=== PATIENT | male | born 1975 ===

== ENCOUNTER 2019-12-07 09:36 | Outpatient (REF) | payer OTHER, SELFPAY | END 2019-12-07 09:37 | disposition home or self-care (01) | LOC: HO.LAB 09:36 | PROVIDERS: PCP Physician Assistant; Visit Provider Internal Medicine | DX: Z20.828 Contact with and (suspected) exposure to other viral communicable diseases (principal) | CPT/HCPCS: 87635 ==

== ENCOUNTER 2019-12-10 08:06 | Outpatient (REF) | payer OTHER, SELFPAY ==
[2019-12-10 09:42] LABS: Basophils Percent Auto 0.6 % (0-2); Imm Gran Abs Auto 0.03 X10*3/uL (0.00-0.03); Imm Gran Pct Auto 0.5 % (0.0-0.4); MANUAL DIFF FLAG SCAN; PLT CLUMP 1; SCAN SMEAR FLAG 1
[2019-12-10 09:44] LABS: Eosinophils Absolute Auto 0.1 X10*3/uL (0.0-0.4); Eosinophils Percent Auto 1.2 % (0-4); Hematocrit 40.4 % (42-52); Hemoglobin 13.1 g/dl (14.0-18.0); Lymphocytes Absolute Auto 2.2 X10*3/uL (1.2-4.9); Lymphocytes Percent Auto 32.6 % (20-40); Mean Corpuscular HGB Conc 32.4 g/dl (31.0-36.0); Mean Corpuscular Hemoglobin 29.6 pg (27.0-33.0); Mean Corpuscular Volume 91.2 fL (80-98); Mean Platelet Volume 11.2 fL (9.4-12.4); Monocytes Absolute Auto 0.4 X10*3/uL (0.1-1.2); Monocytes Percent Auto 6.6 % (2-11); Neutrophils Absolute Auto 3.9 X10*3/uL (2.0-8.3); Neutrophils Percent Auto 58.5 % (45-73); Platelet Count 204 X10*3/uL (160-400); Red Blood Count 4.43 X10*6/uL (4.60-5.80); Red Cell Distribution Width 12.7 % (11.0-16.0); White Blood Count 6.6 X10*3/uL (4.8-10.8)
[2019-12-10 10:14] LABS: SLIDE REVIEW VERIFIED
[2019-12-10 10:17] LABS: Alanine Aminotransferase 28 U/L (0-40); Albumin Level 4.1 g/dL (3.5-5.0); Alkaline Phosphatase 76 U/L (39-117); Anion Gap 13 (12-20); Aspartate Amino Transferase 23 U/L (5-37); Bilirubin Total 0.6 mg/dL (0.0-1.0); Blood Urea Nitrogen 11 mg/dL (9-16); Calcium 8.7 mg/dL (8.4-10.2); Carbon Dioxide 28 mmol/L (22-29); Chloride 102 mmol/L (96-108); Cholesterol 159 mg/dL; Estimated Glomerular Filt Rate > 60; Glucose Fasting 112 mg/dL (60-99); HDL Cholesterol 38 mg/dL; LDL Cholesterol Calculated 92 mg/dl; Potassium 4.4 mmol/l (3.3-5.1); Sodium 139 mmol/L (135-145); Total Protein 7.2 g/dL (6.5-8.0); Triglycerides 146 mg/dL
[2019-12-10 14:13] LABS: TSH reflex Free T4 2.08 mIU/mL (0.32-4.0)
== END 2019-12-10 08:07 | disposition home or self-care (01) ==
LOC: HO.LAB 08:06
PROVIDERS: PCP Physician Assistant; Visit Provider Physician Assistant
DX: I10 Essential (primary) hypertension (principal)
CPT/HCPCS: 36415; 80053; 80061; 84443; 85025

== ENCOUNTER → 2019-12-13 13:55 | Outpatient (BNVA) | payer OTHER, SELFPAY | PROVIDERS: PCP Physician Assistant; Visit Provider Internal Medicine Cardiovascular Disease | DX: I10 Essential (primary) hypertension (principal); Z79.899 Other long term (current) drug therapy | CPT/HCPCS: 99212 ==

== ENCOUNTER → 2019-12-27 08:45 | Outpatient (BNVA) | payer OTHER, SELFPAY | PROVIDERS: PCP Physician Assistant; Referring Provider Physician Assistant; Visit Provider Internal Medicine Cardiovascular Disease | DX: Z76.89 Persons encountering health services in other specified circumstances (principal) ==

== ENCOUNTER → 2020-01-24 09:32 | Outpatient (BNVA) | payer OTHER, SELFPAY | PROVIDERS: PCP Physician Assistant; Visit Provider Internal Medicine | DX: G47.33 Obstructive sleep apnea (adult) (pediatric) (principal); R06.00 Dyspnea, unspecified; F17.210 Nicotine dependence, cigarettes, uncomplicated; E66.01 Morbid (severe) obesity due to excess calories; Z99.89 Dependence on other enabling machines and devices | CPT/HCPCS: 99212 ==

== ENCOUNTER 2020-01-27 07:40 | Outpatient (REF) | payer OTHER, SELFPAY ==
--- NOTE | 2020-01-27 16:09 | PFT_ITS ---
FLOWS: FEV1 of 77% of predicted at 2.83 L. FVC 68% of predicted at 3.18 L. FEV1 to FVC ratio of 0.89. No bronchodilator response. LUNG VOLUMES: Total lung capacity 76% of predicted at 4.87 L. Residual volume 95% of predicted at 1.71 L. Slow vital capacity 69% of predicted at 3.15 L. Expiratory reserve volume 11% of predicted at 0.16 L. Diffusion capacity is normal. In comparison to pulmonary function test performed in May of 2018, FEV1 has been without significant changes, FVC has decreased by 0.38 L; total lung capacity, residual volume, slow vital capacity have been without significant changes; expiratory reserve volume has decreased by 0.35 L; diffusion capacity has improved by 1.08 mL/minute/mmHg. IMPRESSION: Moderate restrictive ventilatory defect with no bronchodilator response. Decreased expiratory reserve volume suggests extrathoracic restriction likely secondary to abdominal obesity. Of note, the patient has significantly elevated body mass index. MD OSWALD Cheng/MODL / [id number]
== END 2020-01-27 07:41 | disposition home or self-care (01) ==
LOC: HO.RESP 07:40
PROVIDERS: Visit Provider Internal Medicine
DX: E66.01 Morbid (severe) obesity due to excess calories (principal); R06.00 Dyspnea, unspecified
CPT/HCPCS: 94060; 94727; 94729

== ENCOUNTER → 2020-02-02 07:38 | Outpatient (BNVA) | payer OTHER, SELFPAY | PROVIDERS: PCP Physician Assistant; Visit Provider Surgery | DX: Z76.89 Persons encountering health services in other specified circumstances (principal) ==

== ENCOUNTER → 2020-02-10 09:09 | Outpatient (BNVA) | payer OTHER, SELFPAY | PROVIDERS: PCP Physician Assistant; Visit Provider Physician Assistant | DX: Z76.89 Persons encountering health services in other specified circumstances (principal) ==

== ENCOUNTER → 2020-02-18 08:06 | Outpatient (BNVA) | payer OTHER, SELFPAY | PROVIDERS: PCP Physician Assistant; Visit Provider Physician Assistant | DX: Z76.89 Persons encountering health services in other specified circumstances (principal) ==

== ENCOUNTER → 2020-02-25 09:35 | Outpatient (BNVA) | payer OTHER, SELFPAY | PROVIDERS: PCP Physician Assistant; Visit Provider Physician Assistant | DX: Z76.89 Persons encountering health services in other specified circumstances (principal) ==

== ENCOUNTER → 2020-03-01 08:08 | Outpatient (BNVA) | payer OTHER, SELFPAY | PROVIDERS: PCP Physician Assistant; Visit Provider Surgery ==

== ENCOUNTER → 2020-03-03 10:28 | Outpatient (BNVA) | payer OTHER, SELFPAY | PROVIDERS: PCP Physician Assistant; Visit Provider Physician Assistant ==

== ENCOUNTER → 2020-03-10 09:17 | Outpatient (BNVA) | payer OTHER, SELFPAY | PROVIDERS: PCP Physician Assistant; Visit Provider Physician Assistant ==

== ENCOUNTER 2020-03-15 09:08 | Outpatient (REF) | payer OTHER, SELFPAY ==
[2020-03-15 09:46] LABS: MANUAL DIFF FLAG NO
[2020-03-15 09:52] LABS: Basophils Percent Auto 0.2 % (0-2); Hematocrit 40.3 % (42-52); Hemoglobin 13.2 g/dl (14.0-18.0); Imm Gran Abs Auto 0.06 X10*3/uL (0.00-0.03); Imm Gran Pct Auto 0.5 % (0.0-0.4); Lymphocytes Absolute Auto 2.5 X10*3/uL (1.2-4.9); Lymphocytes Percent Auto 20.3 % (20-40); Mean Corpuscular HGB Conc 32.8 g/dl (31.0-36.0); Mean Corpuscular Hemoglobin 29.4 pg (27.0-33.0); Mean Corpuscular Volume 89.8 fL (80-98); Monocytes Absolute Auto 0.7 X10*3/uL (0.1-1.2); Monocytes Percent Auto 5.7 % (2-11); Neutrophils Absolute Auto 8.9 X10*3/uL (2.0-8.3); Neutrophils Percent Auto 73.3 % (45-73); Platelet Count 256 X10*3/uL (160-400); Red Blood Count 4.49 X10*6/uL (4.60-5.80); Red Cell Distribution Width 13.3 % (11.0-16.0); White Blood Count 12.1 X10*3/uL (4.8-10.8)
[2020-03-15 10:22] LABS: Alanine Aminotransferase 18 U/L (0-40); Albumin Level 4.4 g/dL (3.5-5.0); Alkaline Phosphatase 78 U/L (39-117); Anion Gap 15 (12-20); Aspartate Amino Transferase 17 U/L (5-37); Bilirubin Total 0.4 mg/dL (0.0-1.0); Blood Urea Nitrogen 13 mg/dL (9-16); Calcium 9.4 mg/dL (8.4-10.2); Carbon Dioxide 25 mmol/L (22-29); Chloride 104 mmol/L (96-108); Cholesterol 162 mg/dL; Estimated Glomerular Filt Rate > 60; Glucose Fasting 103 mg/dL (60-99); HDL Cholesterol 41 mg/dL; LDL Cholesterol Calculated 103 mg/dl; Potassium 4.1 mmol/L (3.3-5.1); Sodium 140 mmol/L (135-145); Total Protein 7.8 g/dL (6.5-8.0); Triglycerides 90 mg/dL
[2020-03-15 10:26] LABS: Microalbum/Creatinine Ratio Ur 36.8 ug/mg cr
[2020-03-15 10:33] LABS: Estimated Average Glucose 120 mg/dL; Hemoglobin A1c % 5.8 %
[2020-03-15 10:46] LABS: TSH reflex Free T4 0.84 uIU/mL (0.32-4.0)
== END 2020-03-15 09:09 | disposition home or self-care (01) ==
LOC: HO.LAB 09:08
PROVIDERS: PCP Physician Assistant; Visit Provider Physician Assistant
DX: I10 Essential (primary) hypertension (principal); E66.01 Morbid (severe) obesity due to excess calories
CPT/HCPCS: 36415; 80053; 80061; 82043; 83036; 84443; 85025

== ENCOUNTER → 2020-03-17 10:39 | Outpatient (BNVA) | payer OTHER, SELFPAY | PROVIDERS: PCP Physician Assistant; Visit Provider Surgery ==

== ENCOUNTER → 2020-03-24 09:24 | Outpatient (BNVA) | payer OTHER, SELFPAY | PROVIDERS: PCP Physician Assistant; Visit Provider Physician Assistant ==

== ENCOUNTER → 2020-03-31 08:34 | Outpatient (BNVA) | payer OTHER, SELFPAY | PROVIDERS: PCP Physician Assistant; Visit Provider Surgery ==

== ENCOUNTER → 2020-04-07 10:20 | Outpatient (BNVA) | payer OTHER, SELFPAY | PROVIDERS: PCP Physician Assistant; Visit Provider Physician Assistant ==

== ENCOUNTER 2020-04-11 07:35 | Outpatient (REF) | payer OTHER, SELFPAY ==
--- NOTE | ~2020-04-11 | XR_ITS ---
EXAMINATION: BILATERAL KNEE X-RAY CLINICAL INFORMATION: Pain COMPARISON: Previous x-ray most recent April 2019 TECHNIQUE: 3 views of each knee FINDINGS: Right: Bone alignment is normal. No fracture or dislocation is seen. There is mild joint space narrowing at the medial femoral tibial joint. There are small osteophytes at the patellofemoral joint. There is no significant joint effusion. Left: Bone alignment is normal. No fracture or dislocation is seen. There are small osteophytes at the medial femoral tibial and patellofemoral joints. There is no significant joint effusion. XR/XR knee LT 2V IMPRESSION: Mild bilateral arthritis.
--- NOTE | ~2020-04-11 | XR_ITS ---
EXAMINATION: BILATERAL KNEE X-RAY CLINICAL INFORMATION: Pain COMPARISON: Previous x-ray most recent April 2019 TECHNIQUE: 3 views of each knee FINDINGS: Right: Bone alignment is normal. No fracture or dislocation is seen. There is mild joint space narrowing at the medial femoral tibial joint. There are small osteophytes at the patellofemoral joint. There is no significant joint effusion. Left: Bone alignment is normal. No fracture or dislocation is seen. There are small osteophytes at the medial femoral tibial and patellofemoral joints. There is no significant joint effusion. XR/XR knee RT 2V IMPRESSION: Mild bilateral arthritis.
--- NOTE | ~2020-04-11 | XR_ITS ---
EXAMINATION: BILATERAL KNEE X-RAY CLINICAL INFORMATION: Pain COMPARISON: Previous x-ray most recent April 2019 TECHNIQUE: 3 views of each knee FINDINGS: Right: Bone alignment is normal. No fracture or dislocation is seen. There is mild joint space narrowing at the medial femoral tibial joint. There are small osteophytes at the patellofemoral joint. There is no significant joint effusion. Left: Bone alignment is normal. No fracture or dislocation is seen. There are small osteophytes at the medial femoral tibial and patellofemoral joints. There is no significant joint effusion. XR/XR knee standing BI IMPRESSION: Mild bilateral arthritis.
== END 2020-04-11 07:36 | disposition home or self-care (01) ==
LOC: HO.XRAY 07:35
PROVIDERS: PCP Physician Assistant; Visit Provider Orthopaedic Surgery
DX: M17.0 Bilateral primary osteoarthritis of knee (principal); F17.210 Nicotine dependence, cigarettes, uncomplicated
CPT/HCPCS: 20610; 73560; 73565; 99212

== ENCOUNTER → 2020-04-12 08:49 | Outpatient (BNVA) | payer OTHER, SELFPAY | PROVIDERS: PCP Physician Assistant; Visit Provider Internal Medicine Cardiovascular Disease | DX: R06.00 Dyspnea, unspecified (principal); I10 Essential (primary) hypertension | CPT/HCPCS: 99212; J1040 ==

== ENCOUNTER → 2020-04-14 10:48 | Outpatient (BNVA) | payer OTHER, SELFPAY | PROVIDERS: PCP Physician Assistant; Visit Provider Physician Assistant ==

== ENCOUNTER → 2020-04-21 10:08 | Outpatient (BNVA) | payer OTHER, SELFPAY | PROVIDERS: PCP Physician Assistant; Visit Provider Physician Assistant ==

== ENCOUNTER → 2020-04-24 08:35 | Outpatient (BNVA) | payer OTHER, SELFPAY | PROVIDERS: PCP Physician Assistant; Visit Provider Surgery ==

== ENCOUNTER 2020-04-26 09:22 | Outpatient (REF) | payer OTHER, SELFPAY | END 2020-04-26 09:23 | disposition home or self-care (01) | LOC: HO.LAB 09:22 | PROVIDERS: Visit Provider Internal Medicine | DX: Z20.822 Contact with and (suspected) exposure to COVID-19 (principal) | CPT/HCPCS: 36415; C9803; U0003; U0005 ==

== ENCOUNTER → 2020-04-28 11:36 | Outpatient (BNVA) | payer OTHER, SELFPAY | PROVIDERS: PCP Physician Assistant; Visit Provider Physician Assistant ==

== ENCOUNTER 2020-05-03 11:06 | Outpatient (REF) | payer OTHER, SELFPAY | END 2020-05-03 11:07 | disposition home or self-care (01) | LOC: HO.LAB 11:06 | PROVIDERS: Visit Provider Internal Medicine | DX: Z20.822 Contact with and (suspected) exposure to COVID-19 (principal) | CPT/HCPCS: 36415; C9803; U0003; U0005 ==

== ENCOUNTER → 2020-05-05 09:58 | Outpatient (BNVA) | payer OTHER, SELFPAY | PROVIDERS: PCP Physician Assistant; Visit Provider Physician Assistant ==

== ENCOUNTER → 2020-05-19 08:11 | Outpatient (BNVA) | payer OTHER, SELFPAY | PROVIDERS: PCP Physician Assistant; Visit Provider Surgery ==

== ENCOUNTER → 2020-06-02 08:44 | Outpatient (BNVA) | payer OTHER, SELFPAY | PROVIDERS: PCP Physician Assistant; Visit Provider Physician Assistant ==

== ENCOUNTER → 2020-06-09 09:12 | Outpatient (BNVA) | payer OTHER, SELFPAY | PROVIDERS: PCP Physician Assistant; Referring Provider Physician Assistant; Visit Provider Physician Assistant ==

== ENCOUNTER → 2020-06-16 08:27 | Outpatient (BNVA) | payer OTHER, SELFPAY | PROVIDERS: PCP Physician Assistant; Visit Provider Surgery ==

== ENCOUNTER → 2020-07-17 07:40 | Outpatient (BNVA) | payer OTHER, SELFPAY | PROVIDERS: PCP Physician Assistant; Visit Provider Surgery ==

== ENCOUNTER → 2020-09-01 07:28 | Outpatient (BNVA) | payer OTHER, SELFPAY | PROVIDERS: PCP Physician Assistant; Visit Provider Surgery ==

== ENCOUNTER → 2020-09-08 08:02 | Outpatient (BNVA) | payer OTHER, SELFPAY | PROVIDERS: PCP Physician Assistant; Visit Provider Surgery ==

== ENCOUNTER → 2020-09-12 09:11 | Outpatient (BNVA) | payer OTHER, SELFPAY | PROVIDERS: Visit Provider Orthopaedic Surgery | DX: M17.0 Bilateral primary osteoarthritis of knee (principal) | CPT/HCPCS: 20610; 99212; J1040 ==

== ENCOUNTER → 2020-09-26 09:36 | Outpatient (BNVA) | payer OTHER, SELFPAY | PROVIDERS: PCP Physician Assistant; Visit Provider Internal Medicine | DX: G47.33 Obstructive sleep apnea (adult) (pediatric) (principal); E66.01 Morbid (severe) obesity due to excess calories; J98.4 Other disorders of lung; Z99.89 Dependence on other enabling machines and devices | CPT/HCPCS: 99212 ==

== ENCOUNTER → 2020-11-06 09:17 | Outpatient (BNVA) | payer OTHER, SELFPAY | PROVIDERS: PCP Physician Assistant; Referring Provider Physician Assistant; Visit Provider Internal Medicine Cardiovascular Disease ==

== ENCOUNTER 2021-02-01 07:20 | Outpatient (REF) | payer OTHER, SELFPAY | END 2021-02-01 07:21 | disposition home or self-care (01) | LOC: HO.HMGCLDS 07:20 | PROVIDERS: PCP Physician Assistant; Visit Provider Physician Assistant | DX: Z20.822 Contact with and (suspected) exposure to COVID-19 (principal) | CPT/HCPCS: C9803; U0003; U0005 ==

== ENCOUNTER → 2021-02-26 07:53 | Outpatient (BNVA) | payer OTHER, SELFPAY | PROVIDERS: PCP Physician Assistant; Visit Provider Orthopaedic Surgery | DX: M17.0 Bilateral primary osteoarthritis of knee (principal); E66.01 Morbid (severe) obesity due to excess calories; Z68.45 Body mass index [BMI] 70 or greater, adult | CPT/HCPCS: 20610; 99212; J1100 ==

== ENCOUNTER 2021-03-19 14:39 | Outpatient (REF) | payer OTHER, SELFPAY | END 2021-03-19 14:40 | disposition home or self-care (01) | LOC: HO.HOSX 14:39 | PROVIDERS: Visit Provider Orthopaedic Surgery | DX: Z13.89 Encounter for screening for other disorder (principal) ==

== ENCOUNTER 2021-03-20 11:30 | Outpatient (REF) | payer OTHER, SELFPAY ==
--- NOTE | ~2021-03-20 | XR_ITS ---
EXAMINATION: XR KNEE, BILATERAL CLINICAL INFORMATION: Pain in the knees. COMPARISON: Bilateral knee x-rays of April 2020. TECHNIQUE: 3 views of each knee. FINDINGS: RIGHT KNEE: Medial compartment: Joint space narrowing and small marginal osteophytes indicative of vrzl-ii-vxdtqujs osteoarthritis. Lateral compartment: Marginal osteophytes without joint space narrowing indicative of mild osteoarthritis. Patellofemoral compartment: Marginal osteophytes and subchondral cystic change indicative of gvtj-qt-omaevcbd osteoarthritis unchanged. No effusion. LEFT KNEE: Medial compartment: Marginal osteophytes and mild joint space narrowing indicative of yxpk-gm-rzjjlkxz osteoarthritis unchanged. Lateral compartment: Marginal osteophytes without joint space narrowing indicative of mild arthrosis unchanged. Patellofemoral compartment: Marginal osteophytes indicative of mild osteoarthritis unchanged. No effusion. XR/XR knee LT 2V IMPRESSION: Right knee: Osteoarthritis unchanged with degenerative changes most prominent in the medial compartment being amds-[id number]. Left knee: Osteoarthritis unchanged with degenerative changes most prominent in the medial compartment which is noix-iy-jiudknaq.
--- NOTE | ~2021-03-20 | XR_ITS ---
EXAMINATION: XR KNEE, BILATERAL CLINICAL INFORMATION: Pain in the knees. COMPARISON: Bilateral knee x-rays of April 2020. TECHNIQUE: 3 views of each knee. FINDINGS: RIGHT KNEE: Medial compartment: Joint space narrowing and small marginal osteophytes indicative of rycf-zm-zbnwfpiv osteoarthritis. Lateral compartment: Marginal osteophytes without joint space narrowing indicative of mild osteoarthritis. Patellofemoral compartment: Marginal osteophytes and subchondral cystic change indicative of zirn-ix-xaruoauj osteoarthritis unchanged. No effusion. LEFT KNEE: Medial compartment: Marginal osteophytes and mild joint space narrowing indicative of ozfg-wx-oxorskfr osteoarthritis unchanged. Lateral compartment: Marginal osteophytes without joint space narrowing indicative of mild arthrosis unchanged. Patellofemoral compartment: Marginal osteophytes indicative of mild osteoarthritis unchanged. No effusion. XR/XR knee standing BI IMPRESSION: Right knee: Osteoarthritis unchanged with degenerative changes most prominent in the medial compartment being hpxn-kz-qekfofen. Left knee: Osteoarthritis unchanged with degenerative changes most prominent in the medial compartment which is qhji-ql-ssmimoop.
--- NOTE | ~2021-03-20 | XR_ITS ---
EXAMINATION: XR KNEE, BILATERAL CLINICAL INFORMATION: Pain in the knees. COMPARISON: Bilateral knee x-rays of April 2020. TECHNIQUE: 3 views of each knee. FINDINGS: RIGHT KNEE: Medial compartment: Joint space narrowing and small marginal osteophytes indicative of roqa-qx-bawbtaoa osteoarthritis. Lateral compartment: Marginal osteophytes without joint space narrowing indicative of mild osteoarthritis. Patellofemoral compartment: Marginal osteophytes and subchondral cystic change indicative of lvqb-eu-xathrais osteoarthritis unchanged. No effusion. LEFT KNEE: Medial compartment: Marginal osteophytes and mild joint space narrowing indicative of miwf-cu-fncirmhg osteoarthritis unchanged. Lateral compartment: Marginal osteophytes without joint space narrowing indicative of mild arthrosis unchanged. Patellofemoral compartment: Marginal osteophytes indicative of mild osteoarthritis unchanged. No effusion. XR/XR knee RT 2V IMPRESSION: Right knee: Osteoarthritis unchanged with degenerative changes most prominent in the medial compartment being ralr-jm-fxnyebwr. Left knee: Osteoarthritis unchanged with degenerative changes most prominent in the medial compartment which is ihpa-bb-xtwnamwa.
== END 2021-03-20 11:31 | disposition home or self-care (01) ==
LOC: HO.XRAY 11:30
PROVIDERS: PCP Physician Assistant; Visit Provider Orthopaedic Surgery
DX: M25.561 Pain in right knee (principal); M25.562 Pain in left knee
CPT/HCPCS: 73560; 73565

== ENCOUNTER → 2021-04-04 09:08 | Outpatient (BNVA) | payer OTHER, SELFPAY | PROVIDERS: PCP Physician Assistant; Visit Provider Internal Medicine | DX: G47.33 Obstructive sleep apnea (adult) (pediatric) (principal); J98.4 Other disorders of lung; E66.01 Morbid (severe) obesity due to excess calories; Z99.89 Dependence on other enabling machines and devices; Z68.45 Body mass index [BMI] 70 or greater, adult | CPT/HCPCS: 99212 ==

== ENCOUNTER → 2021-04-16 14:06 | Outpatient (BNVA) | payer OTHER, SELFPAY | PROVIDERS: PCP Physician Assistant; Visit Provider Orthopaedic Surgery | DX: M17.0 Bilateral primary osteoarthritis of knee (principal); E66.01 Morbid (severe) obesity due to excess calories | CPT/HCPCS: 99212 ==

== ENCOUNTER 2021-05-01 10:45 | Outpatient (REF) | payer OTHER, SELFPAY ==
[2021-05-01 12:02] LABS: Hematocrit 41.8 % (42.0-52.0); Hemoglobin 13.5 g/dl (14.0-18.0); Mean Corpuscular HGB Conc 32.3 g/dl (31.0-36.0); Mean Corpuscular Hemoglobin 29.5 pg (27.0-33.0); Mean Corpuscular Volume 91.3 fL (80.0-98.0); Mean Platelet Volume 10.8 fL (9.4-12.4); Platelet Count 228 X10*3/uL (160-400); Red Blood Count 4.58 X10*6/uL (4.60-5.80); Red Cell Distribution Width 13.2 % (11.0-16.0); White Blood Count 8.3 X10*3/uL (4.8-10.8)
[2021-05-01 12:35] LABS: Alanine Aminotransferase 26 U/L (0-40); Albumin Level 4.1 g/dL (3.5-5.0); Alkaline Phosphatase 73 U/L (39-117); Anion Gap 13 (12-20); Aspartate Amino Transferase 24 U/L (5-37); Bilirubin Total 0.5 mg/dL (0.0-1.0); Blood Urea Nitrogen 11 mg/dL (9-16); Calcium 9.6 mg/dL (8.4-10.2); Carbon Dioxide 27 mmol/L (22-29); Chloride 104 mmol/L (96-108); Cholesterol 162 mg/dL; Estimated Glomerular Filt Rate > 60; Glucose Fasting 97 mg/dL (60-99); HDL Cholesterol 47 mg/dL; LDL Cholesterol Calculated 75 mg/dl; Potassium 4.5 mmol/L (3.3-5.1); Sodium 139 mmol/L (135-145); Total Protein 7.3 g/dL (6.5-8.0); Triglycerides 203 mg/dL
[2021-05-01 12:41] LABS: Creatinine Urine 135.36 mg/dL; Microalbum/Creatinine Ratio Ur 4.4 ug/mg cr
[2021-05-01 12:58] LABS: Prostate Specific Antigen Scr 0.09 ng/mL (<0.05-4.0); TSH reflex Free T4 1.92 uIU/mL (0.32-4.0)
[2021-05-01 12:59] LABS: Estimated Average Glucose 126 mg/dL
== END 2021-05-01 10:46 | disposition home or self-care (01) ==
LOC: HO.LAB 10:45
PROVIDERS: PCP Physician Assistant; Visit Provider Physician Assistant
DX: I10 Essential (primary) hypertension (principal); E66.01 Morbid (severe) obesity due to excess calories; Z12.5 Encounter for screening for malignant neoplasm of prostate
CPT/HCPCS: 36415; 80053; 80061; 82043; 83036; 84153; 84443; 85027

== ENCOUNTER → 2021-05-07 09:13 | Outpatient (BNVA) | payer OTHER, SELFPAY | PROVIDERS: PCP Physician Assistant; Referring Provider Physician Assistant; Visit Provider Internal Medicine Cardiovascular Disease | DX: I10 Essential (primary) hypertension (principal); E66.01 Morbid (severe) obesity due to excess calories; Z68.45 Body mass index [BMI] 70 or greater, adult | CPT/HCPCS: 93005; 99212 ==

== ENCOUNTER → 2021-10-10 08:55 | Outpatient (BNVA) | payer OTHER, SELFPAY | PROVIDERS: PCP Physician Assistant; Visit Provider Internal Medicine | DX: E66.01 Morbid (severe) obesity due to excess calories (principal); G47.33 Obstructive sleep apnea (adult) (pediatric); Z99.89 Dependence on other enabling machines and devices; Z68.45 Body mass index [BMI] 70 or greater, adult | CPT/HCPCS: 99212 ==

== ENCOUNTER 2021-11-12 08:44 | Outpatient (REF) | payer OTHER, SELFPAY ==
[2021-11-12 09:13] LABS: Hematocrit 40.7 % (42.0-52.0); Hemoglobin 13.3 g/dl (14.0-18.0); Mean Corpuscular HGB Conc 32.7 g/dl (31.0-36.0); Mean Corpuscular Hemoglobin 29.4 pg (27.0-33.0); Mean Corpuscular Volume 89.8 fL (80.0-98.0); Mean Platelet Volume 10.7 fL (9.4-12.4); Platelet Count 217 X10*3/uL (160-400); Red Blood Count 4.53 X10*6/uL (4.60-5.80); White Blood Count 6.1 X10*3/uL (4.8-10.8)
[2021-11-12 09:25] LABS: Estimated Average Glucose 123 mg/dL; Hemoglobin A1c % 5.9 %
[2021-11-12 09:46] LABS: B Type Natriuretic Peptide 30 pg/mL (<100)
[2021-11-12 09:58] LABS: Alanine Aminotransferase 30 U/L (0-40); Albumin Level 4.1 g/dL (3.5-5.0); Alkaline Phosphatase 67 U/L (39-117); Anion Gap 15 (12-20); Aspartate Amino Transferase 26 U/L (5-37); Bilirubin Total 0.3 mg/dL (0.0-1.0); Blood Urea Nitrogen 9 mg/dL (9-16); Calcium 9.5 mg/dL (8.4-10.2); Carbon Dioxide 25 mmol/L (22-29); Chloride 104 mmol/L (96-108); Cholesterol 157 mg/dL; Estimated Glomerular Filt Rate > 60; Glucose Fasting 105 mg/dL (60-99); HDL Cholesterol 35 mg/dL; LDL Cholesterol Calculated 92 mg/dl; Potassium 4.3 mmol/L (3.3-5.1); Sodium 140 mmol/L (135-145); Total Protein 7.2 g/dL (6.5-8.0); Triglycerides 153 mg/dL
[2021-11-12 10:20] LABS: TSH reflex Free T4 2.01 uIU/mL (0.32-4.0)
[2021-11-12 10:22] LABS: Creatinine Urine 144.12 mg/dL; Microalbum/Creatinine Ratio Ur 6.2 ug/mg cr
== END 2021-11-12 08:45 | disposition home or self-care (01) ==
LOC: HO.LAB 08:44
PROVIDERS: Absent Provider Physician Assistant; PCP Physician Assistant; Visit Provider Nurse Practitioner Family
DX: R60.0 Localized edema (principal); I10 Essential (primary) hypertension
CPT/HCPCS: 36415; 80053; 80061; 82043; 83036; 83880; 84443; 85027

== ENCOUNTER → 2021-12-04 13:51 | Outpatient (BNVA) | payer OTHER, SELFPAY | PROVIDERS: PCP Physician Assistant; Referring Provider Physician Assistant; Visit Provider Nurse Practitioner Family | DX: R06.00 Dyspnea, unspecified (principal); I10 Essential (primary) hypertension; E66.01 Morbid (severe) obesity due to excess calories; G47.33 Obstructive sleep apnea (adult) (pediatric); F17.210 Nicotine dependence, cigarettes, uncomplicated; Z99.89 Dependence on other enabling machines and devices; Z68.45 Body mass index [BMI] 70 or greater, adult | CPT/HCPCS: 99212 ==

== ENCOUNTER → 2022-04-17 09:23 | Outpatient (BNVA) | payer OTHER, SELFPAY | PROVIDERS: PCP Physician Assistant; Visit Provider Internal Medicine | DX: G47.33 Obstructive sleep apnea (adult) (pediatric) (principal); E66.01 Morbid (severe) obesity due to excess calories; J98.4 Other disorders of lung; Z99.89 Dependence on other enabling machines and devices; Z68.45 Body mass index [BMI] 70 or greater, adult | CPT/HCPCS: 99212 ==

== ENCOUNTER → 2022-06-04 07:47 | Outpatient (BNVA) | payer OTHER, SELFPAY | PROVIDERS: PCP Physician Assistant; Referring Provider Physician Assistant; Visit Provider Physician Assistant Surgical ==

== ENCOUNTER 2022-07-22 07:51 | Outpatient (REF) | payer OTHER, SELFPAY ==
[2022-07-25 11:37] LABS: H Pylori Breath Test Negative (Negative)
== END 2022-07-22 07:52 | disposition home or self-care (01) ==
LOC: HO.LNP 07:51
PROVIDERS: Visit Provider Physician Assistant
DX: Z01.818 Encounter for other preprocedural examination (principal); E66.01 Morbid (severe) obesity due to excess calories; G47.33 Obstructive sleep apnea (adult) (pediatric); I10 Essential (primary) hypertension; R06.00 Dyspnea, unspecified; R94.31 Abnormal electrocardiogram [ECG] [EKG]; Z99.89 Dependence on other enabling machines and devices; Z11.0 Encounter for screening for intestinal infectious diseases
CPT/HCPCS: 83013

== ENCOUNTER → 2022-07-22 07:56 | Outpatient (BNVA) | payer OTHER, SELFPAY | PROVIDERS: PCP Physician Assistant; Referring Provider Physician Assistant; Visit Provider Physician Assistant | DX: Z01.810 Encounter for preprocedural cardiovascular examination (principal); I10 Essential (primary) hypertension; R06.00 Dyspnea, unspecified; I45.19 Other right bundle-branch block; R94.31 Abnormal electrocardiogram [ECG] [EKG]; G47.33 Obstructive sleep apnea (adult) (pediatric); E66.01 Morbid (severe) obesity due to excess calories; G43.009 Migraine without aura, not intractable, without status migrainosus; M17.0 Bilateral primary osteoarthritis of knee; F33.1 Major depressive disorder, recurrent, moderate; Z68.45 Body mass index [BMI] 70 or greater, adult; Z99.89 Dependence on other enabling machines and devices | CPT/HCPCS: 99202; 99211 ==

== ENCOUNTER 2022-07-23 09:06 | Outpatient (REF) | payer OTHER, SELFPAY ==
--- NOTE | 2022-07-23 09:12 | ECG_ITS ---
Test Reason : PREOP Blood Pressure : / mmHG Vent. Rate : 068 BPM Atrial Rate : 068 BPM P-R Int : 144 ms QRS Dur : 098 ms QT Int : 412 ms P-R-T Axes : 080 048 032 degrees QTc Int : 438 ms Normal sinus rhythm Normal ECG When compared to the previous EKG of No significant changes seen Referred By: Renee Parada Electronically Signed By:ZHANNA LAWRENCE MD
[2022-07-23 09:40] LABS: MANUAL DIFF FLAG NO
[2022-07-23 10:46] LABS: Basophils Absolute Auto 0.1 X10*3/uL (0.0-0.2); Basophils Percent Auto 0.7 % (0-2); Eosinophils Absolute Auto 0.1 X10*3/uL (0.0-0.4); Eosinophils Percent Auto 1.5 % (0-4); Hematocrit 38.7 % (42.0-52.0); Hemoglobin 12.6 g/dl (14.0-18.0); Imm Gran Abs Auto 0.03 X10*3/uL (0.00-0.03); Imm Gran Pct Auto 0.4 % (0.0-0.4); Lymphocytes Absolute Auto 2.7 X10*3/uL (1.2-4.9); Lymphocytes Percent Auto 36.3 % (20-40); Mean Corpuscular HGB Conc 32.6 g/dl (31.0-36.0); Mean Corpuscular Hemoglobin 29.4 pg (27.0-33.0); Mean Corpuscular Volume 90.2 fL (80.0-98.0); Mean Platelet Volume 10.9 fL (9.4-12.4); Monocytes Absolute Auto 0.6 X10*3/uL (0.1-1.2); Monocytes Percent Auto 7.9 % (2-11); Neutrophils Absolute Auto 3.9 x10*3/uL (2.0-8.3); Neutrophils Percent Auto 53.2 % (45-73); Platelet Count 217 X10*3/uL (160-400); Red Blood Count 4.29 X10*6/uL (4.60-5.80); Red Cell Distribution Width 13.3 % (11.0-16.0); White Blood Count 7.3 X10*3/uL (4.8-10.8)
[2022-07-23 10:57] LABS: Estimated Average Glucose 117 mg/dL; Hemoglobin A1c % 5.7 %
[2022-07-23 11:44] LABS: Alanine Aminotransferase 20 U/L (0-40); Albumin Level 3.9 g/dL (3.5-5.0); Alkaline Phosphatase 70 U/L (39-117); Anion Gap 12 (12-20); Aspartate Amino Transferase 21 U/L (5-37); Bilirubin Total 0.5 mg/dL (0.0-1.0); Blood Urea Nitrogen 11 mg/dL (9-16); Calcium 9.1 mg/dL (8.4-10.2); Carbon Dioxide 27 mmol/L (22-29); Chloride 106 mmol/L (96-108); Cholesterol 139 mg/dL; Estimated Glomerular Filt Rate > 60; Glucose Random 98 mg/dL (60-115); HDL Cholesterol 37 mg/dL; Iron 68 mcg/dL (45-160); LDL Cholesterol Calculated 81 mg/dl; Percent Iron Saturation 29 % (15-50); Sodium 141 mmol/L (135-145); Total Iron Binding Capacity 238 mcg/dL (228-428); Total Protein 7.4 g/dL (6.5-8.0); Triglycerides 109 mg/dL; Unsaturated Iron Binding 170 ug/dL
[2022-07-23 11:58] LABS: Ferritin 193 ng/mL (20-250); Insulin 18 uU/mL (2-29); TSH reflex Free T4 2.17 uIU/mL (0.32-4.0); Vitamin D 25-OH Total 15.4 ng/mL (>30)
[2022-07-23 12:15] LABS: Folate 11.9 ng/mL (> or = 4.0); Vitamin B12 292 pg/mL (200-900)
[2022-07-24 13:24] LABS: PTHI 77 pg/mL (16-77)
[2022-07-27 01:24] LABS: Zinc 77 mcg/dL (60-130)
[2022-07-28 01:09] LABS: Vitamin A 32 mcg/dL (38-98)
[2022-07-30 15:18] LABS: Vitamin B1 8 nmol/L (8-30)
== END 2022-07-23 09:07 | disposition home or self-care (01) ==
LOC: HO.LAB 09:06
PROVIDERS: PCP Physician Assistant; Visit Provider Physician Assistant
DX: Z01.818 Encounter for other preprocedural examination (principal); E66.01 Morbid (severe) obesity due to excess calories; G47.33 Obstructive sleep apnea (adult) (pediatric); I10 Essential (primary) hypertension; R06.00 Dyspnea, unspecified; R94.31 Abnormal electrocardiogram [ECG] [EKG]; Z99.89 Dependence on other enabling machines and devices
CPT/HCPCS: 36415; 80053; 80061; 82306; 82607; 82728; 82746; 83036; 83525; 83540; 83970; 84425; 84443; 84590; 84630; 85025; 86140; 93005

== ENCOUNTER → 2022-07-24 10:00 | Outpatient (BNVA) | payer OTHER, SELFPAY | PROVIDERS: PCP Physician Assistant; Visit Provider Counselor Mental Health ==

== ENCOUNTER → 2022-08-01 09:00 | Outpatient (BNVA) | payer OTHER, SELFPAY | PROVIDERS: PCP Physician Assistant; Visit Provider Counselor Mental Health ==

== ENCOUNTER → 2022-08-05 07:49 | Outpatient (REF) | payer OTHER, SELFPAY ==
--- NOTE | ~2022-08-05 | NM_ITS ---
Myocardial perfusion study Indication: Preoperative cardiovascular stratification Technique: The patient was brought in for a Lexiscan perfusion study on 08/05/2022. Patient performed low-level exercise and was injected 0.4 mg of Lexiscan intravenously. Within a minute of injection, 45 mCi of sestamibi was given intravenously. Images were obtained using the SPECT gamma camera interlaced with the gating device, however gating could not be performed due to atrial fibrillation. Images were obtained in supine position. Resting perfusion study was performed on 08/06/2022. Patient was administered 45 mCi of sestamibi intravenously at rest. Images were then obtained in supine position. Images obtained with and without CT attenuation. Total DLP 150 mGy-cm. Images were processed with the software and compared side to side in short axis, horizontal long axis and vertical long axis views. Findings: Both stress and rest perfusion imaging is suboptimal due to significant attenuation artifact related to body habitus The stress perfusion study showed non attenuated images show mildly reduced uptake in the inferoapical as well as the apical septal wall of the LV myocardium. Remainder of the LV myocardium appears to be normally perfused. Attenuation corrected images show some thinning of the inferoapical wall and mildly reduced uptake in the basal inferolateral of the LV myocardium.. The gated study was not performed due to atrial fibrillation. LV cavity is normal in size. Resting study shows non attenuated images show improved uptake in the inferoapical wall of the LV myocardium. Attenuation corrected images show improved uptake in the basal inferolateral wall of the myocardium.. Gating at rest was not performed due to atrial fibrillation The findings are consistent with equivocal with possible small area of focal inferoapical reversible defect suggestive of ischemia on non attenuated study. Reversible defect noted on attenuation corrected as well as probably attenuation correction.. NM/NM cardiolite stress test Impression: 1. Myocardial perfusion imaging study shows equivocal for small area of inferoapical ischemia 2. Gated LVEF is not obtained 3. Transient ischemic dilatation not present EKG is nondiagnostic for ischemia
--- NOTE | 2022-08-05 07:52 | CA_ITS ---
Acquisition Time: 2022-08-05 08:07:40 Total Exercise Time: 00:02:00 Test Indications: Abnormal ECG Medications: METOPROLOL HCTZ LISINOPRIL SUMATRIPTAN FLONASE CETIRIZINE TIZANADINE Protocol: LEXISCAN Max HR: 092 BPM 53% of Pred: 172 BPM Max BP: 124/082 mmHG Max Work Load: 1.0 METS Pharmacological stress test with Lexiscan injection while sitting and kicking his legs, without anginal symptoms, without arrhythmias, with normotensive response to injection, without EKG changes. Nuclear images pending. Test reviewed with Dr. Tolbert. Referred By: Renee Parada Overread By: YENIFER JOHNSON
== END ==
LOC: HO.CARD 07:49
PROVIDERS: PCP Physician Assistant; Visit Provider Physician Assistant
DX: Z01.818 Encounter for other preprocedural examination (principal); I10 Essential (primary) hypertension; R06.00 Dyspnea, unspecified; E66.01 Morbid (severe) obesity due to excess calories; R94.31 Abnormal electrocardiogram [ECG] [EKG]; G47.33 Obstructive sleep apnea (adult) (pediatric); Z99.89 Dependence on other enabling machines and devices
CPT/HCPCS: 78452; 93017; A9500; J0280; J2785

== ENCOUNTER → 2022-08-15 10:16 | Outpatient (BNVA) | payer OTHER, SELFPAY | PROVIDERS: PCP Physician Assistant; Visit Provider Dietitian, Registered | DX: E66.01 Morbid (severe) obesity due to excess calories (principal); Z68.45 Body mass index [BMI] 70 or greater, adult | CPT/HCPCS: 97802 ==

== ENCOUNTER 2022-08-19 09:55 | Outpatient (AMB) | payer OTHER, SELFPAY ==
--- NOTE | 2022-08-19 10:08 | MHC.OFFVISWM ---
Intake VS Expanded 08/19/22 10:09 Height 5 ft 7 in Weight 445 lb 3.2 oz BMI 69.7 BP 127/61 Blood Pressure Location Rt brachial Blood Pressure Position Sitting Pulse 79 Pulse Source Pulse Oximeter Temp 97.8 F Temperature Source Temporal Artery Scan Pulse Oximetry 97 Oxygen Delivery Method Room Air Body Fat 234.6 Body Fat Percentage 52.7 Free Fat Mass 210.6 Muscle Mass 200.4 Visceral Mass 49.0 Water Mass 168.4 BMR 3,177 Intake Visit Reasons: (OV) F/U SWL Allergies No Known Allergies Allergy (Verified 08/19/22 10:10) Medication List - Last Reconciled 08/19/22 by Renee Parada PA-C cetirizine 10 mg PO DAILY cholecalciferol (vitamin D3) 50 mcg PO DAILY fluticasone propionate 50 mcg/actuation 1 spray intranasal DAILY PRN hydrochlorothiazide 25 mg PO DAILY iron,carbonyl-vitamin C 65 mg iron- 125 mg (Vitron-C) 1 tab PO BEDTIME lisinopril 20 mg PO DAILY metoprolol succinate ER 50 mg PO DAILY sennosides (Senna Lax) 17.2 mg (2 x 8.6 mg) PO BEDTIME PRN 30 days sumatriptan succinate 25 mg PO BID PRN tizanidine 4 mg PO TID PRN vitamin A palmitate 6,000 mcg (2 x 3,000 mcg (10,000 unit)) PO DAILY 2 weeks HPI HPI Comments History of Present Illness Details This is the patients second appt for SWL. Starting weight was 460.2 lbs on 07/1222. TBWL is 15 lbs or 3% TBWL. Meal plan: wakes at 4:30 am 6am - Pure Protein RTD 12 pm - another shake an arange strawberreis 6pm - 14 forks of protein and (lots) cauliflower or other vegetable 8[m- another shake Exercise plan: has membership. 3-4 d - walks on track outside - 1 mile in 45 minutes, or 1.5 mile in 75 minutes. Pre op work up completed as follows: SWL classes - appts - will be seen again RD appts - follow up on 10/02 H pylori - negative Labs, - anemiai vit a and D ECG - normal, cardiac cath 2.5 years ago Stress test- Impression: ? 1.? Myocardial perfusion imaging study shows equivocal for small area of inferoapical ischemia 2.? Gated LVEF is not obtained 3. Transient ischemic dilatation not present ? EKG is nondiagnostic for ischemia Will try again to have [place] [facility] [place] than November for surgicla clearans.? ULS and UGI - September 23 [facility] Medical History Dyspnea on exertion Restrictive lung disease Surgical History No pertinent past surgical history Family History Father Colon cancer Mother Heart attack, Onset Age: 48 Social History Housing: House Alcohol intake: current Alcohol intake frequency: a few times a month Alcohol type: beer Patient Tobacco Use Status: Former Tobacco user Tobacco use type: Cigarette Years Smoked: 15 +/- e-Cigarette/Vaping Use: Never Used Second Hand Smoke Exposure: No service: No Current occupational status: unemployed Cognitive needs: No Hearing needs: No Vision needs: Yes Physical Exam Vital Signs: Last Vital Signs Temp 97.8 F 08/19/22 10:09 Pulse 79 08/19/22 10:09 BP 127/61 08/19/22 10:09 Pulse Ox 97 08/19/22 10:09 Oxygen Delivery Method Room Air 08/19/22 10:09 BMI result Body Mass Index 69.7 Assessment & Plan Assessment & Plan (1) Morbid obesity: Code(s): E66.01 - Morbid (severe) obesity due to excess calories Plan: SWL follow up ,TBWL 15 so far. Still needs changes with his meal plan 6am - shake 10am - shake 2pm - yogurt - 1/2 c berries 6pm - dinner 8pm - bar in 10 pieces Exercise changes --Treadmill -alternate 2 treadmill and walk outside - speed 2.5, incline 1-4 - goal of 30 minutes or 350 calories. walk Will arrange for earlier cards appt. All appts reveiwed, next appt with me in 3 weeks Patient is morbidly obese and is not considered stable at this time. I spent 30 minutes in total with patient reviewing/updating records, examining the patient and counseling the patient on weight management as detailed above. Coding Level of Care Code Est Pt Level 4 (54907) Diagnoses Morbid obesity E66.01
[2022-08-19 10:09] VITALS: BP 127/61; PULSE 79; TEMP 36.6; O2SAT 97; BMI 69.7
== END 2022-08-19 10:46 | disposition home or self-care (01) ==
PROVIDERS: PCP Physician Assistant; Visit Provider Physician Assistant
DX: E66.01 Morbid (severe) obesity due to excess calories (principal); Z68.44 Body mass index [BMI] 60.0-69.9, adult
CPT/HCPCS: 99214

== ENCOUNTER → 2022-08-19 10:10 | Outpatient (BNVA) | payer OTHER, SELFPAY | PROVIDERS: PCP Physician Assistant; Visit Provider Physician Assistant | DX: E66.01 Morbid (severe) obesity due to excess calories (principal); Z68.44 Body mass index [BMI] 60.0-69.9, adult | CPT/HCPCS: 99212 ==

== ENCOUNTER → 2022-08-22 07:42 | Outpatient (REF) | payer OTHER, SELFPAY ==
--- NOTE | 2022-08-22 07:44 | CA_ITS ---
Transthoracic Echocardiogram Patient (Last, First, Middle): Leonid RaoWally, Gender: Male Date of : 1975 Age: 46 Procedure Date: 08/22/2022 Procedure Type: Transthoracic Echocardiogram Location: OP Height: 170.18 cm Weight: 204.12 kg BSA: 2.85 m2 Heart Rate: 60 bpm BP: 130 / 75 mmHg Fitness Instructor: NUNU Referring MD: Renee Parada PA-C Jar Filler: Ty Lujan MD Symptoms: Z01.818 - Encounter for other preprocedural examination Study Quality: Technically Difficult/Contrast ECG Rhythm: Sinus Conclusions: - 1. Technically very limited study due to body habitus despite use of contrast agent 2. Limited evaluation of left ventricle with LVEF of greater than 50% on some views 3. Cardiac valves not well visualized Findings Procedure Information Contrast agent, definity, is being given per protocol without apparent complications. Left Ventricle The left ventricle was not well visualized. Regional wall motion abnormalities can not be excluded due to suboptimal endocardial definition. Technically limited study despite use of contrast agent. LV ejection fraction greater than 50% on limited views Right Ventricle The right ventricle was not well visualized. Atria The left atrium was not well visualized. Interatrial shunt cannot be excluded. The right atrium was not well visualized. Aortic Valve The aortic valve was not well visualized. There is no aortic valve stenosis. Mitral Valve The mitral valve was not well visualized. Pulmonic Valve The pulmonic valve was not well visualized. Tricuspid Valve The tricuspid valve was not well visualized. Tricuspid regurgitation envelope is inadequate for calculation of right ventricular systolic pressure. Great Vessels The aorta was not well visualized. The pulmonary artery was not well visualized. Venous The inferior vena cava was not well visualized. Pericardium/Pleural The pericardium was not well visualized. Measurements 2D Linear Measurements IVSd: 1.27 0.6-0.9/0.6-1.0 cm LVIDd: 5.85 3.9-5.3/4.2-5.9 cm LVIDd Index: 2.05 2.4-3.2/2.2-3.1 cm/m2 LVIDs: 3.54 2.0-3.6 cm LVPWd: 1.10 0.7-1.1 cm LA Diam: 4.40 2.7-3.8/3.0-4.0 cm LAIDs Index: 1.54 1.5-2.3 cm/m2 LV Mass: 369.42 67-162/88-224 g LV Mass Index: 129.62 43-95/49-115 g/m2 LVOT Diam: 2.40 3.0+(-)1.3 cm Mitral Valve MV Pk E: 1.11 MV PK A: 0.64 MV Decel Time: 271.00 E/A: 1.70 E'Lateral: 12.30 E'Medial: 12.80 E/E' Med: 8.70 E/E' Lat: 9.00 PHT: 79.00 MVA PHT: 2.78 Decel Erath: 4.11 Aortic Valve AoV Pk Sancho: 1.30 AoV Mn Sancho: 0.85 AoV VTI: 0.31 AoV Pk Grad: 7.00 Aov Mn Grad: 4.00 PASQUALE Cont.VTI: 4.07 LVOT LVOT Pk Sancho: 1.19 LVOT Mn Sancho: 0.76 LVOT VTI: 0.28 LVOT Pk Grad: 6.00 LVOT Mn Grad: 3.00 LVOT Diam: 2.40 LVOT Area: 4.52 Diastolic Function MV Pk E: 1.11 MV Pk A: 0.64 E/A: 1.70 E'Medial: 12.80 E/E' Med: 8.70 E' Laterial: 12.30 E/E' Lat: 9.00 Tricuspid Valve RA Press: 8.00 Great Vessels Aorta Sinus of Valsalva: 4.00 2.0-3.5 cm Ao Asc: 3.80 2.1-3.4 cm Pulmonary Valve PV Pk Sancho: 1.14 Peak PV Grad: 5.00 Updated in Other Vendor System with Status of Final Ty Lujan MD electronically signed on 08/23/2022 3:02:09 PM with status of Final
== END ==
LOC: HO.CARD 07:42
PROVIDERS: PCP Physician Assistant; Visit Provider Physician Assistant
DX: Z01.818 Encounter for other preprocedural examination (principal); R06.00 Dyspnea, unspecified; R94.31 Abnormal electrocardiogram [ECG] [EKG]
CPT/HCPCS: 93306; Q9957

== ENCOUNTER → 2022-08-22 07:44 | Outpatient (BNV) | payer OTHER, SELFPAY | PROVIDERS: PCP Physician Assistant; Visit Provider Internal Medicine Cardiovascular Disease | DX: I25.10 Atherosclerotic heart disease of native coronary artery without angina pectoris (principal) | CPT/HCPCS: 93306 ==

== ENCOUNTER 2022-08-26 11:06 | Outpatient (AMB) | payer OTHER, SELFPAY ==
--- NOTE | 2022-08-26 11:14 | A.OFFWM_ITS ---
Intake Intake Visit Reasons: VIDEO f/u Allergies No Known Allergies Allergy (Verified 08/19/22 10:10) REPLACED BY [facility] Medical History Dyspnea on exertion Restrictive lung disease Surgical History No pertinent past surgical history Family History Father Colon cancer Mother Heart attack, Onset Age: 48 Social History Housing: House Alcohol intake: current Alcohol intake frequency: a few times a month Alcohol type: beer Patient Tobacco Use Status: Former Tobacco user Tobacco use type: Cigarette Years Smoked: 15 +/- e-Cigarette/Vaping Use: Never Used Second Hand Smoke Exposure: No service: No Current occupational status: unemployed Cognitive needs: No Hearing needs: No Vision needs: Yes Behavioral Health Assessment Weight Management Therapy Therapy Notes Details PT reports been doing well, feeling motivated but still dealing with cravings at least 2 times at week. INTERVENTIONS: Discussed routine, gains/challenges. Worked on realistic goals and what to focus in the short-term and/or everyday. ABC analysis, worked on thought-stopping and relationship in between thoughts/emotions/actions. Provided with different scenarios and exercised to work on thoughts. Provided a mindfulness activity to use when dealing with intrusive thoughts (cravings, desires for food, images of food). Validated and normalized feelings. RESPONSE: active, engaged. PT shared underlying factors for him to develop eating issues and obesity, such as cultural and family values/love expressions foe example: food is love PLAN: Continue meeting every 3-4 weeks. Presenting Concerns Referral Source WMP provider Reason for referral Completion of behavioral health assessment as part of process for weight-loss surgery. Precipitating Event Medical issues. Assessment & Plan Assessment & Plan (1) Binge eating disorder: Code(s): F50.81 - Binge eating disorder (2) Depression: Code(s): F32.A - Depression, unspecified Plan PT will continue receiving support, will f/up in 4 weeks. Telehealth Telehealth Location of provider rendering services: other Location of patient: address on file Patient Identification confirmed using: Name, : Yes Telehealth method: video Patient verbally consented to treatment: Yes Patient verbally consented to billing insurance company: Yes Patient informed of any privacy concerns related to visit: Yes Minutes spent on Phone/Video with Pt.: 45 Coding Level of Care Code Established Pt Tele Psytx 45 mins (69179) Patient Type Established Diagnoses Binge eating disorder F50.81 Depression F32.A Time Spent (min) 45 Comment 11:00-11:45AM
== END 2022-08-26 11:48 | disposition home or self-care (01) ==
LOC: HO.HBST 11:06
PROVIDERS: PCP Physician Assistant; Visit Provider Counselor Mental Health
DX: F50.81 Binge eating disorder (principal); F32.A Depression, unspecified
CPT/HCPCS: 90834

== ENCOUNTER → 2022-08-26 11:06 | Outpatient (BNVA) | payer OTHER, SELFPAY | PROVIDERS: PCP Physician Assistant; Visit Provider Counselor Mental Health ==

== ENCOUNTER 2022-08-28 06:18 | Outpatient (REF) | payer OTHER, SELFPAY ==
[2022-08-28 07:25] LABS: Hematocrit 42.6 % (42.0-52.0); Hemoglobin 13.9 g/dl (14.0-18.0); Mean Corpuscular HGB Conc 32.6 g/dl (31.0-36.0); Mean Corpuscular Hemoglobin 29.5 pg (27.0-33.0); Mean Corpuscular Volume 90.4 fL (80.0-98.0); Mean Platelet Volume 10.5 fL (9.4-12.4); Platelet Count 261 X10*3/uL (160-400); Red Blood Count 4.71 X10*6/uL (4.60-5.80); Red Cell Distribution Width 12.9 % (11.0-16.0); White Blood Count 8.2 X10*3/uL (4.8-10.8)
[2022-08-28 08:09] LABS: Creatinine Urine 157.61 mg/dL; Microalbum/Creatinine Ratio Ur 4.4 ug/mg cr
[2022-08-28 08:14] LABS: Alanine Aminotransferase 20 U/L (0-40); Albumin Level 4.2 g/dL (3.5-5.0); Alkaline Phosphatase 74 U/L (39-117); Anion Gap 12 (12-20); Aspartate Amino Transferase 21 U/L (5-37); Bilirubin Total 0.5 mg/dL (0.0-1.0); Blood Urea Nitrogen 16 mg/dL (9-16); Calcium 9.9 mg/dL (8.4-10.2); Carbon Dioxide 27 mmol/L (22-29); Chloride 102 mmol/L (96-108); Cholesterol 157 mg/dL; Estimated Glomerular Filt Rate > 60; Glucose Fasting 109 mg/dL (60-99); HDL Cholesterol 33 mg/dL; LDL Cholesterol Calculated 101 mg/dl; Potassium 4.3 mmol/L (3.3-5.1); Sodium 137 mmol/L (135-145); Total Protein 7.9 g/dL (6.5-8.0); Triglycerides 116 mg/dL
[2022-08-28 08:25] LABS: Prostate Specific Antigen Scr 0.12 ng/mL (<0.05-4.0)
[2022-08-28 08:30] LABS: TSH reflex Free T4 3.06 uIU/mL (0.32-4.0)
[2022-08-28 08:38] LABS: Folate 9.3 ng/mL (> or = 4.0); Vitamin B12 347 pg/mL (200-900)
== END 2022-08-28 06:19 | disposition home or self-care (01) ==
LOC: HO.LAB 06:18
PROVIDERS: Physician Assistant; PCP Physician Assistant; Visit Provider Physician Assistant
DX: Z01.818 Encounter for other preprocedural examination (principal); Z12.5 Encounter for screening for malignant neoplasm of prostate; E66.01 Morbid (severe) obesity due to excess calories; I10 Essential (primary) hypertension; R06.00 Dyspnea, unspecified; R94.31 Abnormal electrocardiogram [ECG] [EKG]; G47.33 Obstructive sleep apnea (adult) (pediatric); Z99.89 Dependence on other enabling machines and devices
CPT/HCPCS: 36415; 80053; 80061; 82043; 82607; 82746; 84153; 84443; 85027

== ENCOUNTER 2022-09-02 08:22 | Outpatient (AMB) | payer OTHER, SELFPAY ==
[2022-09-02 08:30] VITALS: BP 134/62; PULSE 58; O2SAT 97; BMI 70.1
--- NOTE | 2022-09-02 08:30 | A.OFFPC_ITS ---
Vital Signs 09/02/22 08:30 Height 5 ft 7 in Weight 447 lb 8.614 oz BMI 70.1 BP 134/62 Blood Pressure Location Lt brachial Position Sitting Pulse 58 Pulse Source Pulse Oximeter Pulse Oximetry (%) 97 Oxygen Delivery Method Room Air Intake Visit Reasons: f/u HTN Allergies No Known Allergies Allergy (Verified 09/02/22 08:50) Medication List - Last Reconciled 09/02/22 by Delmer Wilkinson PA-C cetirizine 10 mg PO DAILY cholecalciferol (vitamin D3) 50 mcg PO DAILY fluticasone propionate 50 mcg/actuation 1 spray intranasal DAILY PRN hydrochlorothiazide 25 mg PO DAILY iron,carbonyl-vitamin C 65 mg iron- 125 mg (Vitron-C) 1 tab PO BEDTIME lisinopril 20 mg PO DAILY metoprolol succinate ER 50 mg PO DAILY sennosides (Senna Lax) 17.2 mg (2 x 8.6 mg) PO BEDTIME PRN 30 days sumatriptan succinate 25 mg PO BID PRN tizanidine 4 mg PO TID PRN vitamin A palmitate 6,000 mcg (2 x 3,000 mcg (10,000 unit)) PO DAILY 2 weeks Tobacco use date assessed: 05/13/22 Dental Screening Dental Screen Date: 09/02/22 Did you have a dental visit in the last 12 months?: Yes Did you have a dental problem in the last 6 months where you did not have access to dental care?: No Was dental information given to patient?: Patient has dentist HPI f/u HTN HPI Details Wally is a 46 year old male here today for a follow-up visit.? . Pateint has a pmhx significant for Morbid obesity, Sleep apnea, chronic knee/ lumbar spine pain, hypertension, major depressive disorder, urinary incontinence. Concern--> reports injuring his right calf while visiting a friend in [place]. She reports having acute pain in his right calf any noting a popping sound during the event. He was checked out at a local ER and advised to rest, ice and use NSAIDs. He still has pain over his medial aspect of his right calf and is willing to try physical therapy. ? .. ? Morbid obesity:? Has been walking daily and has lost weight.? Has been reestablished with [facility] weight management program and anticipates surgery. Has had cardiac stress testing which was normal. Has cardiology follow up for cardiac clearance. ? BRET: Using CPAP on occasion nightly? , is followed by Dr. Zhou.? Headaches since resolved since using CPAP nightly. ? .. ? HTN:? Blood pressure readings today in office slightly elevated.? He does monitor his blood pressures at home and does report normal readings.? Continues on lisinopril and hydrochlorothiazide which have been controlling his blood pressure well.? Denies any vision issues, chest discomforts or headaches.? Laboratory Tests 03/15/20 05/01/21 05/01/21 09:20 11:13 11:13 RBC 4.49 L 4.58 L Hgb 13.2 L 13.5 L Creatinine 0.86 Fasting Glucose 97 Hemoglobin A1c % Cholesterol 162 LDL Cholesterol, C alc 75 PSA Screen 0.09 Vitamin B12 TSH 1.92 05/01/21 08/28/22 08/28/22 11:13 06:45 06:45 RBC 4.71 Hgb Creatinine Fasting Glucose Hemoglobin A1c % 6.0 Cholesterol LDL Cholesterol, C alc PSA Screen Vitamin B12 347 TSH 08/28/22 06:45 RBC Hgb Creatinine 0.82 Fasting Glucose 109 H Hemoglobin A1c % Cholesterol 157 LDL Cholesterol, C alc PSA Screen Vitamin B12 TSH PFS Medical History Dyspnea on exertion Restrictive lung disease Surgical History No pertinent past surgical history Family History (Updated 09/02/22 @ 09:03 by Delmer Wilkinson PA-C) Father Colon cancer Mother Heart attack, Onset Age: 48 Son Leukemia Social History Housing: House Alcohol intake: current Alcohol intake frequency: a few times a month Alcohol type: beer Patient Tobacco Use Status: Former Tobacco user Tobacco use type: Cigarette Years Smoked: 15 +/- e-Cigarette/Vaping Use: Never Used Second Hand Smoke Exposure: No service: No Current occupational status: unemployed Cognitive needs: No Hearing needs: No Vision needs: Yes Questionnaire PHQ-9 Over the last 2 weeks, how often have you been bothered by any of the following problems? 1. Little interest or pleasure in doing things: not at all 2. Feeling down, depressed, or hopeless: not at all 3. Trouble falling or staying asleep, or sleeping too much: not at all 4. Feeling tired or having little energy: not at all 5. Poor appetite or overeating: not at all 6. Feeling bad about yourself - or that you are a failure or have let yourself or your family down: not at all 7. Trouble concentrating on things, such as reading the newspaper or watching television: not at all 8. Moving or speaking so slowly that other people could have noticed. Or the opposite - being so fidgety or restless that you have been moving around a lot more than usual: not at all 9. Thoughts that you would be better off or of hurting yourself in some way: not at all Total score: 0 Depression Screening Interpretation: Negative 56539 - PHQ-9 Billing: Yes Source: Developed by Drs. Christopher Vazquez, Majo Blanca, Compa No and colleagues, with an educational kassidy from [employer]. Thrive Questionnaire Date Thrive assessed: 05/13/22 AUDIT C Alcohol Use Questionnaire (AUDIT-C) 1. How often do you have a drink containing alcohol?: Monthly or less 2. How many drinks containing alcohol do you have on a typical day when you are drinking?: 1 or 2 3. How often do you have six or more drinks on one occasion?: Never Total Score: 1 HEAVENLY-7 AMB Questionnaire HEAVENLY-7 Date HEAVENLY - 7 assessed: 05/13/22 Source: Developed by Drs. Christopher Vazquez, Compa Hall and colleagues, with an educational kassidy from [employer]. Review of Systems Const Denies headache(s) Eyes Denies loss of vision ENT Denies vertigo, Denies dizziness, Denies headache(s) and Denies sore throat Card Denies chest pain, Denies leg edema and Denies lightheadedness Resp Denies cough, Denies hemoptysis and Denies wheezing GI Denies abdominal pain, Denies melena, Denies constipation, Denies diarrhea and Denies vomiting Denies dysuria, Denies urinary frequency and Denies urinary urgency Musc Denies arthralgias, Denies joint swelling, Denies numbness and Denies tingling Neuro Denies Abnormal speech present, Denies behavioral changes, Denies vertigo, Denies dizziness, Denies headache(s), Denies loss of vision, Denies memory loss, Denies numbness and Denies tingling Psych Denies anxiety, Denies behavioral changes, Denies depression, Denies memory loss and Denies panic attacks Kyree/Lymph Denies easy bleeding and Denies easy bruising Aller/Immun Denies wheezing Physical exam (Primary Care) Vital Signs: Last Vital Signs Pulse 58 09/02/22 08:30 BP 134/62 09/02/22 08:30 Pulse Ox 97 09/02/22 08:30 Oxygen Delivery Method Room Air 09/02/22 08:30 BMI result Body Mass Index 70.1 BMI Assessment/Plan discussion: High Tobacco/Smoking Status: Tobacco use Status Tobacco use date assessed 05/13/22 09/02/22 08:34 Patient Tobacco Use Status Former Tobacco user 09/02/22 08:34 Tobacco use type Cigarette 09/02/22 08:34 e-Cigarette/Vaping Use Never Used 09/02/22 08:34 PHQ-9: PHQ-9 Score PHQ-9: Total score 0 09/02/22 08:34 Depression Screening Interpretation: Negative Thrive Assessment: Date of Thrive Assessment Date Thrive assessed 05/13/22 09/02/22 08:34 Const Other: Morbidly obese General: no acute distress, alert and awake Nutritional Appearance: well nourished Orientation/consciousness: oriented to person, oriented to place and oriented to time HENMT Ears: TM's normal bilaterally General nose exam: Normal nasal mucous membranes and turbinates present Eyes Conjunctivae: conjunctivae normal Sclerae: sclerae normal Pupils: Equal, round and reactive pupils present Neck Neck: Yes no lymphadenopathy and Yes no JVD Thyroid: Thyroid normal Carotids: no bruits Resp Effort & Inspection: normal respiratory effort and not tachypneic Auscultation: no crackles, no rales, no rhonchi and no wheezes Cardio Rate: regular rate Rhythm: regular rhythm Heart sounds: no murmurs and normal S1 and S2 GI Palpation (GI): Soft to palpation, nontender, no hepatomegaly and no splenomegaly Auscultation: normal bowel sounds Skin General skin exam: no rashes or lesions noted and dry skin Neuro General: oriented to person, oriented to place and oriented to time Cranial nerves: Yes Equal, round and reactive pupils present Speech: No Abnormal speech present Gait exam (Neuro): Normal gait present Motor exam (neuro): no tremor noted Extrem Right upper extremity: full ROM Left upper extremity: full ROM Right lower extremity: full ROM; no edema Left lower extremity: full ROM; no edema Psych Mental Status: mental status grossly normal Speech and movement: Normal speech and movement present Affect: normal affect Attitude: cooperative Thought process: Normal thought process present Assessment and Plan Assessment & Plan (1) Morbid obesity: Code(s): E66.01 - Morbid (severe) obesity due to excess calories Plan: Patient continues to follow [employer] weight management program. Has lost 15 lb since last office visit. Has been more physically active and now on new bariatric diet. He anticipates surgery- needs cardiology clearance. Most recent stress test was negative (2) HTN (hypertension): Comment: Stable Code(s): I10 - Essential (primary) hypertension Qualifiers: Hypertension type: essential hypertension Qualified Code(s): I10 - Essential (primary) hypertension Plan: Patient's blood pressure acceptable today in office, will continue his current dose of antihypertensive medication with goal blood pressure to be below 140/90 (3) BRET on CPAP: Comment: BRET is well treated with the application of CPAP, pressure of 16 cm. using Nasal Pillows HE IS VERY COMPLIANT AND BENEFITING.. Code(s): G47.33 - Obstructive sleep apnea (adult) (pediatric); Z99.89 - Dependence on other enabling machines and devices Plan: Continues to be compliant with his CPAP machine on a nightly basis. (4) Strain of right calf muscle: Code(s): S86.811A - Strain of other muscle(s) and tendon(s) at lower leg level, right leg, initial encounter Plan: Patient's right calf pain most consistent with a strain of the right gastro knee Ms. Muscle. Will likely get better over the next few weeks. Advised on continuing conservative treatment. He would benefit from physical therapy. Coding Level of Care Code Est Pt Level 4 (76276) Diagnoses Morbid obesity E66.01 HTN (hypertension) I10 Hypertension type: essential hypertension BRET on CPAP G47.33; Z99.89 Strain of right calf muscle S86.811A
== END 2022-09-02 09:10 | disposition home or self-care (01) ==
PROVIDERS: PCP Physician Assistant; Visit Provider Physician Assistant
DX: E66.01 Morbid (severe) obesity due to excess calories (principal); I10 Essential (primary) hypertension; Z68.45 Body mass index [BMI] 70 or greater, adult; G47.33 Obstructive sleep apnea (adult) (pediatric); Z99.89 Dependence on other enabling machines and devices; S86.811A Strain of other muscle(s) and tendon(s) at lower leg level, right leg, initial encounter
CPT/HCPCS: 99214

== ENCOUNTER 2022-09-12 08:55 | Outpatient (AMB) | payer OTHER, SELFPAY ==
--- NOTE | 2022-09-12 08:44 | MHC.OFFVISWM ---
Intake VS Expanded 09/12/22 08:45 Height 5 ft 7 in Weight 432 lb BMI 67.7 Intake Visit Reasons: (tv) F/U SWL Allergies No Known Allergies Allergy (Verified 09/02/22 08:50) HPI HPI Comments History of Present Illness Details SWL follow up. [employer] weight 360.2 lbs, TBWL is 28.2 lbs or 6.1%. Had calf pain, seen in ED, and did not exercise for a few weeks. Exercise - restarted -- walks twice a day 1.5 bid, 5d/ week. Meal plan: 4 per day --PP shake 6am - shake 11 am - shake 4pm - dinner 6pm - shake 8pm- shake may have a bar in evening Pre op work up completed as follows: SW[facility] classes - appts ? - will be seen again, Renetta? RD appts - follow up on 10/02 H pylori - negative Labs, - anemia vit a and D ECG - normal, cardiac cath 2.5 years ago Stress test- Impression: ? 1.? Myocardial perfusion imaging study shows equivocal for small area of inferoapical ischemia 2.? Gated LVEF is not obtained 3. Transient ischemic dilatation not present ? EKG is nondiagnostic for ischemia Will try again to have him seen by [facility] cardiology sooner than November for surgicla clearans.? ULS and UGI - September 23 [facility] Medical History Dyspnea on exertion Restrictive lung disease Surgical History No pertinent past surgical history Family History (Updated 09/02/22 @ 09:03 by Delmer Wilkinson PA-C) Father Colon cancer Mother Heart attack, Onset Age: 48 Son Leukemia Social History Housing: House Alcohol intake: current Alcohol intake frequency: a few times a month Alcohol type: beer Patient Tobacco Use Status: Former Tobacco user Tobacco use type: Cigarette Years Smoked: 15 +/- e-Cigarette/Vaping Use: Never Used Second Hand Smoke Exposure: No service: No Current occupational status: unemployed Cognitive needs: No Hearing needs: No Vision needs: Yes Physical Exam Vital Signs: BMI result Body Mass Index 67.7 Assessment & Plan Assessment & Plan (1) Morbid obesity: Code(s): E66.01 - Morbid (severe) obesity due to excess calories Plan: Pt doing very well with 28.2 lbs or 6% TBWL. Has restarted exercise and will now start TBP videos 3d/ week and walk 4d/ week. Only chnge to meal plan is timig. Now have a shake every 3 hours starting at 6am, and meal at 4pm. Bar in evening. All upcoming appts reviewed with laila. I encouraged him to text me his weekly weights and questions for more help. Patient is still morbidly obese and is not considered stable at this time. I spent 25 minutes in total speaking with the patient via video conference counseling , reviewing records and charting in patients chart. . Telehealth Telehealth Location of provider rendering services: practice address Location of patient: address on file Patient Identification confirmed using: Name, : Yes Telehealth method: video Patient verbally consented to treatment: Yes Patient verbally consented to billing insurance company: Yes Patient informed of any privacy concerns related to visit: Yes Coding Level of Care Code Tele Est Pt Level 4 (95099) Diagnoses Morbid obesity E66.01
[2022-09-12 08:45] VITALS: BMI 67.7
== END 2022-09-12 09:01 | disposition home or self-care (01) ==
LOC: HO.HBS 08:55
PROVIDERS: PCP Physician Assistant; Visit Provider Physician Assistant
DX: E66.01 Morbid (severe) obesity due to excess calories (principal); Z68.44 Body mass index [BMI] 60.0-69.9, adult
CPT/HCPCS: 99214

== ENCOUNTER → 2022-09-12 08:55 | Outpatient (BNVA) | payer OTHER, SELFPAY | PROVIDERS: PCP Physician Assistant; Visit Provider Physician Assistant ==

== ENCOUNTER 2022-09-23 08:52 | Outpatient (REF) | payer OTHER, SELFPAY ==
--- NOTE | ~2022-09-23 | XR_ITS ---
EXAMINATION: XR CHEST CLINICAL INFORMATION: Encounter for preprocedural exam COMPARISON: 01/25/2019 TECHNIQUE: 2 views of the chest were obtained. FINDINGS: Heart size normal. No focal consolidation to suggest pneumonia. No pleural effusion. Degenerative changes in the thoracic spine. There is no gross pneumothorax. Low lung volumes. Visualization limited due to body habitus. XR/XR chest 2V IMPRESSION: No focal consolidation to suggest pneumonia. Low lung volumes. Visualization limited due to body habitus.
--- NOTE | ~2022-09-23 | FL_ITS ---
EXAMINATION: XR FLUOROSCOPY UPPER GI WITH AIR CLINICAL INFORMATION: Obesity. Preop. COMPARISON: None available. TECHNIQUE: Upper GI was performed using thin and thick barium and effervescent granules. FINDINGS: Esophageal motility is normal. No hiatal hernia or reflux is seen. The stomach and duodenum are normal. No fold thickening, mass, ulcer or stricture is seen. FLUOROSCOPY TIME: 0.6 minutes DOSE AREA PRODUCT: 10 noland per centimeter squared. 19 saved fluoroscopic images. FL/FL upper GI w air IMPRESSION: Unremarkable examination.
--- NOTE | ~2022-09-23 | US_ITS ---
EXAMINATION: US COMPLETE ABDOMEN WITH LIVER ELASTOGRAPHY CLINICAL INFORMATION: COMPARISON: None available. TECHNIQUE: Real-time imaging of the abdominal viscera. Noninvasive ultrasound liver fibrosis assessment is performed using Armando ElastPQ point quantification shear wave elastography (2D-SWE) with a C5-2 MHz transducer. Multiple elastography samples are obtained. FINDINGS: PANCREAS: Limited. The visualized pancreatic head and proximal body are normal in appearance. The remainder of the pancreas is obscured from visualization by the overlying bowel gas. ABDOMINAL AORTA: The proximal segment is normal in caliber. The mid and distal segments are obscured by overlapping bowel gas. INFERIOR VENA CAVA: Visualized portions are normal. LIVER: The liver demonstrates normal contour and and generally increased echogenicity. No focal lesion or intrahepatic biliary duct dilatation. The right lobe measures 21.0 cm in length. The left lobe measures 16.5 cm in length. Portal flow is towards the liver (hepatopetal). Shear wave liver elastography median stiffness is 1.97 m/s (reference: normal median stiffness is 1.3 m/s or less). IQR/median stiffness to assess sampling precision is 0.26 (reference: good quality data set is IQR/median stiffness of 0.15 or less). GALLBLADDER: Normal. The gallbladder is physiologically distended without evidence of stones, sludge, polyps, wall thickening or pericholecystic fluid. COMMON BILE DUCT: Normal in caliber measuring 0.4 cm in diameter. RIGHT KIDNEY: Normal. No hydronephrosis. No renal calculi or focal parenchymal lesions. The kidney measures 12.8 cm in maximum dimension. LEFT KIDNEY: Normal. No hydronephrosis. No renal calculi or focal parenchymal lesions. The kidney measures 13.0 cm in maximum dimension. SPLEEN: Normal. The spleen measures 11.3 cm in maximum dimension. FREE FLUID: None. US/US abdomen comp w elastography IMPRESSION: 1. There is generalized increase in hepatic echotexture, consistent with fatty infiltration or hepatocellular disease. Please correlate clinically. No focal hepatic mass or intrahepatic biliary dilatation is seen. 2. There is hepatomegaly. 3. Liver elastography: Although measurements are suggestive of compensated advanced chronic liver disease, there is statistical variability of the sampling which decreases accuracy. 4. Technically limited ultrasound examination of the pancreas and abdominal great vessels. REFERENCE: Society of Radiologists in Ultrasound Liver Stiffness Thresholds (2020): LIVER STIFFNESS THRESHOLDS: *Liver Stiffness equal or less than 1.3 m/s: High probability of being normal. *Liver Stiffness less than 1.7 m/s: In the absence of other known clinical signs, rules out compensated advanced chronic liver disease. *Liver Stiffness 1.7-2.1 m/s: Suggestive of compensated advanced chronic liver disease but need further test for confirmation. *Liver Stiffness over 2.1 m/s: Rules in compensated advanced chronic liver disease. *Liver Stiffness over 2.4 m/s: Suggestive of clinically significant portal hypertension. QUALITY OF DATA SET: *IQR/Median value equal or less than 0.15 implies a quality data set. *IQR/Median value over 0.15 implies a poor quality data set. SIGNIFICANT CHANGE FROM PRIOR EXAM: Significant change if liver stiffness measurement is 10% or greater from prior exam. OTHER CONSIDERATIONS: The stage of liver fibrosis may be overestimated in the setting of acute hepatitis, liver inflammation, elevated liver function tests, hepatic vascular congestion, obstructive cholestasis, non-fasting state, and infiltrative diseases such as amyloidosis and lymphoma. In some patients with NAFLD, the liver stiffness thresholds for compensated advanced chronic liver disease may be lower. In causes other than viral hepatitis and NAFLD, liver stiffness thresholds are not well established.
== END 2022-09-23 08:53 | disposition home or self-care (01) ==
LOC: HO.US 08:52
PROVIDERS: PCP Physician Assistant; Visit Provider Physician Assistant
DX: Z01.818 Encounter for other preprocedural examination (principal); E66.01 Morbid (severe) obesity due to excess calories; I10 Essential (primary) hypertension; R06.00 Dyspnea, unspecified; R94.31 Abnormal electrocardiogram [ECG] [EKG]
CPT/HCPCS: 71046; 74246; 76705; 76981

== ENCOUNTER → 2022-09-23 08:55 | Outpatient (BNV) | payer OTHER, SELFPAY | PROVIDERS: PCP Physician Assistant; Visit Provider Radiology Diagnostic Radiology | DX: Z01.818 Encounter for other preprocedural examination (principal) | CPT/HCPCS: 74246 ==

== ENCOUNTER 2022-09-23 11:00 | Outpatient (AMB) | payer OTHER, SELFPAY ==
--- NOTE | 2022-09-23 11:13 | A.OFFWM_ITS ---
Intake Intake Visit Reasons: VIDEO f/u Allergies No Known Allergies Allergy (Verified 10/04/22 08:35) [facility] Medical History Dyspnea on exertion Restrictive lung disease Surgical History No pertinent past surgical history Family History Father Colon cancer Mother Heart attack, Onset Age: 48 Son Leukemia Social History Housing: House Alcohol intake: current Alcohol intake frequency: a few times a month Alcohol type: beer Patient Tobacco Use Status: Former Tobacco user Tobacco use type: Cigarette Years Smoked: 15 +/- e-Cigarette/Vaping Use: Never Used Second Hand Smoke Exposure: No service: No Current occupational status: unemployed Cognitive needs: No Hearing needs: No Vision needs: Yes Behavioral Health Assessment Weight Management Therapy Therapy Notes Details PT presents for a follow up. PT reports he's been dealing with family concerns as his son was diagnosed with cancer. INTERVENTION:Processed ongoing sources of stress, validated and normalized feelings. Talk therapy. Provided support with coping strategies. Psychoeducation about the use of grounding techniques. RESPONSE: PT was open and active in session. Seemed positive and stated been engaging in outdoor activities as stress-management approach. PLAN: F/up monthly. Presenting Concerns Referral Source [facility]MP provider Reason for referral Completion of behavioral health assessment as part of process for weight-loss surgery. PT will continue receiving counseling support as part of [facility] treatment/support. Precipitating Event Medical issues. Assessment & Plan Assessment & Plan (1) Binge eating disorder: Code(s): F50.81 - Binge eating disorder (2) Depression: Code(s): F32.A - Depression, unspecified Qualifiers: Depression Type: major depressive disorder Major depression recurrence: recurrent Major depression episode severity: unspecified Plan PT will continue receiving support, will f/up in 4 weeks. Telehealth Telehealth Location of provider rendering services: other (Home office. [place], [place] Location of patient: address on file Patient Identification confirmed using: Name, : Yes Telehealth method: video Patient verbally consented to treatment: Yes Patient verbally consented to billing insurance company: Yes Patient informed of any privacy concerns related to visit: Yes Minutes spent on Phone/Video with Pt.: 45 Coding Level of Care Code Established Pt Tele Psytx 45 mins (58072) Patient Type Established Diagnoses Binge eating disorder F50.81 Depression F32.A Depression Type: major depressive disorder Major depression recurrence: recurrent Major depression episode severity: unspecified
== END 2022-09-23 12:54 | disposition home or self-care (01) ==
LOC: HO.HBST 11:34
PROVIDERS: PCP Physician Assistant; Visit Provider Counselor Mental Health
DX: F50.81 Binge eating disorder (principal); F32.A Depression, unspecified
CPT/HCPCS: 90834

== ENCOUNTER → 2022-09-25 09:56 | Outpatient (BNVA) | payer OTHER, SELFPAY | PROVIDERS: PCP Physician Assistant; Referring Provider Physician Assistant; Visit Provider Internal Medicine Cardiovascular Disease | DX: Z01.810 Encounter for preprocedural cardiovascular examination (principal); I10 Essential (primary) hypertension; E66.01 Morbid (severe) obesity due to excess calories; R06.00 Dyspnea, unspecified; Z68.44 Body mass index [BMI] 60.0-69.9, adult | CPT/HCPCS: 99212 ==

== ENCOUNTER 2022-09-25 13:41 | Outpatient (AMB) | payer OTHER, SELFPAY ==
--- NOTE | 2022-09-25 09:58 | A.OFFVIS_ITS ---
Intake Intake Visit Reasons: 1 year follow up Allergies No Known Allergies Allergy (Verified 09/02/22 08:50) [facility] Medical History Dyspnea on exertion Restrictive lung disease Surgical History No pertinent past surgical history Family History (Updated 09/02/22 @ 09:03 by Dlemer Wilkinson PA-C) Father Colon cancer Mother Heart attack, Onset Age: 48 Son Leukemia Social History Housing: House Alcohol intake: current Alcohol intake frequency: a few times a month Alcohol type: beer Patient Tobacco Use Status: Former Tobacco user Tobacco use type: Cigarette Years Smoked: 15 +/- e-Cigarette/Vaping Use: Never Used Second Hand Smoke Exposure: No service: No Current occupational status: unemployed Cognitive needs: No Hearing needs: No Vision needs: Yes Coding Diagnoses
[2022-09-25 13:42] VITALS: BP 104/68; PULSE 74; BMI 68.9
--- NOTE | 2022-09-25 13:42 | A.OFFVIS_ITS ---
Intake Vital Signs 09/25/22 13:42 Height 5 ft 7 in Weight 440 lb 0.682 oz BMI 68.9 BP 104/68 Blood Pressure Location Lt brachial Position Sitting Pulse 74 Pulse Source Pulse Oximeter Intake Visit Reasons: 1 year follow up Intake Note: 1 year follow up. 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 Accompanied by: Self / Same As Patient Allergies No Known Allergies Allergy (Verified 09/25/22 13:45) Medication List - Last Reconciled 09/25/22 by Jun Romero MD cetirizine 10 mg PO DAILY cholecalciferol (vitamin D3) 50 mcg PO DAILY fluticasone propionate 50 mcg/actuation 1 spray intranasal DAILY PRN hydrochlorothiazide 25 mg PO DAILY iron,carbonyl-vitamin C 65 mg iron- 125 mg (Vitron-C) 1 tab PO BEDTIME lisinopril 20 mg PO DAILY metoprolol succinate ER 50 mg PO DAILY sennosides (Senna Lax) 17.2 mg (2 x 8.6 mg) PO BEDTIME PRN 30 days sumatriptan succinate 25 mg PO BID PRN tizanidine 4 mg PO TID PRN vitamin A palmitate 6,000 mcg (2 x 3,000 mcg (10,000 unit)) PO DAILY 2 weeks HPI HPI Comments History of Present Illness Details Pleasant 46-year-old gentleman with morbid obesity here for follow-up. Blood pressure control is good. He is denying any chest discomfort. He is saying he is back in to exercise and has been regularly exercising and has lost some weight. Denying any worsening shortness of breath. Overall clinically stable. He previously had exercise stress testing which was abnormal and underwent cardiac catheterization which showed no coronary artery disease. 09/25/2022: He is here for perioperative cardiovascular risk assessment. He previously was following with bariatric surgery but developed depression and decided not to undergo bariatric surgery. He is now returning and has been following closely with weight management program. He has lost a lot of weight with diet and exercise this point. Denying any chest discomfort. Blood pressure control is also good at this point. He is motivated what weight loss and is seriously considering bariatric surgery at this point. [facility] Medical History Dyspnea on exertion Restrictive lung disease Surgical History No pertinent past surgical history Family History Father Colon cancer Mother Heart attack, Onset Age: 48 Son Leukemia Social History Housing: House Alcohol intake: current Alcohol intake frequency: a few times a month Alcohol type: beer Patient Tobacco Use Status: Former Tobacco user Tobacco use type: Cigarette Years Smoked: 15 +/- e-Cigarette/Vaping Use: Never Used Second Hand Smoke Exposure: No service: No Current occupational status: unemployed Cognitive needs: No Hearing needs: No Vision needs: Yes Review of Systems Const Denies weakness ENT Denies dizziness Card Denies chest pain, Denies chest pain with activity, Denies syncope, Denies rapid heart rate, Denies pedal edema, Denies edema, Denies leg edema, Denies lightheadedness, Denies palpitations, Denies dyspnea, Denies dyspnea on exertion and Denies orthopnea Resp Denies cough, Denies dyspnea and Denies dyspnea on exertion GI Denies hematochezia and Denies change in stool character Musc Denies abnormal gait, Denies muscle cramps, Denies muscle weakness, Denies numbness, Denies radiating pain into limb and Denies tingling Neuro Denies abnormal gait, Denies dizziness, Denies syncope, Denies numbness, Denies tingling and Denies weakness Endo Denies palpitations Physical Exam Vital Signs: Last Vital Signs Pulse 74 09/25/22 13:42 BP 104/68 09/25/22 13:42 BMI result Body Mass Index 68.9 GENERAL APPEARANCE: in no acute distress, morbidly obese. NECK/THYROID: no carotid bruit, no jugular venous distention. SKIN: no suspicious lesions, warm and dry. HEART: no murmurs, regular rate and rhythm, S1, S2 normal. LUNGS: clear to auscultation bilaterally. ABDOMEN: normal, bowel sounds present, soft, nontender, distended. EXTREMITIES: no clubbing, cyanosis. Trace edema. PERIPHERAL PULSES: equal. NEUROLOGIC: nonfocal, alert and oriented. PSYCH: mood/affect full range. Assessment & Plan Assessment & Plan (1) HTN (hypertension): Comment: Stable Code(s): I10 - Essential (primary) hypertension Qualifiers: Hypertension type: essential hypertension Qualified Code(s): I10 - Essential (primary) hypertension (2) Morbid obesity: Code(s): E66.01 - Morbid (severe) obesity due to excess calories (3) Dyspnea on exertion: Comment: Stable Code(s): R06.00 - Dyspnea, unspecified (4) Preop cardiovascular exam: Code(s): Z01.810 - Encounter for preprocedural cardiovascular examination Plan Pleasant 38 year gentleman is here for follow-up. He has background of hypertension. He is on hydrochlorothiazide, metoprolol and lisinopril for hypertension. Blood pressure control is good. He is also written for sumatriptan which is not a good drug to use with hypertension as it can cause elevated blood pressures. He is considering bariatric surgery and seems to be motivated about it. He has been exercising and losing weight. Denying any significant issues. Previous cardiac catheterization did not show any coronary disease. I think he is low to intermediate risk for perioperative cardiovascular complications. Should proceed with bariatric surgery as planned. Thank you for allowing me to participate in the care of your patient. Please feel free to contact me if you have any questions. Coding Level of Care Code Est Pt Level 4 (08179) Diagnoses HTN (hypertension) I10 Hypertension type: essential hypertension Morbid obesity E66.01 Dyspnea on exertion R06.00 Preop cardiovascular exam Z01.810
== END 2022-09-25 14:01 | disposition home or self-care (01) ==
PROVIDERS: PCP Physician Assistant; Referring Provider Physician Assistant; Visit Provider Internal Medicine Cardiovascular Disease
DX: I10 Essential (primary) hypertension (principal); E66.01 Morbid (severe) obesity due to excess calories; R06.00 Dyspnea, unspecified; Z01.810 Encounter for preprocedural cardiovascular examination
CPT/HCPCS: 99214

== ENCOUNTER 2022-10-02 08:43 | Outpatient (AMB) | payer OTHER, SELFPAY ==
--- NOTE | 2022-10-02 08:33 | MHC.AMNUTRGE ---
Intake Intake Visit Reasons: VIDEO F/U SWL Video Software Engineer Required: No Allergies No Known Allergies Allergy (Verified 09/25/22 13:45) HPI Nutrition Presentation Details Re-establishing Reason for consult elevated BMI Diet Assmnt Details reports he still gets cravings, but tries to make healthier alternatives. For example made cauliflower fried rice with egg and fish as a substitute for serbian food. Using [employer] shakes His son was dx with cancer (Leukemia?) - has been traveling back and forth to [place] . I had to eat fried food sometimes we discussed trying to plan ahead and finding other non-fried options. [facility]- recommended getting them shipped to his sons house. Walked the whole [employer] (over 4 miles) 1 hour in 45 minutes! Last appt was only able to walk a mile before feeling maxed out. Is also doing upper body weight strength based workouts. completed online classes: last appt finished all classes and scored a 12% on nutrition class - asked him to retake it. He did retake it and felt he understood the material better this time. I left him a folder of educational handouts - he confirms he received it. Highest weight (pounds) 510 (right before coming to program, lost 50 pounds on his own through diet) Dietary counseling reduction Diagnosis Nutrition problem #1 overweight/obesity As related to (etiology) #1 excess energy intake and physical inactivity As evidenced by (sign/symptom) #1 high BMI Monitoring/Goals Nutrition problem monitoring total energy intake, level of knowledge/skill, total PRO intake, total CHO intake and weight Outcome progress progressing Learning/Education Readiness to learn good Stages of change action Educational materials provided Yes Most Recent Diabetes Results: Microalb/Creat Ratio 4.4 ug/mg cr 08/28/22 Cholesterol 157 mg/dL 08/28/22 HDL Cholesterol 33 mg/dL 08/28/22 Triglycerides 116 mg/dL 08/28/22 Creatinine 0.82 mg/dL (0.5-1.4) 08/28/22 Blood Urea Nitrogen 16 mg/dL (9-16) 08/28/22 Sodium 137 mmol/L (135-145) 08/28/22 Potassium 4.3 mmol/L (3.3-5.1) 08/28/22 Chloride 102 mmol/L (96-108) 08/28/22 Carbon Dioxide 27 mmol/L (22-29) 08/28/22 Calcium 9.9 mg/dL (8.4-10.2) 08/28/22 AST 21 U/L (5-37) 08/28/22 ALT 20 U/L (0-40) 08/28/22 Total Protein 7.9 g/dL (6.5-8.0) 08/28/22 Albumin 4.2 g/dL (3.5-5.0) 08/28/[address] [facility] Medical History Dyspnea on exertion Restrictive lung disease Surgical History No pertinent past surgical history Family History Father Colon cancer Mother Heart attack, Onset Age: 48 Son Leukemia Social History Housing: House Alcohol intake: current Alcohol intake frequency: a few times a month Alcohol type: beer Patient Tobacco Use Status: Former Tobacco user Tobacco use type: Cigarette Years Smoked: 15 +/- e-Cigarette/Vaping Use: Never Used Second Hand Smoke Exposure: No service: No Current occupational status: unemployed Cognitive needs: No Hearing needs: No Vision needs: Yes Assessment & Plan Assessment & Plan (1) Morbid obesity: Code(s): E66.01 - Morbid (severe) obesity due to excess calories Patient Instructions: Doing great and will be an excellent candidate when ready. Patient is cleared from a nutrition standpoint for bariatric surgery. Educational requirements have been completed. Encouraged communication with office as needed and reminded of all upcoming appts. Telehealth Telehealth Location of provider rendering services: practice address Location of patient: other (car, not driving . [facility]) Patient Identification confirmed using: Name, : Yes Telehealth method: video Patient verbally consented to treatment: Yes Patient verbally consented to billing insurance company: Yes Patient informed of any privacy concerns related to visit: Yes Minutes spent on Phone/Video with Pt.: 25 Coding Level of Care Code Nutr Indiv Subseq (99973) Diagnoses Morbid obesity E66.01 Time Spent (min) 25
== END 2022-10-02 08:47 | disposition home or self-care (01) ==
LOC: HO.HBS 08:43
PROVIDERS: PCP Physician Assistant; Visit Provider Dietitian, Registered
DX: E66.01 Morbid (severe) obesity due to excess calories (principal)

== ENCOUNTER → 2022-10-02 08:43 | Outpatient (BNVA) | payer OTHER, SELFPAY | PROVIDERS: PCP Physician Assistant; Visit Provider Dietitian, Registered | DX: E66.01 Morbid (severe) obesity due to excess calories (principal) | CPT/HCPCS: 97803 ==

== ENCOUNTER 2022-10-04 08:16 | Outpatient (AMB) | payer OTHER, SELFPAY ==
--- NOTE | 2022-10-04 08:21 | MHC.OFFVISWM ---
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 Patient states he is dong very well without program. He will be going to [place] to be with ill son who was just recently diagnosed with bone cancer and leukemia. [facility] Plan would be to have bariatric surgery once he returns to [place]. Meal plan: does not feel that he needs any changes 6am - shake' 9a - shake 12pm - shake 4pm - dinner of 14 forks protien and 14 vegetables 7pm - shake' 9pm - bar Exercise - walks 1 mile in 25 minutes 7 mornings per week. Pre op work up com pleted as follows: [facility] classes - appts ? - juanito l be seen again, W ruben?09/23 - lisa kamara note. Finding th bakari visits helpful . RD appts - follo w up on 10/02, dereck red H pylori - neg ative Labs, - anem ia vit a and D ECG - normal, cardiac cath 2.5 years ag o Stress test- Imp ression: ? 1.? My ocardial perfusion imaging study [facility] ws equivocal for s mall area of infer oapical ischemia 2.? Gated LVEF is not obtained 3. T ransient ischemic dilatation not pre sent ? EKG is nond iagnostic for isch emia Will try mode man to have him seen by [facility] cardiology sooner than Oct er for surgicla cl earans.? ULS and U GI - September 2309/25 - cardiac lance arance by Dr Marcin kamara - low to interme diate risk. ?? PFSH Medical History Dyspnea on exertion Restrictive lung disease Surgical History No pertinent past surgical history Family History Father Colon cancer Mother Heart attack, Onset Age: 48 Son Leukemia Social History Housing: House Alcohol intake: current Alcohol intake frequency: a few times a month Alcohol type: beer Patient Tobacco Use Status: Former Tobacco user Tobacco use type: Cigarette Years Smoked: 15 +/- e-Cigarette/Vaping Use: Never Used Second Hand Smoke Exposure: No service: No Current occupational status: unemployed Cognitive needs: No Hearing needs: No Vision needs: Yes Physical Exam Vital Signs: Last Vital Signs Temp 97.9 F 10/04/22 08:31 Pulse 59 10/04/22 08:31 BP 141/64 H 10/04/22 08:31 Pulse Ox 93 10/04/22 08:31 Oxygen Delivery Method Room Air 10/04/22 08:31 BMI result Body Mass Index 66.8 Assessment & Plan Assessment & Plan (1) Morbid obesity: Code(s): E66.01 - Morbid (severe) obesity due to excess calories Plan: Pt is doing very well with 33.8 lbs lost in 2 months. His preoperative work up is complete and he will continue appts with Renetta. He understands he needs to lose at least another 50 lbs and due to his travel out of pending sale to [facility] - he will likely be ready for surgery in December. No changes to meal plan now. Exercise - will start to increase. Continue 1 mile walks every morning. Now add LS 1 mile videos 3d/ week and then increase to more days as he can. Will have follow up with me in Mid October. Patient is morbidly obese and is not considered stable at this time. I spent 28 minutes in total with patient reviewing/updating records, examining the patient and counseling the patient on weight management as detailed above. (2) BRET on CPAP: Comment: BRET is well treated with the application of CPAP, pressure of 16 cm. using Nasal Pillows HE IS VERY COMPLIANT AND BENEFITING.. Code(s): G47.33 - Obstructive sleep apnea (adult) (pediatric); Z99.89 - Dependence on other enabling machines and devices (3) HTN (hypertension): Comment: Stable Code(s): I10 - Essential (primary) hypertension Qualifiers: Hypertension type: essential hypertension Qualified Code(s): I10 - Essential (primary) hypertension Coding Level of Care Code Est Pt Level 4 (01803) Diagnoses Morbid obesity E66.01 BRET on CPAP G47.33; Z99.89 HTN (hypertension) I10 Hypertension type: essential hypertension
[2022-10-04 08:31] VITALS: BP 141/64; PULSE 59; TEMP 36.6; O2SAT 93; BMI 66.8
== END 2022-10-04 09:02 | disposition home or self-care (01) ==
PROVIDERS: PCP Physician Assistant; Visit Provider Physician Assistant
DX: E66.01 Morbid (severe) obesity due to excess calories (principal); Z68.44 Body mass index [BMI] 60.0-69.9, adult; G47.33 Obstructive sleep apnea (adult) (pediatric); Z99.89 Dependence on other enabling machines and devices; I10 Essential (primary) hypertension
CPT/HCPCS: 99213

== ENCOUNTER → 2022-10-04 08:16 | Outpatient (BNVA) | payer OTHER, SELFPAY | PROVIDERS: PCP Physician Assistant; Visit Provider Physician Assistant | DX: E66.01 Morbid (severe) obesity due to excess calories (principal); G47.33 Obstructive sleep apnea (adult) (pediatric); I10 Essential (primary) hypertension; Z68.44 Body mass index [BMI] 60.0-69.9, adult; Z99.89 Dependence on other enabling machines and devices | CPT/HCPCS: 99212 ==

== ENCOUNTER 2022-10-21 10:00 | Outpatient (AMB) | payer OTHER, SELFPAY ==
--- NOTE | 2022-10-21 10:10 | A.OFFWM_ITS ---
Intake Intake Visit Reasons: VIDEO f/u Allergies No Known Allergies Allergy (Verified 10/04/22 08:35) [facility] Medical History Dyspnea on exertion Restrictive lung disease Surgical History No pertinent past surgical history Family History Father Colon cancer Mother Heart attack, Onset Age: 48 Son Leukemia Social History Housing: House Alcohol intake: current Alcohol intake frequency: a few times a month Alcohol type: beer Patient Tobacco Use Status: Former Tobacco user Tobacco use type: Cigarette Years Smoked: 15 +/- e-Cigarette/Vaping Use: Never Used Second Hand Smoke Exposure: No service: No Current occupational status: unemployed Cognitive needs: No Hearing needs: No Vision needs: Yes Behavioral Health Assessment Weight Management Therapy Therapy Notes Details PT presents for a follow up. PT reports been very stressed and having a hard time being positive. This also have impacted his eating and has found himself picking here and there when stressed . PT has lost 33Lbs, and states he's feeling proud and also better physically. INTERVENTION: -Processed feelings and struggles remain ing focused on the present, challenges over-thinking about worse case scenarios. -Worked on thought-stopping techniques t o manage negative/catastrophic thoughts. -Discussed eating challenges as result o f high stress. -Praised Client for weight-loss and rein forced/redirected to remain engaged/committed with goals -Reviewed ways to manage stress-eating s uch having the hunger scale visible, use self-talk and using the name/write exercise. RESPONSE: PT was open and active in session. Seemed positive and stated been engaging in outdoor activities as stress-management approach. PLAN: F/up monthly. Presenting Concerns Referral Source WMP provider Reason for referral Completion of behavioral health assessment as part of process for weight-loss surgery. PT will continue receiving counseling support as part of P treatment/support. Precipitating Event Medical issues. Assessment & Plan Assessment & Plan (1) Binge eating disorder: Code(s): F50.81 - Binge eating disorder (2) Depression: Code(s): F32.A - Depression, unspecified Qualifiers: Depression Type: major depressive disorder Major depression recurrence: recurrent Major depression episode severity: unspecified Plan PT will continue receiving support, will f/up in 4 weeks. Telehealth Telehealth Location of provider rendering services: other (Home office. [place], [place].) Location of patient: address on file Patient Identification confirmed using: Name, : Yes Telehealth method: video Patient verbally consented to treatment: Yes Patient verbally consented to billing insurance company: Yes Patient informed of any privacy concerns related to visit: Yes Minutes spent on Phone/Video with Pt.: 45 Coding Level of Care Code Established Pt Tele Psytx 45 mins (43387) Patient Type Established Diagnoses Binge eating disorder F50.81 Depression F32.A Depression Type: major depressive disorder Major depression recurrence: recurrent Major depression episode severity: unspecified Time Spent (min) 45
== END 2022-10-21 12:00 | disposition home or self-care (01) ==
LOC: HO.HBST 10:50
PROVIDERS: PCP Physician Assistant; Visit Provider Counselor Mental Health
DX: F50.81 Binge eating disorder (principal); F32.A Depression, unspecified
CPT/HCPCS: 90834

== ENCOUNTER → 2022-10-21 10:00 | Outpatient (BNVA) | payer OTHER, SELFPAY | PROVIDERS: PCP Physician Assistant; Visit Provider Counselor Mental Health | DX: F50.81 Binge eating disorder (principal); F32.A Depression, unspecified ==

== ENCOUNTER 2022-10-23 09:14 | Outpatient (AMB) | payer OTHER, SELFPAY ==
--- NOTE | 2022-10-23 09:21 | MHC.OFFVIS ---
Intake Vital Signs 10/23/22 09:23 Height 5 ft 7 in Weight 436 lb 8.244 oz BMI 68.4 BP 112/70 Blood Pressure Location Lt radial Position Sitting Pulse 59 Pulse Source Pulse Oximeter Pulse Oximetry (%) 97 Oxygen Delivery Method Room Air Intake Visit Reasons: Obstructive sleep apnea Intake Note: pt is here for follow up and states he is doing well with cpap, and loosing weight. He feels good. 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 Allergies No Known Allergies Allergy (Verified 10/23/22 09:29) Medication List - Last Reconciled 10/23/22 by Liliam Ramirez MD cetirizine 10 mg PO DAILY cholecalciferol (vitamin D3) 50 mcg PO DAILY fluticasone propionate 50 mcg/actuation 1 spray intranasal DAILY PRN hydrochlorothiazide 25 mg PO DAILY iron,carbonyl-vitamin C 65 mg iron- 125 mg (Vitron-C) 1 tab PO BEDTIME lisinopril 20 mg PO DAILY metoprolol succinate ER 50 mg PO DAILY sennosides (Senna Lax) 17.2 mg (2 x 8.6 mg) PO BEDTIME PRN 30 days sumatriptan succinate 25 mg PO BID PRN tizanidine 4 mg PO TID PRN vitamin A palmitate 6,000 mcg (2 x 3,000 mcg (10,000 unit)) PO DAILY 2 weeks Do you need a note to return to daycare/school/sports/work: No HPI Obstructive sleep apnea HPI Details This 46 years old gentleman with morbid obesity and obstructive sleep apnea is here for 6 months follow-up. He is in weight management program and is already losing weight, expected to have gastric sleeve surgery in December. Uses his CPAP very regularly every night and sleeps good. He has no issues with the CPAP device are the mask. He has very Positive at [facility] Medical History Restrictive lung disease Dyspnea on exertion Surgical History No pertinent past surgical history Family History Father Colon cancer Mother Heart attack, Onset Age: 48 Son Leukemia Social History Housing: House Alcohol intake: current Alcohol intake frequency: a few times a month Alcohol type: beer Patient Tobacco Use Status: Former Tobacco user Tobacco use type: Cigarette Years Smoked: 15 +/- e-Cigarette/Vaping Use: Never Used Second Hand Smoke Exposure: No service: No Current occupational status: unemployed Cognitive needs: No Hearing needs: No Vision needs: Yes Review of Systems Const All systems reviewed & are unremarkable except as noted in HPI and below Eyes Reports no additional complaints ENT Reports nasal congestion (Mild intermittent) Card Denies chest pain, Denies irregular heart rhythm and Reports dyspnea on exertion Resp Reports dyspnea on exertion and Reports wheezing (Occasion) GI Reports no additional complaints Reports no additional complaints Musc Reports back pain Skin/Breast Reports system reviewed and no additional complaints, except as documented Neuro Reports no additional complaints Psych Reports no additional complaints Aller/Immun Reports wheezing (Occasion) Physical Exam He is grossly overweight, with a large round face, Const General: comfortable, no acute distress, alert and awake Orientation/consciousness: patient oriented x3 HEENT Head: Yes normal to inspection General nose exam: No nasal polyps present and No nasal discharge present Face and sinus: Yes sinuses nontender Mouth: oropharynx abnormals (Very narrow and crowded oropharynx, Mallampati class 4) Throat: Yes posterior oropharynx normal Eyes General: appearance normal, both eyes and all related structures Neck Neck: Yes normal visual inspection, Yes no lymphadenopathy, Yes trachea midline, Yes no JVD and Yes other (Grossly obese) Thyroid: Thyroid normal Chest Chest palpation & inspection: normal inspection of the chest, normal palpation of entire chest wall and no tenderness Resp Other: Percussion note is not perceptible, breath sounds are very distant, But no wheezes rhonchi or crepitations are heard . Cardio Palpation: normal PMI Rate: regular rate Rhythm: regular rhythm Heart sounds: no gallops and no murmurs Peripheral pulses: Peripheral pulses 2+ throughout GI Palpation (GI): Soft to palpation, nontender, No hepatosplenomegaly present, no masses and Other GI palpation findings present (Abdomen grossly obese and protuberant) Auscultation: normal bowel sounds Back/Spine/Pelvis Thoracic/Lumbar Spine: thoracic and lumbar spine normal to inspection and thoraco-lumbar ROM limited Skin General skin exam: no rashes or lesions noted Neuro General: patient oriented x3 and no focal motor deficits Cranial nerves: Yes CN's II-XII intact bilaterally Extrem General: Yes normal to inspection, Yes no clubbing, cyanosis or edema and Yes no calf tenderness Psych Appearance: grossly normal and well kempt Speech and movement: Normal speech and movement present Results Reviewed Results Reviewed: COMPLIANCE REPORT FOR THE LAST 30 NIGHTS IS REVIEWED. HIS USAGE HAS BEEN. 100% OF THE NIGHTS AVERAGE USE PER NIGHT 8 HOURS 9 MINUTES. RESIDUAL AHI ONLY 0.5 Assessment & Plan Assessment & Plan (1) Morbid obesity: Comment: HE REMAINS MORBIDLY OBESE BUT HE IS IN THE WEIGHT MANAGEMENT, PROGRAM AND IS ALREADY LOSING WEIGHT EXPECTED TO HAVE GASTRIC SLEEVE SURGERY IN DECEMBER THIS YEAR. Code(s): E66.01 - Morbid (severe) obesity due to excess calories (2) BRET on CPAP: Comment: BRET is well treated with the application of CPAP, pressure of 16 cm. using Nasal Pillows HE IS VERY COMPLIANT AND BENEFITING.. COMMENDED FOR HIS GOOD COMPLIANCE AND ENCOURAGED TO KEEP ON USING THE CPAP REGULARLY. Code(s): G47.33 - Obstructive sleep apnea (adult) (pediatric); Z99.89 - Dependence on other enabling machines and devices Coding Level of Care Code Est Pt Level 3 (96327) Diagnoses Morbid obesity E66.01 BRET on CPAP G47.33; Z99.89
[2022-10-23 09:23] VITALS: BP 112/70; PULSE 59; O2SAT 97; BMI 68.4
== END 2022-10-23 09:35 | disposition home or self-care (01) ==
PROVIDERS: PCP Physician Assistant; Visit Provider Internal Medicine
DX: E66.01 Morbid (severe) obesity due to excess calories (principal); G47.33 Obstructive sleep apnea (adult) (pediatric); Z99.89 Dependence on other enabling machines and devices
CPT/HCPCS: 99213

== ENCOUNTER → 2022-10-23 09:14 | Outpatient (BNVA) | payer OTHER, SELFPAY | PROVIDERS: PCP Physician Assistant; Visit Provider Internal Medicine | DX: G47.33 Obstructive sleep apnea (adult) (pediatric) (principal); E66.01 Morbid (severe) obesity due to excess calories; Z99.89 Dependence on other enabling machines and devices; Z68.44 Body mass index [BMI] 60.0-69.9, adult | CPT/HCPCS: 99212 ==

== ENCOUNTER 2022-11-11 11:45 | Outpatient (AMB) | payer OTHER, SELFPAY ==
--- NOTE | 2022-11-11 17:42 | MHC.WMTHER ---
Intake Intake Visit Reasons: VIDEO f/u Allergies No Known Allergies Allergy (Verified 10/23/22 09:29) [facility] Medical History Restrictive lung disease Dyspnea on exertion Surgical History No pertinent past surgical history Family History Father Colon cancer Mother Heart attack, Onset Age: 48 Son Leukemia Social History Housing: House Alcohol intake: current Alcohol intake frequency: a few times a month Alcohol type: beer Patient Tobacco Use Status: Former Tobacco user Tobacco use type: Cigarette Years Smoked: 15 +/- e-Cigarette/Vaping Use: Never Used Second Hand Smoke Exposure: No service: No Current occupational status: unemployed Cognitive needs: No Hearing needs: No Vision needs: Yes Behavioral Health Assessment Weight Management Therapy Therapy Notes Details PT presents for a f/up. Pt reports been stressed but doing well and staying on meal plan however, has notices it's a challenge not to snack when worried. INTERVENTIONS: Discussed overall functioning. Identified stressors and recent challenges. Validated and normalized feelings. Re-direct for succes, encourage to focus on the here/now to prevent getting discouraged when having a cheat moment . Reviewed minfdfullness strategies and encourage to use distraction and, other coping methods when having cravings. RESPONSE: Pt was open, cooperative and sharing. MSE within normal limits. PLAN: continue with regular sessions. Assessment & Plan Assessment & Plan (1) Binge eating disorder: Code(s): F50.81 - Binge eating disorder (2) Depression: Code(s): F32.A - Depression, unspecified Plan PT will continue receiving support, will f/up in 4 weeks. Next wilmar: 12/09 @11am via telehealth. Telehealth Telehealth Location of provider rendering services: other (Home office. [place], [place]) Location of patient: other Patient Identification confirmed using: Name, : Yes Telehealth method: voice only Patient verbally consented to treatment: Yes Patient verbally consented to billing insurance company: Yes Patient informed of any privacy concerns related to visit: Yes Minutes spent on Phone/Video with Pt.: 30 Coding Level of Care Code Established Pt Tele Psytx 30 mins (45801) Patient Type Established Diagnoses Binge eating disorder F50.81 Depression F32.A Time Spent (min) 30 Comment We were only able to do 30 minutes due to connections issues.
== END 2022-11-11 17:50 | disposition home or self-care (01) ==
LOC: HO.HBST 11:45
PROVIDERS: PCP Physician Assistant; Visit Provider Counselor Mental Health
DX: F50.81 Binge eating disorder (principal); F32.A Depression, unspecified
CPT/HCPCS: 90832

== ENCOUNTER → 2022-11-11 11:45 | Outpatient (BNVA) | payer OTHER, SELFPAY | PROVIDERS: PCP Physician Assistant; Visit Provider Counselor Mental Health ==

== ENCOUNTER 2022-12-05 10:18 | Outpatient (AMB) | payer OTHER, SELFPAY ==
--- NOTE | 2022-12-05 10:18 | MHC.OFFVISWM ---
Intake VS Expanded 12/05/22 10:25 BP 153/67 H Blood Pressure Location Rt brachial Blood Pressure Position Sitting Pulse 67 Pulse Source Pulse Oximeter Temp 96.9 F Temperature Source Tympanic Pulse Oximetry 95 Oxygen Delivery Method Room Air Height 5 ft 7 in Weight 421 lb 12.8 oz BMI 66.1 Body Fat % 52.0 Body Fat Mass 219.4 Fat Free Mass 202.4 Visceral Fat Rating 48.0 Body Water % 38.4 Body Water Mass 161.8 Muscle Mass/Score 192.4 Basal Metabolic Rate/Score 3,026 Intake Visit Reasons: (OV) F/U SWL Information Security Consultant Required: No Allergies No Known Allergies Allergy (Verified 12/05/22 10:31) HPI HPI Comments History of Present Illness Details SW follow up, [employer] weight of 460.2 lbs TBWL of 38.4 lbs or 8.3%. Patient states he is dong very well without program. He will be going to [place] to be with ill son who was just recently diagnosed with bone cancer and leukemia. [facility]. Plan would be to have bariatric surgery once he returns to [place]. Meal plan:has restarted his meal plan as of yesterday 6am - shake - PP RTD 9a - shake 12pm - shake 3pm - shake 6pm - dinner of 14 forks protein (chicken air fried or steaamed) and 14 vegetables (lettuce, tomatoes, cauliflower, carrots - steamed with ranch dressing) 8 pm - shake bar - cut in 10 pieces throughout the day. Exercise - none wheil awy, restarted yesterday on treaadmill at gym - speed of 3, incline 0- 7, 30 minutes - ?? calories Pre op work up completed as follows: [facility] classes - appts ? - will be seen again, Renetta?09/23 - drafted note. Finding these visits helpful, 12/[address] appts - follow up on 10/02, cleared H pylori - negative Labs, - anemia vit a and D ECG - normal, cardiac cath 2.5 years ago CXR - normal ECHO - Impression: ? 1.? Myocardial perfusionimaging study shows equivocal for small areaof inferoapical ischemia 2.? Gated LVEF is not obtained 3. Transient ischemic dilatation not present ? EKG is nondiagnostic for ischemia Cardiac stress test Pharmacological stress test with Lexiscan injection while sitting and kicking his legs, without anginal symptoms, without arrhythmias, with normotensive response to injection, without EKG changes. Nuclear images pending. Test reviewed with Dr. Tolbert. ULS - fatty liver, L 21 cms, 17 cms, hepatomegaly UGI - normal 09/25 - cardiac clearance by Dr Louie - low to intermediate risk. ?? PFSH Medical History Restrictive lung disease Dyspnea on exertion Surgical History No pertinent past surgical history Family History Father Colon cancer Mother Heart attack, Onset Age: 48 Son Leukemia Social History Housing: House Alcohol intake: current Alcohol intake frequency: a few times a month Alcohol type: beer Patient Tobacco Use Status: Former Tobacco user Tobacco use type: Cigarette Years Smoked: 15 +/- e-Cigarette/Vaping Use: Never Used Second Hand Smoke Exposure: No service: No Current occupational status: unemployed Cognitive needs: No Hearing needs: No Vision needs: Yes Physical Exam Vital Signs: Last Vital Signs Temp 96.9 F 12/05/22 10:25 Pulse 67 12/05/22 10:25 BP 153/67 H 12/05/22 10:25 Assessment & Plan Assessment & Plan (1) Morbid obesity: Code(s): E66.01 - Morbid (severe) obesity due to excess calories Plan: Pt has lost 38.4 lbs in our program, and has about another 80 lbs to lose befreo surgery can be deemed safe for him. He is aware goal weight of about 360 lbs prior to surgery. Meal plan: 4 shakes per dayat 6am/9am/3pm and 8pm. Bar at 12pm dinner meal at 5 pm Exercise - needs daily routine. Gym treadmill for 300 calories, incline 1- 4 or 5 for now. Other days LS start with 1 mile videos and advance to 2 miles. Next appt with me in 3 weeks via video, will send weekly weights. Patient is morbidly obese and is not considered stable at this time. I spent 30 minutes in total with patient reviewing/updating records, examining the patient and counseling the patient on weight management as detailed above. (2) BRET on CPAP: Comment: BRET is well treated with the application of CPAP, pressure of 16 cm. using Nasal Pillows HE IS VERY COMPLIANT AND BENEFITING.. COMMENDED FOR HIS GOOD COMPLIANCE AND ENCOURAGED TO KEEP ON USING THE CPAP REGULARLY. Code(s): G47.33 - Obstructive sleep apnea (adult) (pediatric); Z99.89 - Dependence on other enabling machines and devices (3) Steatosis, liver: Code(s): K76.0 - Fatty (change of) liver, not elsewhere classified (4) Hepatomegaly: Code(s): R16.0 - Hepatomegaly, not elsewhere classified Coding Level of Care Code Est Pt Level 4 (59440) Diagnoses Morbid obesity E66.01 BRET on CPAP G47.33; Z99.89 Steatosis, liver K76.0 Hepatomegaly R16.0
[2022-12-05 10:25] VITALS: BP 153/67; PULSE 67; TEMP 36.1; O2SAT 95; BMI 66.1
== END 2022-12-05 10:59 | disposition home or self-care (01) ==
PROVIDERS: PCP Physician Assistant; Visit Provider Physician Assistant
DX: E66.01 Morbid (severe) obesity due to excess calories (principal); Z68.44 Body mass index [BMI] 60.0-69.9, adult; Z99.89 Dependence on other enabling machines and devices; K76.0 Fatty (change of) liver, not elsewhere classified; R16.0 Hepatomegaly, not elsewhere classified
CPT/HCPCS: 99214

== ENCOUNTER → 2022-12-05 10:18 | Outpatient (BNVA) | payer OTHER, SELFPAY | PROVIDERS: PCP Physician Assistant; Visit Provider Physician Assistant | DX: E66.01 Morbid (severe) obesity due to excess calories (principal); G47.33 Obstructive sleep apnea (adult) (pediatric); K75.0 Abscess of liver; R16.0 Hepatomegaly, not elsewhere classified; Z99.89 Dependence on other enabling machines and devices; Z68.44 Body mass index [BMI] 60.0-69.9, adult | CPT/HCPCS: 99212 ==

== ENCOUNTER 2022-12-09 11:00 | Outpatient (AMB) | payer OTHER, SELFPAY ==
--- NOTE | 2022-12-09 11:24 | A.OFFWM_ITS ---
Intake Intake Visit Reasons: VIDEO BH F/U Allergies No Known Allergies Allergy (Verified 12/05/22 10:31) ON LICENSE OF [facility] Medical History Restrictive lung disease Dyspnea on exertion Surgical History No pertinent past surgical history Family History Father Colon cancer Mother Heart attack, Onset Age: 48 Son Leukemia Social History Housing: House Alcohol intake: current Alcohol intake frequency: a few times a month Alcohol type: beer Patient Tobacco Use Status: Former Tobacco user Tobacco use type: Cigarette Years Smoked: 15 +/- e-Cigarette/Vaping Use: Never Used Second Hand Smoke Exposure: No service: No Current occupational status: unemployed Cognitive needs: No Hearing needs: No Vision needs: Yes Behavioral Health Assessment Weight Management Therapy Therapy Notes Details Pt presents for a follow up. He reports feeling discouraged after last session with provider INTERVENTIONS: Supportive listening, processed recent appointment with provider and complete an ABC analysis to identify the triggers from encounter, patients responses (Mental/emotional/behavioral), reflected on patterns, explored alternatives using Socratic questions and cognitive challenge, then review alternative responses and showerd changes on patterns when we respon/interpret and cope different. Used this event as example of his progress and needs and reflected in ways to use this as motivation. Presented client with behavior activation plan to increase physical activities and include on routine other things that don't involve food and also serve as stress management techniques, such as mindful walks, mindfulness exercises, prayers/medication, meals according to meal plan, positive social interactions. Provided client with tips.strategies for upcoming holidays and remain on meal plan. RESPONSES: Pt responded well to interventions and recognized negative thoughts he showed when triggered. Was very open to explore further and identify areas to change/improve. PLAN: continue meeting on a monthly basis. Patient is cleared but will continue meeting with me on a monhly basis. Presenting Concerns Referral Source [facility] PROVIDER Reason for referral Bariatric surgery. Precipitating Event Obesity, medical issues, decreased physical activity. Assessment & Plan Assessment & Plan (1) Binge eating disorder: Code(s): F50.81 - Binge eating disorder (2) Depression: Code(s): F32.A - Depression, unspecified Plan Continue meeting every 4 weeks. Next wilmar: 01/06/23 at 11am, via telehealth. Telehealth Telehealth Location of provider rendering services: other (home office. [place], [place]) Location of patient: address on file Patient Identification confirmed using: Name, : Yes Telehealth method: video Patient verbally consented to treatment: Yes Patient verbally consented to billing insurance company: Yes Patient informed of any privacy concerns related to visit: No Minutes spent on Phone/Video with Pt.: 60 Coding Level of Care Code Established Pt Tele Psytx >53 mins (75925) Patient Type Established Diagnoses Binge eating disorder F50.81 Depression F32.A Time Spent (min) 60
== END 2022-12-09 21:30 | disposition home or self-care (01) ==
PROVIDERS: PCP Physician Assistant; Visit Provider Counselor Mental Health
DX: F50.81 Binge eating disorder (principal); F32.A Depression, unspecified
CPT/HCPCS: 90837

== ENCOUNTER → 2022-12-09 11:00 | Outpatient (BNVA) | payer OTHER, SELFPAY | PROVIDERS: PCP Physician Assistant; Visit Provider Counselor Mental Health ==

== ENCOUNTER 2022-12-17 08:59 | Outpatient (AMB) | payer OTHER, SELFPAY ==
[2022-12-17 09:01] VITALS: BP 102/62; PULSE 60; O2SAT 97; BMI 68.1
--- NOTE | 2022-12-17 09:01 | A.OFFPC_ITS ---
Vital Signs 12/17/22 09:01 Height 5 ft 7 in Weight 434 lb 15.552 oz BMI 68.1 BP 102/62 Blood Pressure Location Lt brachial Position Sitting Pulse 60 Pulse Source Pulse Oximeter Pulse Oximetry (%) 97 Oxygen Delivery Method Room Air Intake Visit Reasons: Annual Exam Intake Note: Pt is here for annual exam. Poultry Dresser Required: No Accompanied by: Self / Same As Patient Allergies No Known Allergies Allergy (Verified 12/17/22 09:31) Medication List - Last Reconciled 12/17/22 by Delmer Wilkinson PA-C cetirizine 10 mg PO DAILY cholecalciferol (vitamin D3) 50 mcg PO DAILY fluticasone propionate 50 mcg/actuation 1 spray intranasal DAILY PRN hydrochlorothiazide 25 mg PO DAILY iron,carbonyl-vitamin C 65 mg iron- 125 mg (Vitron-C) 1 tab PO BEDTIME lisinopril 20 mg PO DAILY metoprolol succinate ER 50 mg PO DAILY sennosides (Senna Lax) 17.2 mg (2 x 8.6 mg) PO BEDTIME PRN 30 days sumatriptan succinate 25 mg PO BID PRN tizanidine 4 mg PO TID PRN vitamin A palmitate 6,000 mcg (2 x 3,000 mcg (10,000 unit)) PO DAILY 2 weeks Tobacco use date assessed: 05/13/22 Dental Screening Dental Screen Date: 12/17/22 Did you have a dental visit in the last 12 months?: No Did you have a dental problem in the last 6 months where you did not have access to dental care?: No Was dental information given to patient?: Patient has dentist HPI Annual Exam HPI Details Wally is a 47 year old male here today f for routine annual physical.? . Pateint has a pmhx significant for Morbid obesity, Sleep apnea, chronic knee/ lumbar spine pain, hypertension, major depressive disorder, urinary incontinence. Concern--> has been working hard on being more physically active. Has been walking a lot though does report having lower back pain and bilateral knee pain from his physical activity. We did discuss the possibility of getting himself into a pool to do nonweightbearing exercises.. . Impaired glucose metabolism: Noted most recent A1c is 6.0. He is interested in starting Ozempic for hyperglycemia control and added benefit of weight loss. ? .. ? Morbid obesity:? Has been walking daily and has lost weight.? He has reestablish care with [place] [facility] in has been losing weight.. . ? BRET: Using CPAP on occasion nightly? , is followed by Dr. Zhou.? Headaches since resolved since using CPAP nightly. ? .. ? HTN:? Blood pressure today in office acceptable. He continues on metoprolol and lisinopril with good effect on his blood pressure. Has not been taking hydrochlorothiazide this will take off medication list..? He does monitor his blood pressures at home and does report normal readings.?Denies any vision issues, chest discomforts or headaches.? Vaccines: Up-to-date with COVID vaccine, flu vaccine, tetanus vaccine, needs up-to-date pneumonia vaccine. Colon cancer screening: Has upcoming scheduled colonoscopy , Has not been able to get colonoscopy due to weight PFSH Medical History Restrictive lung disease Dyspnea on exertion Surgical History No pertinent past surgical history Family History Father Colon cancer Mother Heart attack, Onset Age: 48 Son Leukemia Social History (Updated 12/17/22 @ 09:35 by Delmer Wilkinson PA-C) Housing: House Alcohol intake: current Alcohol intake frequency: a few times a month Alcohol type: beer Patient Tobacco Use Status: Former Tobacco user Quit Date: 2021 Tobacco use type: Cigarette Years Smoked: 15 +/- e-Cigarette/Vaping Use: Never Used Second Hand Smoke Exposure: No service: No Current occupational status: unemployed Cognitive needs: No Hearing needs: No Vision needs: Yes Questionnaire Thrive Questionnaire Date Thrive assessed: 05/13/22 HEAVENLY-7 AMB Questionnaire HEAVENLY-7 Date HEAVENLY - 7 assessed: 05/13/22 Source: Developed by Drs. Christopher Vazquez, Majo Blanca, Compa No and colleagues, with an educational kassidy from [employer]. Review of Systems Const Denies body aches, Denies chills, Denies excessive sweating, Denies fatigue, Denies fever(s) and Denies headache(s) Eyes Denies blurry vision ENT Denies dysphagia, Denies vertigo, Denies dizziness, Denies headache(s), Denies hearing loss and Denies tinnitus Card Denies chest pain, Denies chest pain with activity, Denies syncope, Denies irregular heart rhythm and Denies dyspnea Resp Denies chest congestion, Denies cough, Denies hemoptysis, Denies dyspnea and Denies wheezing GI Denies abdominal pain, Denies melena, Denies hematochezia, Denies coffee ground emesis, Denies dysphagia, Denies diarrhea, Denies nausea and Denies vomiting Denies difficulty urinating, Denies dysuria, Denies urinary frequency, Denies urinary hesitancy and Denies urinary urgency Musc Details: BILATERAL KNEE PAIN Reports back pain, Denies arthralgias, Denies limited range of motion, Denies muscle cramps and Denies muscle weakness Skin/Breast Denies rash and Denies skin ulcer Neuro Denies Abnormal speech present, Denies confusion, Denies vertigo, Denies dizzine ss, Denies syncope, Denies headache(s), Denies memory loss and Denies seizure- like activity Psych Denies anxiety, Denies confusion, Denies depression, Denies memory loss, Denies panic attacks and Denies paranoia Endo Denies excessive sweating, Denies fatigue, Denies flushing, Denies polydipsia and Denies polyuria Aller/Immun Denies wheezing Physical exam (Primary Care) Vital Signs: Last Vital Signs Pulse 60 12/17/22 09:01 BP 102/62 12/17/22 09:01 Pulse Ox 97 12/17/22 09:01 Oxygen Delivery Method Room Air 12/17/22 09:01 BMI result Body Mass Index 68.1 BMI Assessment/Plan discussion: High Tobacco/Smoking Status: Tobacco use Status Tobacco use date assessed 05/13/22 12/17/22 09:02 Patient Tobacco Use Status Former Tobacco user 12/17/22 09:35 Tobacco use type Cigarette 12/17/22 09:35 e-Cigarette/Vaping Use Never Used 12/17/22 09:35 Thrive Assessment: Date of Thrive Assessment Date Thrive assessed 05/13/22 12/17/22 09:02 Const Other: Morbidly obese General: cooperative, comfortable, no acute distress, alert and awake; No confusion Orientation/consciousness: oriented to person, oriented to place, patient oriented x3 and No confusion HENMT Head: Yes normocephalic Ears: external ears normal and TM's normal bilaterally Face and sinus: No sinus tenderness Mouth: Normal oral and palatal mucosa present and tongue normal Teeth and gingiva: dentition normal and gingiva normal Throat: Yes posterior oropharynx normal, Yes tonsils normal and Yes uvula midline Eyes Conjunctivae: conjunctivae normal Sclerae: sclerae normal Pupils: Equal, round and reactive pupils present EOM: EOMs intact bilaterally Direct Ophthalmoscopy: No no photophobia Neck Neck: Yes no lymphadenopathy, No tender and Yes no JVD Thyroid: Thyroid normal Carotids: no bruits Chest Chest palpation & inspection: no tenderness Resp Effort & Inspection: normal respiratory effort, no audible wheezes, not labored and no stridor Auscultation: no crackles, no rales, no rhonchi and no wheezes Cardio Jugular venous distension: no JVD Rate: regular rate, not bradycardic and not tachycardic Rhythm: regular rhythm Bruits: no carotid bruits Peripheral pulses: Peripheral pulses 2+ throughout GI Inspection: Yes normal to inspection, No abdominal wall ecchymosis and No visible herniation Palpation (GI): Soft to palpation, nontender, no guarding, not rigid and No hepatosplenomegaly present Auscultation: normoactive bowel sounds General: Yes no CVA tenderness Back/Spine/Pelvis Back: no CVA tenderness and No back tenderness Cervical Spine: cervical ROM normal Thoracic/Lumbar Spine: thoracic and lumbar spine normal to inspection, straight leg raise negative bilaterally, No thoraco-lumbar ROM limited and No lumbar spinal tenderness Skin Lesions: no lesions Rashes: no rashes Wounds: no wounds Neuro General: oriented to person, oriented to place, patient oriented x3, CN's II-XI intact bilaterally and No confusion Cranial nerves: Yes Equal, round and reactive pupils present and Yes Normal accommodation reflex present Cognition (Neuro): normal cognition Speech: No Abnormal speech present Gait exam (Neuro): Normal gait present Motor exam (neuro): 5/5 motor strength present throughout Extrem Right upper extremity: full ROM; no cyanosis Left upper extremity: full ROM; no cyanosis Right lower extremity: no edema Left lower extremity: no edema Psych Appearance: grossly normal Mental Status: mental status grossly normal Affect: normal affect Attitude: cooperative Thought process: Normal thought process present Office Procedures Flu Questionnaire Does the patient have a severe egg allergy?: No Does the patient have severe life threatening allergies?: No Does the patient have a fever or illness today?: No Has the patient ever had Guillain-[place] Syndrome?: No Has the patient ever had any past reaction to a flu shot?: No Results AMB Hemoglobin A1c AMB Hemoglobin A1c 6.0 % Last Edit by CHAVEZ Kerns on 12/17/22 09:24 Immunizations flu vacc [id number] 6mos up(PF) 60 mcg(15 mcgx4)/0.5 mL IM syringe Performing Provider: Delmer Wilkinson PA-C Performing Location: [facility] [place] [facility] Administered by: CHAVEZ Kerns on 12/17/22 09:23 Dose Route Admin Location Dispensed Lot Number Expiration Date ND Windows Vmware Engineer 0.5 mL IM Left Deltoid 0.5 mL [id number] 08/10/23 [id number] [employer] VIS Given Date VIS Provided VIS Publication Date 12/17/22 Single Vaccine 20 Eligibility Eligibility Date Funding Source Not VFC Eligible 12/17/22 Private pneumoc 20-amy conj-dip cr(PF) 0.5 mL IM syringe Performing Provider: Delmer Wilkinson PA-C Performing Location: [facility] [place] [facility] Administered by: CHAVEZ Kerns on 12/17/22 09:58 Dose Route Admin Location Dispensed Lot Number Expiration Date ND Windows Vmware Engineer 0.5 mL IM Right Deltoid 0.5 mL [id number] 12/11/23 [id number] [employer] VIS Given Date VIS Provided VIS Publication Date 12/17/22 Single Vaccine 21 Eligibility Eligibility Date Funding Source Not VFC Eligible 12/17/22 Private Results Reviewed Results Reviewed: Laboratory Last Values Hgb A1c (Clinic) 6.0 % (4.0-6.0) 12/17/22 09:24 Assessment and Plan Assessment & Plan (1) Annual physical exam: Code(s): Z00.00 - Encounter for general adult medical examination without abnormal findings (2) Morbid obesity: Code(s): E66.01 - Morbid (severe) obesity due to excess calories Plan: Patient continues to follow [place] [facility] program. Continues to try to be physically active to reduce his weight. Has been more physically active and now on new bariatric diet. He anticipates weight loss surgery (3) HTN (hypertension): Comment: Stable Code(s): I10 - Essential (primary) hypertension Qualifiers: Hypertension type: essential hypertension Qualified Code(s): I10 - Essential (primary) hypertension Plan: Patient's blood pressure acceptable today in office, will continue his current dose of antihypertensive medication with goal blood pressure to be below 140/90 (4) BRET on CPAP: Comment: BRET is well treated with the application of CPAP, pressure of 16 cm. using Nasal Pillows HE IS VERY COMPLIANT AND BENEFITING.. COMMENDED FOR HIS GOOD COMPLIANCE AND ENCOURAGED TO KEEP ON USING THE CPAP REGULARLY. Code(s): G47.33 - Obstructive sleep apnea (adult) (pediatric); Z99.89 - Dependence on other enabling machines and devices Plan: Continues to be compliant with his CPAP machine on a nightly basis. (5) Impaired glucose metabolism: Code(s): R73.09 - Other abnormal glucose Plan: Most recent A1c is 6.0. Not technically diabetic though would like to start Ozempic for added benefit of weight loss. Orders: Orders AMB Hemoglobin A1c Today Z13.1 - Encounter for screening for diabetes mellitus Influenza [id number] Immunization Today Z23 - Encounter for immunization Comprehensive [place]. Panel Fast Today E11.9 - Type 2 diabetes mellitus without complications Lipid Panel Today E11.9 - Type 2 diabetes mellitus without complications Complete Blood Count no Diff Today E11.9 - Type 2 diabetes mellitus without complications Hemoglobin A1c Today E11.9 - Type 2 diabetes mellitus without complications Pneumococcal 20 Immunization Today E11.9 - Type 2 diabetes mellitus without complications, Z23 - Encounter for immunization Medications: New semaglutide (Ozempic) for 4 weeks 0.25 mg (0.368 mL) subcut QWEEK 6 weeks 3 mL 1RF E11.9 - Type 2 diabetes mellitus without complications, E66.01 - Morbid (severe) obesity due to excess calories Changed From cetirizine 10 mg PO DAILY 30 tabs 2RF E11.9 - Type 2 diabetes mellitus w ithout complications To cetirizine 10 mg PO DAILY 90 days 90 tabs 2RF E11.9 - Type 2 diabetes mellitus without complications From sennosides (Senna Lax) 17.2 mg (2 x 8.6 mg) PO BEDTIME 30 days PRN 60 tabs 0RF constipation K59.09 - Other constipation To sennosides (Senna Lax) 17.2 mg (2 x 8.6 mg) PO BEDTIME 90 days PRN 180 tabs 2RF constipation K59.09 - Other constipation From tizanidine 4 mg PO TID PRN E11.9 - Type 2 diabetes mellitus without complications To tizanidine 4 mg PO TID 30 days PRN 30 tabs 0RF muscle spasticity E11.9 - Type 2 diabetes mellitus without complications From vitamin A palmitate 6,000 mcg (2 x 3,000 mcg (10,000 unit)) PO DAILY 2 weeks 28 tabs 0RF E11.9 - Type 2 diabetes mellitus without complications To vitamin A palmitate 6,000 mcg (2 x 3,000 mcg (10,000 unit)) PO DAILY 90 days 180 tabs 1RF E11.9 - Type 2 diabetes mellitus without complications Refilled cholecalciferol (vitamin D3) 50 mcg PO DAILY 90 caps 2RF E11.9 - Type 2 diabetes mellitus without complications lisinopril 20 mg PO DAILY 90 tabs 2RF E11.9 - Type 2 diabetes mellitus without complications metoprolol succinate ER 50 mg PO DAILY 90 tabs 2RF I10 - Essential (primary) hypertension Coding Level of Care Code Est Pt Prev Care 40-64y(52818) Diagnoses Annual physical exam Z00.00 Morbid obesity E66.01 Essential hypertension I10 Hypertension type: essential hypertension BRET on CPAP G47.33; Z99.89 Impaired glucose metabolism R73.09
== END 2022-12-17 09:58 | disposition home or self-care (01) ==
PROVIDERS: PCP Physician Assistant; Visit Provider Physician Assistant
DX: Z23 Encounter for immunization (principal); Z00.00 Encounter for general adult medical examination without abnormal findings; E66.01 Morbid (severe) obesity due to excess calories; Z68.44 Body mass index [BMI] 60.0-69.9, adult; G47.33 Obstructive sleep apnea (adult) (pediatric); E11.9 Type 2 diabetes mellitus without complications
CPT/HCPCS: 83036; 90471; 90472; 90677; 90686; 99396

== ENCOUNTER 2022-12-23 15:15 | Outpatient (AMB) | payer OTHER, SELFPAY ==
--- NOTE | 2022-12-23 15:09 | A.OFFVIS_ITS ---
Intake VS Expanded 12/23/22 15:20 Height 5 ft 7 in Weight 413 lb BMI 64.7 Intake Visit Reasons: VIDEO F/U SWL Allergies No Known Allergies Allergy (Verified 12/17/22 09:31) HPI HPI Comments History of Present Illness Details SW follow up, [employer] weight of 460.2 lbs, TBWL is 47.2 lbs or 10 .2%. Still has not been able to send me weekly weights and exercise work outs - states his daughter will be teaching him this week. Meal plan Pure protein RTD shakes at 6am, 9am, 3pm and 8 pm 12pm - bar 5pm - meal of 14 forks of protein and 14 forks vegetable Exercise - every morning 1 hour per day - walks outside believes 2 miles, [place] 270. 3 d gym Treadmill - speed 2-3, speed ? marquis 300 - 320 calories. Pre op work up completed as follows: SWL classes - appts ? - Finding these visits helpful, 12/09 last appt, scheduled for every 4 weeks with Wendy. RUEDA appts - follow up on 10/02, cleared H pylori - negative Labs, - anemia vit a and D ECG - normal, cardiac cath 2.5 years ago CXR - normal ECHO - Impression: 1.? Myocardial perfusionimaging study sh ows equivocal for small areaof inferoapical ischemia 2.? Gated LVEF is not obtained 3. Transient ischemic dilatation not pre sent? EKG is nondiagnostic for ischemia Cardiac stress test Pharmacological stress test with Lexiscan injection while sitting and kicking his legs, without anginal symptoms, without arrhythmias, with normotensive response to injection, without EKG changes. Nuclear images pending. Test reviewed with Dr. Tolbert. ULS - fatty liver, L 21 cms, 17 cms, hepatomegaly UGI - normal 09/25 - cardiac clearance by Dr Louie - low to intermediate risk. ?? PFSH Medical History Restrictive lung disease Dyspnea on exertion Surgical History No pertinent past surgical history Family History Father Colon cancer Mother Heart attack, Onset Age: 48 Son Leukemia Social History (Updated 12/17/22 @ 09:35 by Delmer Wilkinson PA-C) Housing: House Alcohol intake: current Alcohol intake frequency: a few times a month Alcohol type: beer Patient Tobacco Use Status: Former Tobacco user Quit Date: 2021 Tobacco use type: Cigarette Years Smoked: 15 +/- e-Cigarette/Vaping Use: Never Used Second Hand Smoke Exposure: No service: No Current occupational status: unemployed Cognitive needs: No Hearing needs: No Vision needs: Yes Assessment & Plan Assessment & Plan (1) Morbid obesity: Code(s): E66.01 - Morbid (severe) obesity due to excess calories Plan: Excellent progress with 47 lbs or 10.2 % lost so far. No changes to his meal plan. Ultimate goal weight before surgery in 360 lbs. He is still working on learning how to send me his information electronically. Hope he can do this by next week. Exercise - I need mroe information - he states will send me screen shots. Daily walk increase to at least 300 calories burned by going a little faster Treadmill - at least 350 calories - speed 3.0, inclien 1-6 change every 3 mintues Pre op work up completed, continues appts with Renetta Next appt with me in 3 weeks. Patient is still morbidly obese and is not considered stable at this time. I spent 28 minutes in total speaking with the patient via video conference mortgage counselor ing , reviewing records and charting in patients chart. . (2) HTN (hypertension): Comment: Stable Code(s): I10 - Essential (primary) hypertension Qualifiers: Hypertension type: essential hypertension Qualified Code(s): I10 - Essential (primary) hypertension (3) BRET on CPAP: Comment: BRET is well treated with the application of CPAP, pressure of 16 cm. using Nasal Pillows HE IS VERY COMPLIANT AND BENEFITING.. COMMENDED FOR HIS GOOD COMPLIANCE AND ENCOURAGED TO KEEP ON USING THE CPAP REGULARLY. Code(s): G47.33 - Obstructive sleep apnea (adult) (pediatric); Z99.89 - Dependence on other enabling machines and devices (4) DMII (diabetes mellitus, type 2): Code(s): E11.9 - Type 2 diabetes mellitus without complications (5) Hepatomegaly: Code(s): R16.0 - Hepatomegaly, not elsewhere classified Telehealth Telehealth Location of provider rendering services: practice address Location of patient: address on file Patient Identification confirmed using: Name, : Yes Telehealth method: video Patient verbally consented to treatment: Yes Patient verbally consented to billing insurance company: Yes Patient informed of any privacy concerns related to visit: Yes Coding Level of Care Code Tele Est Pt Level 4 (45005) Diagnoses Morbid obesity E66.01 Essential hypertension I10 Hypertension type: essential hypertension BRET on CPAP G47.33; Z99.89 DMII (diabetes mellitus, type 2) E11.9 Hepatomegaly R16.0
[2022-12-23 15:20] VITALS: BMI 64.7
== END 2022-12-23 15:38 | disposition home or self-care (01) ==
LOC: HO.HBS 15:25
PROVIDERS: PCP Physician Assistant; Visit Provider Physician Assistant
DX: E66.01 Morbid (severe) obesity due to excess calories (principal); I10 Essential (primary) hypertension; G47.33 Obstructive sleep apnea (adult) (pediatric); Z99.89 Dependence on other enabling machines and devices; E11.9 Type 2 diabetes mellitus without complications; R16.0 Hepatomegaly, not elsewhere classified
CPT/HCPCS: 99214

== ENCOUNTER → 2022-12-23 15:15 | Outpatient (BNVA) | payer OTHER, SELFPAY | PROVIDERS: PCP Physician Assistant; Visit Provider Physician Assistant ==

== ENCOUNTER 2023-01-06 11:00 | Outpatient (AMB) | payer OTHER, SELFPAY ==
--- NOTE | 2023-01-08 10:23 | A.OFFWM_ITS ---
Intake Intake Visit Reasons: VIDEO BH F/U Allergies No Known Allergies Allergy (Verified 12/17/22 09:31) [facility] Medical History Restrictive lung disease Dyspnea on exertion Surgical History No pertinent past surgical history Family History Father Colon cancer Mother Heart attack, Onset Age: 48 Son Leukemia Social History (Updated 12/17/22 @ 09:35 by Delmer Wilkinson PA-C) Housing: House Alcohol intake: current Alcohol intake frequency: a few times a month Alcohol type: beer Patient Tobacco Use Status: Former Tobacco user Quit Date: 2021 Tobacco use type: Cigarette Years Smoked: 15 +/- e-Cigarette/Vaping Use: Never Used Second Hand Smoke Exposure: No service: No Current occupational status: unemployed Cognitive needs: No Hearing needs: No Vision needs: Yes Behavioral Health Assessment Weight Management Therapy Therapy Notes Details Pt presents for a follow up. Pt reports been feeling down and disappointed but trying to remain focus. INTERVENTIONS: Active listening, processed feelings, validated and normalized challenges. Worked in strategies to manage holidays and remain focused in weight-loss goals. Used problem solving method to address current transportation challenges impacting gym attendance. Praised positive changes around eating behavior. Used CBT-based interventions. RESPONSES: Pt was open and active in session. Responded well to interventions. PLAN: continue meeting on a monthly basis. Patient is cleared but will continue meeting with me on a monhly basis. Presenting Concerns Referral Source P PROVIDER Reason for referral Bariatric surgery. Precipitating Event Obesity, medical issues, decreased physical activity. Assessment & Plan Assessment & Plan (1) Binge eating disorder: Code(s): F50.81 - Binge eating disorder (2) Depression: Code(s): F32.A - Depression, unspecified Plan Follow up after holidays. Next wilmra: 02/12/23 at 10:45am Telehealth Telehealth Location of provider rendering services: other (home office. [place], [place]) Location of patient: address on file Patient Identification confirmed using: Name, : Yes Telehealth method: video Patient verbally consented to treatment: Yes Patient verbally consented to billing insurance company: Yes Patient informed of any privacy concerns related to visit: No Minutes spent on Phone/Video with Pt.: 45 Coding Level of Care Code Established Pt Tele Psytx 45 mins ([id number]) Patient Type Established Diagnoses Binge eating disorder F50.81 Depression F32.A Time Spent (min) 45
== END 2023-01-06 11:45 | disposition home or self-care (01) ==
LOC: HO.HBST 11:16
PROVIDERS: PCP Physician Assistant; Visit Provider Counselor Mental Health
DX: F50.81 Binge eating disorder (principal); F32.A Depression, unspecified
CPT/HCPCS: 90834

== ENCOUNTER → 2023-01-06 11:00 | Outpatient (BNVA) | payer OTHER, SELFPAY | PROVIDERS: PCP Physician Assistant; Visit Provider Counselor Mental Health ==

== ENCOUNTER 2023-02-12 10:45 | Outpatient (AMB) | payer OTHER, SELFPAY ==
--- NOTE | 2023-02-12 10:44 | MHC.WMTHER ---
Intake Intake Visit Reasons: VIDEO BH F/U Allergies No Known Allergies Allergy (Verified 12/17/22 09:31) [facility] Medical History Restrictive lung disease Dyspnea on exertion Surgical History No pertinent past surgical history Family History Father Colon cancer Mother Heart attack, Onset Age: 48 Son Leukemia Social History (Updated 12/17/22 @ 09:35 by Delmer Wilkinson PA-C) Housing: House Alcohol intake: current Alcohol intake frequency: a few times a month Alcohol type: beer Patient Tobacco Use Status: Former Tobacco user Quit Date: 2021 Tobacco use type: Cigarette Years Smoked: 15 +/- e-Cigarette/Vaping Use: Never Used Second Hand Smoke Exposure: No service: No Current occupational status: unemployed Cognitive needs: No Hearing needs: No Vision needs: Yes Behavioral Health Assessment Weight Management Therapy Therapy Notes Details PT presents for a follow up. PT reports he's sad as he has gained weight due to the holidays and stopped attending the gym until 2 days ago. He has gained over 10Lbs INTERVENTIONS Behavioral modification therapy/behavioral activation plan. Identified steps to get back on track. Advised to set alarms for each meal, create a daily schedule in paper and place it in a visible space. Processed factors that contributed to fallback, and worked in a coping plan to tackle this factors. Provider assisted client is setting up next wilmar with Renee Dunham RESPONSE: Pt very open and engaged. Responded well to interventions, showed insight and took responsibility for role in current challenges. MSE within normal limits, not fully assessed as session was over the phone and not video as other times. Assessment & Plan Assessment & Plan (1) Binge eating disorder: Code(s): F50.81 - Binge eating disorder (2) Depression: Code(s): F32.A - Depression, unspecified Plan - Follow up in 4 weeks. Next wilmar 03/12/23 at 10am - phone. - Keep wilmar with Renee on 02/27 at 10:30am / Phone. Telehealth Telehealth Location of provider rendering services: other Location of patient: address on file Patient Identification confirmed using: Name, : Yes Telehealth method: voice only Patient verbally consented to treatment: Yes Patient verbally consented to billing insurance company: Yes Patient informed of any privacy concerns related to visit: No Minutes spent on Phone/Video with Pt.: 45 Coding Level of Care Code Established Pt Tele Psytx 45 mins ([id number]) Patient Type Established Diagnoses Binge eating disorder F50.81 Depression F32.A Time Spent (min) 45
== END 2023-02-19 11:06 | disposition home or self-care (01) ==
PROVIDERS: PCP Physician Assistant; Visit Provider Counselor Mental Health
DX: F50.81 Binge eating disorder (principal); F32.A Depression, unspecified
CPT/HCPCS: 90834

== ENCOUNTER → 2023-02-12 10:45 | Outpatient (BNVA) | payer OTHER, SELFPAY | PROVIDERS: PCP Physician Assistant; Visit Provider Counselor Mental Health ==

== ENCOUNTER 2023-02-20 05:53 | Outpatient (REF) | payer OTHER, SELFPAY ==
[2023-02-20 07:33] LABS: Hematocrit 40.5 % (42.0-52.0); Hemoglobin 13.2 g/dl (14.0-18.0); Mean Corpuscular HGB Conc 32.6 g/dl (31.0-36.0); Mean Corpuscular Hemoglobin 29.3 pg (27.0-33.0); Mean Corpuscular Volume 89.8 fL (80.0-98.0); Mean Platelet Volume 10.7 fL (9.4-12.4); Platelet Count 225 X10*3/uL (160-400); Red Blood Count 4.51 X10*6/uL (4.60-5.80); Red Cell Distribution Width 13.2 % (11.0-16.0); White Blood Count 7.9 X10*3/uL (4.8-10.8)
[2023-02-20 07:46] LABS: Estimated Average Glucose 111 mg/dL; Hemoglobin A1c % 5.5 % (<6.0)
[2023-02-20 08:01] LABS: Alanine Aminotransferase 19 U/L (0-40); Albumin Level 3.9 g/dL (3.5-5.0); Alkaline Phosphatase 76 U/L (39-117); Anion Gap 11 (12-20); Aspartate Amino Transferase 15 U/L (5-37); Bilirubin Total 0.2 mg/dL (0.0-1.0); Blood Urea Nitrogen 14 mg/dL (9-16); Calcium 9.4 mg/dL (8.4-10.2); Carbon Dioxide 29 mmol/L (22-29); Chloride 104 mmol/L (96-108); Cholesterol 146 mg/dL (<200); Estimated Glomerular Filt Rate > 60; Glucose Fasting 97 mg/dL (60-99); HDL Cholesterol 37 mg/dL (>40); LDL Cholesterol Calculated 73 mg/dL (<100); Potassium 4.1 mmol/L (3.3-5.1); Sodium 140 mmol/L (135-145); Total Protein 7.6 g/dL (6.5-8.0); Triglycerides 182 mg/dL (<150)
== END 2023-02-20 05:54 | disposition home or self-care (01) ==
LOC: HO.LAB 05:53
PROVIDERS: PCP Physician Assistant; Visit Provider Physician Assistant
DX: E11.9 Type 2 diabetes mellitus without complications (principal)
CPT/HCPCS: 36415; 80053; 80061; 83036; 85027

== ENCOUNTER 2023-02-26 07:39 | Outpatient (AMB) | payer OTHER, SELFPAY ==
--- NOTE | 2023-02-26 07:52 | MHC.PC.OV ---
Vital Signs 02/26/23 07:58 Height 5 ft 7 in Weight 436 lb 11.771 oz BMI 68.4 BP 108/72 Blood Pressure Location Lt radial Position Sitting Intake Visit Reasons: 10 Week F/U Intake Note: Patient here for a 10 week follow up Management Retail Intern Required: No Accompanied by: Self / Same As Patient Allergies No Known Allergies Allergy (Verified 02/26/23 08:01) Medication List - Last Reconciled 02/26/23 by Delmer Wilkinson PA-C cetirizine 10 mg PO DAILY 90 days cholecalciferol (vitamin D3) 50 mcg PO DAILY dulaglutide (Trulicity) 0.75 mg (0.5 mL) subcut QWEEK 4 weeks fluticasone propionate 50 mcg/actuation 1 spray intranasal DAILY PRN iron,carbonyl-vitamin C 65 mg iron- 125 mg (Vitron-C) 1 tab PO BEDTIME lisinopril 20 mg PO DAILY metoprolol succinate ER 50 mg PO DAILY sennosides (Senna Lax) 17.2 mg (2 x 8.6 mg) PO BEDTIME PRN 90 days tizanidine 4 mg PO TID PRN 30 days vitamin A palmitate 6,000 mcg (2 x 3,000 mcg (10,000 unit)) PO DAILY 90 days Tobacco use date assessed: 02/26/23 Dental Screening Dental Screen Date: 02/26/23 Did you have a dental visit in the last 12 months?: Yes Did you have a dental problem in the last 6 months where you did not have access to dental care?: No Was dental information given to patient?: Patient has dentist HPI 10 Week F/U HPI Details Wally is a 47 year old male here today for a followup visit.? . Patient has a pmhx significant for Morbid obesity, Sleep apnea, chronic knee/ lumbar spine pain, hypertension, major depressive disorder, urinary incontinence. Concern--> has been working hard on being more physically active. Has been walking a lot though does report having lower back pain and bilateral knee pain from his physical activity. PLAN: Will try meloxicam 15 mg daily/p.r.n. to help him reduce his pain so he that he can become more physically active. . Impaired glucose metabolism: Noted most recent A1c has to 5.5 from 6. He has started GLP 1 and denies any significant side effects. ? Morbid obesity:? Has started GLP 1 weekly. Unfortunately gained weight over the holidays due to dietary indiscretion. He plans on getting back on board with his diet..? He has reestablish care with [facility] in has been losing weight.. . ? BRET: Using CPAP on occasion nightly? , is followed by Dr. Zhou.? Headaches since resolved since using CPAP nightly. ? .. ? HTN:? Blood pressure today in office acceptable. He continues on metoprolol and lisinopril with good effect on his blood pressure..? He does monitor his blood pressures at home and does report normal readings.?Denies any vision issues, chest discomforts or headaches.? Laboratory Tests 08/28/22 08/28/22 12/17/22 06:40 06:45 09:24 RBC 4.71 Hgb Creatinine Fasting Glucose 109 H Hgb A1c (Clinic) 6.0 Hemoglobin A1c % Cholesterol 157 LDL Cholesterol, C alc 101 Urine Microalbumin 7.0 02/20/23 02/20/23 06:05 06:05 RBC 4.51 L Hgb 13.2 L Creatinine 0.84 Fasting Glucose Hgb A1c (Clinic) Hemoglobin A1c % 5.5 Cholesterol 146 LDL Cholesterol, C alc 73 Urine Microalbumin [facility] Medical History Restrictive lung disease Dyspnea on exertion Surgical History No pertinent past surgical history Family History Father Colon cancer Mother Heart attack, Onset Age: 48 Son Leukemia Social History Housing: House Alcohol intake: current Alcohol intake frequency: a few times a month Alcohol type: beer Patient Tobacco Use Status: Former Tobacco user Quit Date: 2021 Tobacco use type: Cigarette Years Smoked: 15 +/- e-Cigarette/Vaping Use: Never Used Second Hand Smoke Exposure: No service: No Current occupational status: unemployed Cognitive needs: No Hearing needs: No Vision needs: Yes Questionnaire PHQ-9 Over the last 2 weeks, how often have you been bothered by any of the following problems? 1. Little interest or pleasure in doing things: not at all 2. Feeling down, depressed, or hopeless: not at all 3. Trouble falling or staying asleep, or sleeping too much: not at all 4. Feeling tired or having little energy: not at all 5. Poor appetite or overeating: not at all 6. Feeling bad about yourself - or that you are a failure or have let yourself or your family down: not at all 7. Trouble concentrating on things, such as reading the newspaper or watching television: not at all 8. Moving or speaking so slowly that other people could have noticed. Or the opposite - being so fidgety or restless that you have been moving around a lot more than usual: not at all 9. Thoughts that you would be better off or of hurting yourself in some way: not at all Total score: 0 Depression Screening Interpretation: Negative Depression Screening Done: Yes 18281 - PHQ-9 Billing: Yes Source: Developed by Drs. Christopher Vazquez, Majo Blanca, Compa No and colleagues, with an educational kassidy from [employer] ([place]). Thrive Questionnaire Date Thrive assessed: 02/26/23 I am a: Patient What is your living situation today?: I have a steady place to live Within the past 12 months, did the food you bought not last and you didn't have the money to get more?: Never true Within the past 12 months, did you worry whether your food would run out before you got money to buy more?: Never true Do you have trouble paying for medicines?: No Do you have trouble getting transportation to medical appointments?: No Do you have trouble paying your heating and electricity bill?: No Do you have trouble taking care of your child, family member or friend?: No Do you have trouble with day-to-day activities such as bathing, preparing meals, shopping, managing finances, etc.?: No Are you currently unemployed and looking for a job?: No Are you interested in more education?: No Please select the resources that you would like help with: None Currently or been in a relationship where the following occur: no concerns reported AUDIT C Alcohol Use Questionnaire (AUDIT-C) 1. How often do you have a drink containing alcohol?: Monthly or less 2. How many drinks containing alcohol do you have on a typical day when you are drinking?: 1 or 2 3. How often do you have six or more drinks on one occasion?: Never Total Score: 1 HEAVENLY-7 AMB Questionnaire HEAVENLY-7 Date HEAVENLY - 7 assessed: 02/26/23 Feeling nervous, anxious, or on edge: 0 = Not at all Not being able to stop or control worryin = Not at all Worrying too much about different things: 0 = Not at all Trouble relaxin = Not at all Being so restless that it is hard to sit still: 0 = Not at all Becoming easily annoyed or irritable: 0 = Not at all Feeling afraid as if something awful might happen: 0 = Not at all Total HEAVENLY-7 score (0-4 normal; 5-9 mild; 10-14 moderate; 15-21 severe): 0 Source: Developed by Drs. Christopher Vazquez, Majo Blanca, Compa No and colleagues, with an educational kassidy from [employer] ([place]). HEAVENLY-7 Assessment Billing HEAVENLY-7 Assessment Tool: HEAVENLY-7 Assessment 54539 Review of Systems Const Denies headache(s) Eyes Denies loss of vision ENT Denies vertigo, Denies dizziness, Denies headache(s) and Denies sore throat Card Denies chest pain, Denies leg edema and Denies lightheadedness Resp Denies cough, Denies hemoptysis and Denies wheezing GI Denies abdominal pain, Denies melena, Denies constipation, Denies diarrhea and Denies vomiting Denies dysuria, Denies urinary frequency and Denies urinary urgency Musc Denies arthralgias, Denies joint swelling, Denies numbness and Denies tingling Neuro Denies Abnormal speech present, Denies behavioral changes, Denies vertigo, Denies dizziness, Denies headache(s), Denies loss of vision, Denies memory loss, Denies numbness and Denies tingling Psych Denies anxiety, Denies behavioral changes, Denies depression, Denies memory loss and Denies panic attacks Kyree/Lymph Denies easy bleeding and Denies easy bruising Aller/Immun Denies wheezing Physical exam (Primary Care) BMI Assessment/Plan discussion: High Tobacco/Smoking Status: Tobacco use Status Tobacco use date assessed 05/13/22 02/26/23 07:52 Patient Tobacco Use Status Former Tobacco user 02/26/23 07:52 Tobacco use type Cigarette 02/26/23 07:52 e-Cigarette/Vaping Use Never Used 02/26/23 07:52 Depression Screening Interpretation: Negative Thrive Assessment: Date of Thrive Assessment Date Thrive assessed 05/13/22 02/26/23 07:52 Currently or been in a relationship where the following occur: no concerns reported Const Other: OBESE General: healthy appearing, no acute distress, alert and awake Nutritional Appearance: well nourished Orientation/consciousness: oriented to person, oriented to place and oriented to time HENMT Ears: TM's normal bilaterally General nose exam: Normal nasal mucous membranes and turbinates present Eyes Conjunctivae: conjunctivae normal Sclerae: sclerae normal Pupils: Equal, round and reactive pupils present Neck Neck: Yes no lymphadenopathy and Yes no JVD Thyroid: Thyroid normal Carotids: no bruits Resp Effort & Inspection: normal respiratory effort and not tachypneic Auscultation: no crackles, no rales, no rhonchi and no wheezes Cardio Rate: regular rate Rhythm: regular rhythm Heart sounds: no murmurs and normal S1 and S2 GI Palpation (GI): Soft to palpation, nontender, no hepatomegaly and no splenomegaly Auscultation: normal bowel sounds Skin General skin exam: no rashes or lesions noted and dry skin Neuro General: oriented to person, oriented to place and oriented to time Cranial nerves: Yes Equal, round and reactive pupils present Speech: No Abnormal speech present Gait exam (Neuro): Normal gait present Motor exam (neuro): no tremor noted Extrem Right upper extremity: full ROM Left upper extremity: full ROM Right lower extremity: full ROM; no edema Left lower extremity: full ROM; no edema Psych Mental Status: mental status grossly normal Speech and movement: Normal speech and movement present Affect: normal affect Attitude: cooperative Thought process: Normal thought process present Assessment and Plan Assessment & Plan (1) Morbid obesity: Code(s): E66.01 - Morbid (severe) obesity due to excess calories Plan: Patient continues to follow [facility] program. Gained weight since last office visit due to dietary indiscretion over the holidays. He admits he has a problem with eating. Does have a mental therapist he speaks too. We have started GLP 1 though unfortunately has not noted any weight loss. He plans on getting more physically active He anticipates weight loss surgery- reports he needs to get his weight to about 360 lb. (2) HTN (hypertension): Comment: Stable Code(s): I10 - Essential (primary) hypertension Qualifiers: Hypertension type: essential hypertension Qualified Code(s): I10 - Essential (primary) hypertension Plan: Patient's blood pressure acceptable today in office, will continue his current dose of antihypertensive medication with goal blood pressure to be below 140/90 (3) BRET on CPAP: Comment: BRET is well treated with the application of CPAP, pressure of 16 cm. using Nasal Pillows HE IS VERY COMPLIANT AND BENEFITING.. COMMENDED FOR HIS GOOD COMPLIANCE AND ENCOURAGED TO KEEP ON USING THE CPAP REGULARLY. Code(s): G47.33 - Obstructive sleep apnea (adult) (pediatric); Z99.89 - Dependence on other enabling machines and devices Plan: Continues to be compliant with his CPAP machine on a nightly basis. (4) Impaired glucose metabolism: Code(s): R73.09 - Other abnormal glucose Plan: Most recent A1c at 5.5 from 6.0 Has started on GLP 1. Orders: Orders Prostate Specific Antigen Scr Today E11.9 - Type 2 diabetes mellitus without complications, Z12.5 - Encounter for screening for malignant neoplasm of prostate Medications: New dulaglutide (Trulicity) 1.5 mg (0.5 mL) subcut QWEEK 4 weeks 2 mL 3RF E11.9 - Type 2 diabetes mellitus without complications, E66.01 - Morbid (severe) obesity due to excess calories meloxicam 15 mg PO DAILY 30 days 30 tabs 1RF M17.0 - Bilateral primary osteoarthritis of knee Discontinued dulaglutide (Trulicity) Discontinued Reason: Doctor's Order 0.75 mg (0.5 mL) subcut QWEEK 4 weeks 2 mL 1RF E11.9 - Type 2 diabetes mellitus without complications Coding Level of Care Code Est Pt Level 4 (82551) Diagnoses Morbid obesity E66.01 Essential hypertension I10 Hypertension type: essential hypertension BRET on CPAP G47.33; Z99.89 Impaired glucose metabolism R73.09 Additional Codes HEAVENLY-7 Assessment Billing - HEAVENLY-7 Assessment Tool: HEAVENLY-7 Assessment 68401 ([id number])
[2023-02-26 07:58] VITALS: BP 108/72; BMI 68.4
== END 2023-02-26 08:19 | disposition home or self-care (01) ==
PROVIDERS: PCP Physician Assistant; Visit Provider Physician Assistant
DX: I10 Essential (primary) hypertension (principal); E66.01 Morbid (severe) obesity due to excess calories; Z68.44 Body mass index [BMI] 60.0-69.9, adult; E11.9 Type 2 diabetes mellitus without complications; G47.33 Obstructive sleep apnea (adult) (pediatric); Z99.89 Dependence on other enabling machines and devices; R73.09 Other abnormal glucose; F17.210 Nicotine dependence, cigarettes, uncomplicated
CPT/HCPCS: 99214

== ENCOUNTER 2023-02-27 10:30 | Outpatient (AMB) | payer OTHER, SELFPAY ==
--- NOTE | 2023-02-27 10:49 | A.OFFVIS_ITS ---
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 States he went back to old eating habits and has gained weight. Holidays were hard for him. He restarted last week: 6am -shake - Pure protein RTD 9am - shake 12pm - bar 3pm - shake 5pm - 14 forks protein and vegetable 8pm- shake Restarted exercise last week - 5 d/week - treadmill - 415 calories Pre op work up completed as follows: [facility] classes - appts ? - Finding these visits helpful, 12/09 last appt, scheduled for every 4 weeks with Wendy. [facility] appts - follow up on 10/02, cleared H pylori - negative Labs, - anemia vit a and D ECG - normal, cardiac cath 2.5 years ago CXR - normal ECHO - Impression: 1.? Myocardial perfusion imaging study s hows equivocal for small area of inferoapical ischemia 2.? Gated LVEF is not obtained 3. Transient ischemic dilatation not pre sent?EKG is nondiagnostic for ischemia Cardiac stress test Pharmacological stress test with Lexiscan injection while sitting and kicking his legs, without anginal symptoms, without arrhythmias, with normotensive response to injection, without EKG changes. Nuclear images pending. Test reviewed with Dr. Tolbert. ULS - fatty liver, L 21 cms, 17 cms, hepatomegaly UGI - normal 09/25 - cardiac clearance by Dr Louie - low to intermediate risk.?? PFSH Medical History Restrictive lung disease Dyspnea on exertion Surgical History No pertinent past surgical history Family History Father Colon cancer Mother Heart attack, Onset Age: 48 Son Leukemia Social History Housing: House Alcohol intake: current Alcohol intake frequency: a few times a month Alcohol type: beer Patient Tobacco Use Status: Former Tobacco user Quit Date: 2021 Tobacco use type: Cigarette Years Smoked: 15 +/- e-Cigarette/Vaping Use: Never Used Second Hand Smoke Exposure: No service: No Current occupational status: unemployed Cognitive needs: No Hearing needs: No Vision needs: Yes Assessment & Plan Assessment & Plan (1) Morbid obesity: Code(s): E66.01 - Morbid (severe) obesity due to excess calories Plan: Pt went off meal plan and stopped exercising through the holidays and gained 13 lbs. He restarted last week and now understands how these liefe time lifestyle changes are essential for continued weight loss. Still working with Renetta. Will switch to Pure protein powder with water or [facility] now Still has not sent me weights electronically. Will discuss with Jorge today and send me weights every Friday. Next appt in 3 weeks. Patient is still morbidly obese and is not considered stable at this time. I spent 28 minutes in total speaking with the patient via video conference counseling , reviewing records and charting in patients chart. . Telehealth Telehealth Location of provider rendering services: practice address Location of patient: address on file Patient Identification confirmed using: Name, : Yes Telehealth method: video Patient verbally consented to treatment: Yes Patient verbally consented to billing insurance company: Yes Patient informed of any privacy concerns related to visit: Yes Coding Level of Care Code Tele Est Pt Level 4 (42648) Diagnoses Morbid obesity E66.01
[2023-02-27 10:56] VITALS: BMI 67.2
== END 2023-02-27 11:07 | disposition home or self-care (01) ==
LOC: HO.HBS 10:53
PROVIDERS: PCP Physician Assistant; Visit Provider Physician Assistant
DX: E66.01 Morbid (severe) obesity due to excess calories (principal)
CPT/HCPCS: 99214

== ENCOUNTER → 2023-02-27 10:30 | Outpatient (BNVA) | payer OTHER, SELFPAY | PROVIDERS: PCP Physician Assistant; Visit Provider Physician Assistant ==

== ENCOUNTER 2023-03-12 10:00 | Outpatient (AMB) | payer OTHER, SELFPAY ==
--- NOTE | 2023-03-12 10:06 | A.OFFWM_ITS ---
Intake Intake Visit Reasons: VIDEO BH F/U Allergies No Known Allergies Allergy (Verified 02/26/23 08:01) [facility] Medical History Restrictive lung disease Dyspnea on exertion Surgical History No pertinent past surgical history Family History Father Colon cancer Mother Heart attack, Onset Age: 48 Son Leukemia Social History Housing: House Alcohol intake: current Alcohol intake frequency: a few times a month Alcohol type: beer Patient Tobacco Use Status: Former Tobacco user Quit Date: 2021 Tobacco use type: Cigarette Years Smoked: 15 +/- e-Cigarette/Vaping Use: Never Used Second Hand Smoke Exposure: No service: No Current occupational status: unemployed Cognitive needs: No Hearing needs: No Vision needs: Yes Behavioral Health Assessment Weight Management Therapy Therapy Notes Details PT presents for a follow up. He was seen by Renee on 02/27, protein shake brand changed. PT presents sick today and stated that he is struggling with Sx of seasonal-depression. INTERVENTIONS -Worked on CBT and cognitive restructuri ng to prevent getting into old behavioral patterns and remain engaged and committed with own personal goals and weight-loss journey. -Identified barriers and supports. Compl eted ABC analysis for current triggers and have alternative responses. For example Weather is a trigger, response: less activity. Alternative: use available supports, for Example: share with partner struggles and create a plan for support like workout together. -Processed other barriers and sources of stress. Validated and normalized feelings. -Reviewed coping strategies such as beha vioral activation plan and, mindfulness exercises. RESPONSE/PLAN Patient was very active and engaged. He reflected on his own role to achieve goals and seemed committed with weight-loss goals. We will continue meeting every 4-5 weeks for support. Assessment & Plan Assessment & Plan (1) Binge eating disorder: Code(s): F50.81 - Binge eating disorder (2) Depression: Code(s): F32.A - Depression, unspecified Plan Continue meeting on a monthly basis for support. Next wilmar: 04/16/23 at 9am/video Telehealth Telehealth Location of provider rendering services: other Location of patient: address on file Patient Identification confirmed using: Name, : Yes Telehealth method: video Patient verbally consented to treatment: Yes Patient verbally consented to billing insurance company: Yes Patient informed of any privacy concerns related to visit: No Minutes spent on Phone/Video with Pt.: 55 Coding Level of Care Code Established Pt Tele Psytx >53 mins (36311) Patient Type Established Diagnoses Binge eating disorder F50.81 Depression F32.A Time Spent (min) 55
== END 2023-03-12 10:45 | disposition home or self-care (01) ==
LOC: HO.HBST 10:19
PROVIDERS: PCP Physician Assistant; Visit Provider Counselor Mental Health
DX: F50.81 Binge eating disorder (principal); F32.A Depression, unspecified
CPT/HCPCS: 90837

== ENCOUNTER → 2023-03-12 10:00 | Outpatient (BNVA) | payer OTHER, SELFPAY | PROVIDERS: PCP Physician Assistant; Visit Provider Counselor Mental Health ==

== ENCOUNTER 2023-07-28 10:39 | Outpatient (AMB) | payer OTHER, SELFPAY ==
--- NOTE | 2023-07-28 10:43 | A.OFFPC_ITS ---
Vital Signs 07/28/23 10:51 Height 5 ft 7 in Weight 462 lb 4.949 oz BMI 72.4 BP 132/84 Blood Pressure Location Lt brachial Position Sitting Pulse 67 Pulse Source Pulse Oximeter Pulse Oximetry (%) 97 Oxygen Delivery Method Room Air Intake Visit Reasons: f/u weight management Water Reuse Program Manager Required: No Accompanied by: Self / Same As Patient Allergies No Known Allergies Allergy (Verified 07/28/23 11:09) Medication List - Last Reconciled 07/28/23 by Delmer Wilkinson PA-C cetirizine 10 mg PO DAILY 90 days cholecalciferol (vitamin D3) 50 mcg PO DAILY dulaglutide (Trulicity) 0.75 mg (0.5 mL) subcut QWEEK 4 weeks fluticasone propionate 50 mcg/actuation 1 spray intranasal DAILY PRN iron,carbonyl-vitamin C 65 mg iron- 125 mg (Vitron-C) 1 tab PO BEDTIME lisinopril 20 mg PO DAILY meloxicam 15 mg PO DAILY 30 days metoprolol succinate ER 50 mg PO DAILY sennosides (Senna Lax) 17.2 mg (2 x 8.6 mg) PO BEDTIME PRN 90 days tizanidine 4 mg PO TID PRN 30 days vitamin A palmitate 6,000 mcg (2 x 3,000 mcg (10,000 unit)) PO DAILY 90 days Tobacco use date assessed: 02/26/23 Dental Screening Dental Screen Date: 02/26/23 HPI f/u weight management HPI Details Wally is a 47 year old male here today for a followup visit.? . Patient has a pmhx significant for Morbid obesity, Sleep apnea, chronic knee/ lumbar spine pain, hypertension, major depressive disorder, ., Concern--> continues to romo with weight. Was followed with the [facility] program though has lost follow-up again. He reports he has been dealing with depression every year in the spring which causes him to over 8. Of note he was on Trulicity though had some difficulty finding it from the pharmacy. He is willing to try an alternative GLP 1 . Impaired glucose metabolism: Noted most recent A1c has to 5.5 from 6. He has started GLP 1 and denies any significant side effects. ? Morbid obesity:? Unfortunately gained weight over the holidays due to dietary indiscretion. He plans on getting back on board with his diet..? He has reestablish care with [facility] in has been losing weight.. . ? BRET: Using CPAP on occasion nightly? , is followed by Dr. Zhou.? Headaches since resolved since using CPAP nightly. ? .. ? HTN:? Blood pressure today in office acceptable. He continues on metoprolol and lisinopril with good effect on his blood pressure..? He does monitor his blood pressures at home and does report normal readings.?Denies any vision issues, chest discomforts or headaches.? [facility] Medical History Restrictive lung disease Dyspnea on exertion Surgical History No pertinent past surgical history Family History Father Colon cancer Mother Heart attack, Onset Age: 48 Son Leukemia Social History Housing: House Alcohol intake: current Alcohol intake frequency: a few times a month Alcohol type: beer Patient Tobacco Use Status: Former Tobacco user Tobacco use type: Cigarette Years Smoked: 15 +/- e-Cigarette/Vaping Use: Never Used Second Hand Smoke Exposure: No service: No Current occupational status: unemployed Cognitive needs: No Hearing needs: No Vision needs: Yes Questionnaire Thrive Questionnaire Date Thrive assessed: 02/26/23 HEAVENLY-7 AMB Questionnaire HEAVENLY-7 Date HEAVENLY - 7 assessed: 02/26/23 Source: Developed by Drs. Christopher Vazquez, Majo Blanca, Compa No and colleagues, with an educational kassidy from [employer]. Review of Systems Const Denies headache(s) Eyes Denies loss of vision ENT Denies vertigo, Denies dizziness, Denies headache(s) and Denies sore throat Card Denies chest pain, Denies leg edema and Denies lightheadedness Resp Denies cough, Denies hemoptysis and Denies wheezing GI Denies abdominal pain, Denies melena, Denies constipation, Denies diarrhea and Denies vomiting Denies dysuria, Denies urinary frequency and Denies urinary urgency Musc Denies arthralgias, Denies joint swelling, Denies numbness and Denies tingling Neuro Denies Abnormal speech present, Denies behavioral changes, Denies vertigo, Denies dizziness, Denies headache(s), Denies loss of vision, Denies memory loss, Denies numbness and Denies tingling Psych Denies anxiety, Denies behavioral changes, Denies depression, Denies memory loss and Denies panic attacks Kyree/Lymph Denies easy bleeding and Denies easy bruising Aller/Immun Denies wheezing Physical exam (Primary Care) Vital Signs: Last Vital Signs Pulse 67 07/28/23 10:51 BP 132/84 07/28/23 10:51 Pulse Ox 97 07/28/23 10:51 Oxygen Delivery Method Room Air 07/28/23 10:51 BMI result Body Mass Index 72.4 BMI Assessment/Plan discussion: High BMI High, discussed plan: lifestyle, weight reduction, dietary and physical activity Tobacco/Smoking Status: Tobacco use Status Tobacco use date assessed 02/26/23 07/28/23 10:43 Patient Tobacco Use Status Former Tobacco user 07/28/23 10:43 Tobacco use type Cigarette 07/28/23 10:43 e-Cigarette/Vaping Use Never Used 07/28/23 10:43 Thrive Assessment: Date of Thrive Assessment Date Thrive assessed 02/26/23 07/28/23 10:43 Const Other: MORBIDLY OBESE General: no acute distress, alert and awake Nutritional Appearance: well nourished Orientation/consciousness: oriented to person, oriented to place and oriented to time HENMT Ears: TM's normal bilaterally General nose exam: Normal nasal mucous membranes and turbinates present Eyes Conjunctivae: conjunctivae normal Sclerae: sclerae normal Pupils: Equal, round and reactive pupils present Neck Neck: Yes no lymphadenopathy and Yes no JVD Thyroid: Thyroid normal Carotids: no bruits Resp Effort & Inspection: normal respiratory effort and not tachypneic Auscultation: no crackles, no rales, no rhonchi and no wheezes Cardio Rate: regular rate Rhythm: regular rhythm Heart sounds: no murmurs and normal S1 and S2 GI Palpation (GI): Soft to palpation, nontender, no hepatomegaly and no splenomegaly Auscultation: normal bowel sounds Skin General skin exam: no rashes or lesions noted and dry skin Neuro General: oriented to person, oriented to place and oriented to time Cranial nerves: Yes Equal, round and reactive pupils present Speech: No Abnormal speech present Gait exam (Neuro): Normal gait present Motor exam (neuro): no tremor noted Extrem Right upper extremity: full ROM Left upper extremity: full ROM Right lower extremity: full ROM; no edema Left lower extremity: full ROM; no edema Psych Mental Status: mental status grossly normal Speech and movement: Normal speech and movement present Affect: normal affect Attitude: cooperative Thought process: Normal thought process present Assessment and Plan Assessment & Plan (1) Morbid obesity: Code(s): E66.01 - Morbid (severe) obesity due to excess calories Plan: Patient continues to follow [facility] program. Gained weight since last office visit due to dietary indiscretion over the holidays. He admits he has a problem with eating. Does have a mental therapist he speaks too. Has had difficulty finding Trulicity from the pharmacy He is willing to try an alternative GLP 1 He plans on getting more physically active (2) HTN (hypertension): Comment: Stable Code(s): I10 - Essential (primary) hypertension Qualifiers: Hypertension type: essential hypertension Qualified Code(s): I10 - Essential (primary) hypertension Plan: Patient's blood pressure acceptable today in office, will continue his current dose of antihypertensive medication with goal blood pressure to be below 140/90 (3) BRET on CPAP: Comment: BRET is well treated with the application of CPAP, pressure of 16 cm. using Nasal Pillows HE IS VERY COMPLIANT AND BENEFITING.. COMMENDED FOR HIS GOOD COMPLIANCE AND ENCOURAGED TO KEEP ON USING THE CPAP REGULARLY. Code(s): G47.33 - Obstructive sleep apnea (adult) (pediatric); Z99.89 - Dependence on other enabling machines and devices Plan: Continues to be compliant with his CPAP machine on a nightly basis. (4) Impaired glucose metabolism: Code(s): R73.09 - Other abnormal glucose Plan: Most recent A1c at 5.5 from 6.0 Has been having a difficult time getting Trulicity-will try alternative GLP 1 (5) Acute hemorrhoid: Code(s): K64.9 - Unspecified hemorrhoids Plan: Reports over the last couple of weeks having symptomatic hemorrhoids and bright red blood per rectum. Has preparation H available to him. Advised on Sitz bath s and use of stool softener Orders: Orders Complete Blood Count no Diff 07/28/23 I10 - Essential (primary) hypertension Comprehensive [place]. Panel Fast 07/28/23 I10 - Essential (primary) hypertension Prostate Specific Antigen Scr 07/28/23 I10 - Essential (primary) hypertension, Z12.5 - Encounter for screening for malignant neoplasm of prostate Medications: New semaglutide (weight loss) (Wegovy) administer weeks 1 through 4 of therapy 0.25 mg (0.5 mL) subcut QWEEK 2 mL 0RF 4 weeks E66.01 - Morbid (severe) obesity due to excess calories, G47.33 - Obstructive sleep apnea (adult) (pediatric), I10 - Essential (primary) hypertension, Z99.89 - Dependence on other enabling machines and devices Refilled sennosides (Senna Lax) 17.2 mg (2 x 8.6 mg) PO BEDTIME PRN 180 tabs 2RF constipation 90 days K59.09 - Other constipation Discontinued dulaglutide (Trulicity) Discontinued Reason: Doctor's Order 0.75 mg (0.5 mL) subcut QWEEK 4 weeks 2 mL 3RF E11.9 - Type 2 diabetes mellitus without complications Patient Instructions: Goal: Blood pressure to remain below 140/90 Barriers: Adherence to physical activity and healthy eating habits Coding Level of Care Code Est Pt Level 4 (56407) Complex EM visit Add On G2211 Diagnoses Morbid obesity E66.01 Essential hypertension I10 Hypertension type: essential hypertension BRET on CPAP G47.33; Z99.89 Impaired glucose metabolism R73.09 Acute hemorrhoid K64.9
[2023-07-28 10:51] VITALS: BP 132/84; PULSE 67; O2SAT 97; BMI 72.4
== END 2023-07-28 11:26 | disposition home or self-care (01) ==
PROVIDERS: PCP Physician Assistant; Visit Provider Physician Assistant
DX: E66.01 Morbid (severe) obesity due to excess calories (principal); Z68.45 Body mass index [BMI] 70 or greater, adult; G47.33 Obstructive sleep apnea (adult) (pediatric); Z99.89 Dependence on other enabling machines and devices; R73.09 Other abnormal glucose; K64.9 Unspecified hemorrhoids
CPT/HCPCS: 99214; G2211

== ENCOUNTER 2023-08-07 09:48 | Outpatient (AMB) | payer OTHER, SELFPAY ==
[2023-08-07 09:55] VITALS: BP 112/82; PULSE 69; O2SAT 96; BMI 72.5
--- NOTE | 2023-08-07 09:55 | A.OFFVIS_ITS ---
Vital Signs 08/07/23 09:55 Height 5 ft 7 in Weight 462 lb 15.532 oz BMI 72.5 BP 112/82 Blood Pressure Location Lt radial Position Sitting Pulse 69 Pulse Source Pulse Oximeter Pulse Oximetry (%) 96 Oxygen Delivery Method Room Air Intake Visit Reasons: Obstructive sleep apnea Intake Note: pt is here for follow up of BRET and doing good, was out of state for a while , helping sick son in [place]. Help Desk Internship Required: No Allergies No Known Allergies Allergy (Verified 08/07/23 10:03) Do you need a note to return to daycare/school/sports/work: No HPI HPI Obstructive sleep apnea: Details: Caprice villalobos is 47 years old very pleasant gentleman with super morbid obesity. He is a case of obstructive sleep apnea and has been on CPAP therapy. He is using CPAP very regularly, and sleeps well. Unfortunately he has gained lot of weight, now up to BMI of 72.5 . He states that he went to [place] to stay with his son who was diagnosed to have acute leukemia, treated with bone marrow transplant, successfully . There he was eating excessively , and gained all his weight back. He has no issues with the mask or CPAP device. [facility] Medical History Restrictive lung disease Dyspnea on exertion Surgical History No pertinent past surgical history Family History Father Colon cancer Mother Heart attack, Onset Age: 48 Son Leukemia Social History Housing: House Alcohol intake: current Alcohol intake frequency: a few times a month Alcohol type: beer Patient Tobacco Use Status: Former Tobacco user Tobacco use type: Cigarette Years Smoked: 15 +/- e-Cigarette/Vaping Use: Never Used Second Hand Smoke Exposure: No service: No Current occupational status: unemployed Cognitive needs: No Hearing needs: No Vision needs: Yes Review of Systems Const All systems reviewed & are unremarkable except as noted in HPI and below Eyes Reports no additional complaints ENT Reports nasal congestion (Mild intermittent) Card Denies chest pain, Denies irregular heart rhythm and Reports dyspnea on exertion Resp Reports dyspnea on exertion and Reports wheezing (Occasion) GI Reports no additional complaints Reports no additional complaints Musc Reports back pain Skin/Breast Reports system reviewed and no additional complaints, except as documented Neuro Reports no additional complaints Psych Reports no additional complaints Aller/Immun Reports wheezing (Occasion) Physical Exam He is grossly overweight, with a large round face, Const General: comfortable, no acute distress, alert and awake Orientation/consciousness: patient oriented x3 HEENT Head: Yes normal to inspection General nose exam: No nasal polyps present and No nasal discharge present Face and sinus: Yes sinuses nontender Mouth: oropharynx abnormals (Very narrow and crowded oropharynx, Mallampati class 4) Throat: Yes posterior oropharynx normal Eyes General: appearance normal, both eyes and all related structures Neck Neck: Yes normal visual inspection, Yes no lymphadenopathy, Yes trachea midline, Yes no JVD and Yes other (Grossly obese) Thyroid: Thyroid normal Chest Chest palpation & inspection: normal inspection of the chest, normal palpation of entire chest wall and no tenderness Resp Other: Percussion note is not perceptible, breath sounds are very distant, But no wheezes rhonchi or crepitations are heard . Cardio Palpation: normal PMI Rate: regular rate Rhythm: regular rhythm Heart sounds: no gallops and no murmurs Peripheral pulses: Peripheral pulses 2+ throughout GI Palpation (GI): Soft to palpation, nontender, No hepatosplenomegaly present, no masses and Other GI palpation findings present (Abdomen grossly obese and protuberant) Auscultation: normal bowel sounds Back/Spine/Pelvis Thoracic/Lumbar Spine: thoracic and lumbar spine normal to inspection and thoraco-lumbar ROM limited Skin General skin exam: no rashes or lesions noted Neuro General: patient oriented x3 and no focal motor deficits Cranial nerves: Yes CN's II-XII intact bilaterally Extrem General: Yes normal to inspection, Yes no clubbing, cyanosis or edema and Yes no calf tenderness Psych Appearance: grossly normal and well kempt Speech and movement: Normal speech and movement present Results Reviewed Results Reviewed: CPAP compliance report is reviewed he has used 30/30 nights, 100%. Average use it per night 9 hours 16 minutes. Residual AHI 0.8, and there is no significant air leak Assessment & Plan Assessment & Plan (1) Morbid obesity: Comment: He has super morbid obesity, significant weight gain lately, current BMI 72.5 Code(s): E66.01 - Morbid (severe) obesity due to excess calories Category: Surgical Plan: Counseled, advised to restart follow-up in the weight management program. Risks of super morbid obesity are explained to him and he is fully aware of that. (2) BRET on CPAP: Comment: BRET is well treated with the application of CPAP, pressure of 16 cm. using Nasal Pillows HE IS VERY COMPLIANT AND BENEFITING.. Code(s): G47.33 - Obstructive sleep apnea (adult) (pediatric); Z99.89 - Dependence on other enabling machines and devices Category: Medical Plan: Commended for good compliance and advised to continue using CPAP regularly every night. (3) Restrictive lung disease: Comment: THIS IS MAINLY BECAUSE OF HIS MORBID OBESITY, EXPLAINED ABOUT THIS, HE SHOULD TRY TO DO DEEP BREATHING EXERCISES 2 OR 3 TIMES A DAY. THERE IS NO EVIDENCE OF OBSTRUCTIVE AIRWAY DISORDER, OCCASIONAL WHEEZING SOUND MAY BE DUE TO NARROW UPPER AIRWAYS. EXPLAINED TO HIM IN DETAIL Code(s): J98.4 - Other disorders of lung Category: Medical Plan: Stressed need to lose weight. Do deep breathing exercises 3 times a day. Coding Level of Care Code Est Pt Level 3 (09275) Diagnoses Morbid obesity E66.01 BRET on CPAP G47.33; Z99.89 Restrictive lung disease J98.4
== END 2023-08-07 10:03 | disposition home or self-care (01) ==
PROVIDERS: PCP Physician Assistant; Visit Provider Internal Medicine
DX: E66.01 Morbid (severe) obesity due to excess calories (principal); G47.33 Obstructive sleep apnea (adult) (pediatric); Z99.89 Dependence on other enabling machines and devices; J98.4 Other disorders of lung
CPT/HCPCS: 99213

== ENCOUNTER → 2023-08-07 09:48 | Outpatient (BNVA) | payer OTHER, SELFPAY | PROVIDERS: PCP Physician Assistant; Visit Provider Internal Medicine | DX: G47.33 Obstructive sleep apnea (adult) (pediatric) (principal); E66.01 Morbid (severe) obesity due to excess calories; J98.4 Other disorders of lung; Z99.89 Dependence on other enabling machines and devices; Z68.45 Body mass index [BMI] 70 or greater, adult | CPT/HCPCS: 99212 ==

== ENCOUNTER 2023-09-24 09:09 | Outpatient (AMB) | payer OTHER, SELFPAY ==
[2023-09-24 09:23] VITALS: BP 140/80; PULSE 65; BMI 72.5
--- NOTE | 2023-09-24 09:23 | MHC.OFFVIS ---
Vital Signs 09/24/23 09:23 Height 5 ft 7 in Weight 462 lb 15.532 oz BMI 72.5 BP 140/80 H Blood Pressure Location Lt radial Position Sitting Pulse 65 Pulse Source Monitor Intake Visit Reasons: 1 yr f/up Intake Note: 1 yr f/up- pt is doing fine Insurance Collector Required: No Accompanied by: Self / Same As Patient Allergies No Known Allergies Allergy (Verified 08/07/23 10:03) Medication List - Last Reconciled 09/24/23 by Jun Romero MD cetirizine 10 mg PO DAILY 90 days cholecalciferol (vitamin D3) 50 mcg PO DAILY fluticasone propionate 50 mcg/actuation 1 spray intranasal DAILY PRN iron,carbonyl-vitamin C 65 mg iron- 125 mg (Vitron-C) 1 tab PO BEDTIME lisinopril 20 mg PO DAILY meloxicam 15 mg PO DAILY 30 days metoprolol succinate ER 50 mg PO DAILY semaglutide (weight loss) (Wegovy) 0.25 mg (0.5 mL) subcut QWEEK 4 weeks sennosides (Senna Lax) 17.2 mg (2 x 8.6 mg) PO BEDTIME PRN 90 days tizanidine 4 mg PO TID PRN 30 days HPI Comments Details: Pleasant 47-year-old gentleman with morbid obesity here for follow-up. Blood pressure control is good. He is denying any chest discomfort. He is saying he is back in to exercise and has been regularly exercising and has lost some weight. Denying any worsening shortness of breath. Overall clinically stable. He previously had exercise stress testing which was abnormal and underwent cardiac catheterization which showed no coronary artery disease. 09/25/2022: He is here for perioperative cardiovascular risk assessment. He previously was following with bariatric surgery but developed depression and decided not to undergo bariatric surgery. He is now returning and has been following closely with weight management program. He has lost a lot of weight with diet and exercise this point. Denying any chest discomfort. Blood pressure control is also good at this point. He is motivated what weight loss and is seriously considering bariatric surgery at this point. : He returns for follow-up. He has been using Wegovy but he has not lost any weight. His blood pressure is elevated. He previously was on a thiazide diuretic but it appears he has not been on that recently. Denying any chest pain or shortness of breath. [facility] Medical History Restrictive lung disease Dyspnea on exertion Surgical History No pertinent past surgical history Family History Father Colon cancer Mother Heart attack, Onset Age: 48 Son Leukemia Social History Housing: House Alcohol intake: current Alcohol intake frequency: a few times a month Alcohol type: beer Patient Tobacco Use Status: Former Tobacco user Tobacco use type: Cigarette Years Smoked: 15 +/- e-Cigarette/Vaping Use: Never Used Second Hand Smoke Exposure: No service: No Current occupational status: unemployed Cognitive needs: No Hearing needs: No Vision needs: Yes Physical Exam Vital Signs: Last Vital Signs Pulse 65 09/24/23 09:23 BP 140/80 H 09/24/23 09:23 BMI result Body Mass Index 72.5 GENERAL APPEARANCE: in no acute distress, morbidly obese. NECK/THYROID: no carotid bruit, no jugular venous distention. SKIN: no suspicious lesions, warm and dry. HEART: no murmurs, regular rate and rhythm, S1, S2 normal. LUNGS: clear to auscultation bilaterally. ABDOMEN: normal, bowel sounds present, soft, nontender, distended. EXTREMITIES: no clubbing, cyanosis. Trace edema. PERIPHERAL PULSES: equal. NEUROLOGIC: nonfocal, alert and oriented. PSYCH: mood/affect full range. Office Procedures EKG Details: Sinus rhythm 65 beats per minute, rightward axis, low voltage, QTC 443 milliseconds. [id number], Complete Assessment & Plan Assessment & Plan (1) HTN (hypertension): Comment: Stable Code(s): I10 - Essential (primary) hypertension Category: Medical Qualifiers: Hypertension type: essential hypertension Qualified Code(s): I10 - Essential (primary) hypertension Plan Pleasant 47 gentleman who is here for follow-up. He has known history of hypertension and has morbid obesity. He is on multiple medications currently but blood pressure is still elevated. He previously was taking thiazide diuretic and blood pressure was better on that. I am adding chlorthalidone 25 mg daily. If this does not improve blood pressure then I think we should add spironolactone 25 mg daily. He is using we go away to lose weight but he has not lost any weight. He is saying in fact he gained weight. He has significant obesity and will benefit from bariatric surgery. I have discussed this with him that if medical weight loss does not work then he should consider bariatric surgery given his young age and significant obesity. Thank you for allowing me to participate in the care of your patient. Please feel free to contact me if you have any questions. Medications: New chlorthalidone 25 mg PO DAILY 90 tabs 3RF Coding Level of Care Code Est Pt Level 4 (50270) Diagnoses Essential hypertension I10 Hypertension type: essential hypertension CPT Codes EKG - CPT: [id number], Complete ([id number])
== END 2023-09-24 09:44 | disposition home or self-care (01) ==
PROVIDERS: PCP Physician Assistant; Visit Provider Internal Medicine Cardiovascular Disease
DX: I10 Essential (primary) hypertension (principal)
CPT/HCPCS: 93010; 99214

== ENCOUNTER → 2023-09-24 09:09 | Outpatient (BNVA) | payer OTHER, SELFPAY | PROVIDERS: PCP Physician Assistant; Visit Provider Internal Medicine Cardiovascular Disease | DX: I10 Essential (primary) hypertension (principal); E66.01 Morbid (severe) obesity due to excess calories; Z68.45 Body mass index [BMI] 70 or greater, adult | CPT/HCPCS: 93005; 99212 ==

== ENCOUNTER 2023-10-27 09:55 | Outpatient (AMB) | payer OTHER, SELFPAY ==
--- NOTE | 2023-10-27 10:00 | MHC.OFFVIS ---
Vital Signs 10/27/23 10:01 Height 5 ft 7 in Weight 465 lb 2.806 oz BMI 72.8 BP 128/79 Blood Pressure Location Lt radial Position Sitting Pulse 69 Pulse Source Doppler Pulse Oximetry (%) 97 Oxygen Delivery Method Room Air Intake Visit Reasons: Obstructive sleep apnea Intake Note: Patient is here to follow up on BRET, reports no new symptoms, patient is using his CPAP machine Allergies No Known Allergies Allergy (Verified 10/27/23 10:19) Medication List - Last Reconciled 10/27/23 by Liliam Ramirez MD cetirizine 10 mg PO DAILY 90 days chlorthalidone 25 mg PO DAILY cholecalciferol (vitamin D3) 50 mcg PO DAILY fluticasone propionate 50 mcg/actuation 1 spray intranasal DAILY PRN iron,carbonyl-vitamin C 65 mg iron- 125 mg (Vitron-C) 1 tab PO BEDTIME lisinopril 20 mg PO DAILY meloxicam 15 mg PO DAILY 30 days metoprolol succinate ER 50 mg PO DAILY semaglutide (weight loss) (Wegovy) 0.25 mg (0.5 mL) subcut QWEEK 4 weeks sennosides (Senna Lax) 17.2 mg (2 x 8.6 mg) PO BEDTIME PRN 90 days tizanidine 4 mg PO TID PRN 30 days Do you need a note to return to daycare/school/sports/work: No HPI HPI Obstructive sleep apnea: Details: This 47 years old very pleasant gentleman with super morbid obesity, BMI 72.9 , comes for follow-up for his sleep apnea. He is an avid user of CPAP at night, almost for 9 hours every night, sleeps very well, and is very pleased. He has no issues with the CPAP device are the nasal mask. In spite of the fact that he remains super morbidly obese, he is active and energetic during the daytime. He has been inconsistent in the weight management program because his son has some kind of special cancer and he has to travel with him to [facility] for the treatment. He intends to join the weight management program again. So for his weight remains unchanged. FORMERLY [facility], [facility] Medical History Restrictive lung disease Dyspnea on exertion Surgical History No pertinent past surgical history Family History Father Colon cancer Mother Heart attack, Onset Age: 48 Son Leukemia Social History Housing: House Alcohol intake: current Alcohol intake frequency: a few times a month Alcohol type: beer Patient Tobacco Use Status: Former Tobacco user Tobacco use type: Cigarette Years Smoked: 15 +/- e-Cigarette/Vaping Use: Never Used Second Hand Smoke Exposure: No service: No Current occupational status: unemployed Cognitive needs: No Hearing needs: No Vision needs: Yes Review of Systems Const All systems reviewed & are unremarkable except as noted in HPI and below Eyes Reports no additional complaints ENT Reports nasal congestion (Mild intermittent) Card Denies chest pain, Denies irregular heart rhythm and Reports dyspnea on exertion Resp Reports dyspnea on exertion and Reports wheezing (Occasion) GI Reports no additional complaints Reports no additional complaints Musc Reports back pain Skin/Breast Reports system reviewed and no additional complaints, except as documented Neuro Reports no additional complaints Psych Reports no additional complaints Aller/Immun Reports wheezing (Occasion) Physical Exam Vital Signs: Last Vital Signs Pulse 69 10/27/23 10:01 BP 128/79 10/27/23 10:01 Pulse Ox 97 10/27/23 10:01 Oxygen Delivery Method Room Air 10/27/23 10:01 BMI result Body Mass Index 72.8 He is grossly overweight, with a large round face, Const General: comfortable, no acute distress, alert and awake Orientation/consciousness: patient oriented x3 HEENT Head: Yes normal to inspection General nose exam: No nasal polyps present and No nasal discharge present Face and sinus: Yes sinuses nontender Mouth: oropharynx abnormals (Very narrow and crowded oropharynx, Mallampati class 4) Throat: Yes posterior oropharynx normal Eyes General: appearance normal, both eyes and all related structures Neck Neck: Yes normal visual inspection, Yes no lymphadenopathy, Yes trachea midline, Yes no JVD and Yes other (Grossly obese) Thyroid: Thyroid normal Chest Chest palpation & inspection: normal inspection of the chest, normal palpation of entire chest wall and no tenderness Resp Other: Percussion note is not perceptible, breath sounds are very distant, But no wheezes rhonchi or crepitations are heard . Cardio Palpation: normal PMI Rate: regular rate Rhythm: regular rhythm Heart sounds: no gallops and no murmurs Peripheral pulses: Peripheral pulses 2+ throughout GI Palpation (GI): Soft to palpation, nontender, No hepatosplenomegaly present, no masses and Other GI palpation findings present (Abdomen grossly obese and protuberant) Auscultation: normal bowel sounds Back/Spine/Pelvis Thoracic/Lumbar Spine: thoracic and lumbar spine normal to inspection and thoraco-lumbar ROM limited Skin General skin exam: no rashes or lesions noted Neuro General: patient oriented x3 and no focal motor deficits Cranial nerves: Yes CN's II-XII intact bilaterally Extrem General: Yes normal to inspection, Yes no clubbing, cyanosis or edema and Yes no calf tenderness Psych Appearance: grossly normal and well kempt Speech and movement: Normal speech and movement present Results Reviewed Results Reviewed: Compliance report for the last 30 nights is reviewed. He has used 30/30 nights,. 100% of the time Average use it per night 9 hours 55 minutes which is very excellent. Pressure 16 cm, no air leak, Residual AHI 0.5 Assessment & Plan Assessment & Plan (1) Morbid obesity: Comment: He has super morbid obesity, gained a few more lb lately, current BMI 72.9 Code(s): E66.01 - Morbid (severe) obesity due to excess calories Category: Surgical Plan: Talked to him. About his weight He has been out of the weight management. Program for a while He intends to join the weight management program again. Currently also getting Wagovy injections weekly. That should help. (2) BRET on CPAP: Comment: BRET is well treated with the application of CPAP, pressure of 16 cm. using Nasal Pillows HE IS VERY COMPLIANT AND BENEFITING.. Code(s): G47.33 - Obstructive sleep apnea (adult) (pediatric); Z99.89 - Dependence on other enabling machines and devices Category: Medical Plan: Commended for good compliance and advised to continue using the CPAP every night . (3) Restrictive lung disease: Comment: PER PREVIOUS PULMONARY FUNCTION TEST HE DOES HAVE SIGNIFICANT RESTRICTIVE LUNG DISEASE. THIS IS MAINLY BECAUSE OF HIS MORBID OBESITY, Code(s): J98.4 - Other disorders of lung Category: Medical Plan: EXPLAINED ABOUT HIS RESTRICTIVE PULMONARY DISORDER. HE SHOULD TRY TO DO DEEP BREATHING EXERCISES 2 OR 3 TIMES A DAY. THERE IS NO EVIDENCE OF OBSTRUCTIVE AIRWAY DISORDER, OCCASIONAL WHEEZING SOUND MAY BE DUE TO NARROW UPPER AIRWAYS. Coding Level of Care Code Est Pt Level 3 (63777) Diagnoses Morbid obesity E66.01 BRET on CPAP G47.33; Z99.89 Restrictive lung disease J98.4
[2023-10-27 10:01] VITALS: BP 128/79; PULSE 69; O2SAT 97; BMI 72.8
== END 2023-10-27 10:19 | disposition home or self-care (01) ==
PROVIDERS: PCP Physician Assistant; Visit Provider Internal Medicine
DX: E66.01 Morbid (severe) obesity due to excess calories (principal); G47.33 Obstructive sleep apnea (adult) (pediatric); Z99.89 Dependence on other enabling machines and devices; J98.4 Other disorders of lung
CPT/HCPCS: 99213

== ENCOUNTER → 2023-10-27 09:55 | Outpatient (BNVA) | payer OTHER, SELFPAY | PROVIDERS: PCP Physician Assistant; Visit Provider Internal Medicine | DX: G47.33 Obstructive sleep apnea (adult) (pediatric) (principal); E66.01 Morbid (severe) obesity due to excess calories; J98.4 Other disorders of lung; Z68.45 Body mass index [BMI] 70 or greater, adult; Z99.89 Dependence on other enabling machines and devices | CPT/HCPCS: 99212 ==

== ENCOUNTER 2023-10-30 08:31 | Outpatient (AMB) | payer OTHER, SELFPAY ==
[2023-10-30 08:41] VITALS: BP 128/82; PULSE 89; O2SAT 96; BMI 73.8
--- NOTE | 2023-10-30 08:41 | MHC.PC.OV ---
Vital Signs 10/30/23 08:41 Height 5 ft 7 in Weight 471 lb 2.045 oz BMI 73.8 BP 128/82 Blood Pressure Location Lt brachial Position Sitting Pulse 89 Pulse Source Pulse Oximeter Pulse Oximetry (%) 96 Oxygen Delivery Method Room Air Intake Visit Reasons: f/u HTN/ Weight check Scrap Separator Required: No Accompanied by: Self / Same As Patient Allergies No Known Allergies Allergy (Verified 10/30/23 09:02) Medication List - Last Reconciled 10/30/23 by Delmer Wilkinson PA-C cetirizine 10 mg PO DAILY 90 days chlorthalidone 25 mg PO DAILY cholecalciferol (vitamin D3) 50 mcg PO DAILY fluticasone propionate 50 mcg/actuation 1 spray intranasal DAILY PRN iron,carbonyl-vitamin C 65 mg iron- 125 mg (Vitron-C) 1 tab PO BEDTIME lisinopril 20 mg PO DAILY meloxicam 15 mg PO DAILY 30 days metoprolol succinate ER 50 mg PO DAILY semaglutide (weight loss) (Wegovy) 0.25 mg (0.5 mL) subcut QWEEK 4 weeks sennosides (Senna Lax) 17.2 mg (2 x 8.6 mg) PO BEDTIME PRN 90 days tizanidine 4 mg PO TID PRN 30 days Tobacco use date assessed: 10/30/23 Dental Screening Dental Screen Date: 10/30/23 Did you have a dental visit in the last 12 months?: Yes Did you have a dental problem in the last 6 months where you did not have access to dental care?: No Was dental information given to patient?: Patient has dentist HPI f/u HTN/ Weight check HPI Details Wally is a 47 year old male here today for a followup visit.? . Patient has a pmhx significant for Morbid obesity, Sleep apnea, chronic knee/ lumbar spine pain, hypertension, major depressive disorder, ., Concern--> continues to ormo with weight. Was followed with the [facility] weight management program though has lost follow-up again. He reports he has been dealing with depression every year in the spring which causes him to over 8. Of note he was on Trulicity though had some difficulty finding it from the pharmacy. . Impaired glucose metabolism: Noted most recent A1c has to 5.5 from 6. Has recently started GLP 1 as it has been approved by insurance. ? Morbid obesity:? Recently started GLP 1 in hopes to lose weight. He plans on getting back on board with his diet.? . ? BRET: Using CPAP on occasion nightly? , is followed by Dr. Zhou.? Headaches since resolved since using CPAP nightly. ? .. ? HTN:? Blood pressure today in office acceptable. Was recently placed back on diuretic and reports better control his blood pressure though does note urinary frequency.. He continues on metoprolol and lisinopril with good effect on his blood pressureas well..? He does monitor his blood pressures at home and does report normal readings.?Denies any vision issues, chest discomforts or headaches.? FOR[facility]LY [facility], [facility] Medical History Restrictive lung disease Dyspnea on exertion Surgical History No pertinent past surgical history Family History Father Colon cancer Mother Heart attack, Onset Age: 48 Son Leukemia Social History Housing: House Alcohol intake: current Alcohol intake frequency: a few times a month Alcohol type: beer Patient Tobacco Use Status: Former Tobacco user Tobacco use type: Cigarette Years Smoked: 15 +/- e-Cigarette/Vaping Use: Never Used Second Hand Smoke Exposure: No service: No Current occupational status: unemployed Cognitive needs: No Hearing needs: No Vision needs: Yes Questionnaire PHQ-9 Over the last 2 weeks, how often have you been bothered by any of the following problems? 1. Little interest or pleasure in doing things: not at all 2. Feeling down, depressed, or hopeless: not at all 3. Trouble falling or staying asleep, or sleeping too much: not at all 4. Feeling tired or having little energy: not at all 5. Poor appetite or overeating: not at all 6. Feeling bad about yourself - or that you are a failure or have let yourself or your family down: not at all 7. Trouble concentrating on things, such as reading the newspaper or watching television: not at all 8. Moving or speaking so slowly that other people could have noticed. Or the opposite - being so fidgety or restless that you have been moving around a lot more than usual: not at all 9. Thoughts that you would be better off or of hurting yourself in some way: not at all Total score: 0 Depression Screening Interpretation: Negative Depression Screening Done: Yes 18026 - PHQ-9 Billing: Yes Source: Developed by Drs. Christopher Vazquez, Majo Blanca, Compa No and colleagues, with an educational kassidy from [employer]. Thrive Questionnaire Date Thrive assessed: 10/30/23 I am a: Patient What is your living situation today?: I have a steady place to live Within the past 12 months, did the food you bought not last and you didn't have the money to get more?: Never true Within the past 12 months, did you worry whether your food would run out before you got money to buy more?: Never true Do you have trouble paying for medicines?: No Do you have trouble getting transportation to medical appointments?: No Do you have trouble paying your heating and electricity bill?: No Do you have trouble taking care of your child, family member or friend?: No Do you have trouble with day-to-day activities such as bathing, preparing meals, shopping, managing finances, etc.?: No Are you currently unemployed and looking for a job?: Yes Are you interested in more education?: No Please select the resources that you would like help with: None Currently or been in a relationship where the following occur: No concerns reported THRIVE Score: 0 AUDIT C Alcohol Use Questionnaire (AUDIT-C) 1. How often do you have a drink containing alcohol?: Monthly or less 2. How many drinks containing alcohol do you have on a typical day when you are drinking?: 1 or 2 3. How often do you have six or more drinks on one occasion?: Never Total Score: 1 HEAVENLY-7 AMB Questionnaire HEAVENLY-7 Date HEAVENLY - 7 assessed: 10/30/23 Feeling nervous, anxious, or on edge: 0 = Not at all Not being able to stop or control worryin = Not at all Worrying too much about different things: 0 = Not at all Trouble relaxin = Not at all Being so restless that it is hard to sit still: 0 = Not at all Becoming easily annoyed or irritable: 0 = Not at all Feeling afraid as if something awful might happen: 0 = Not at all Total HEAVENLY-7 score (0-4 normal; 5-9 mild; 10-14 moderate; 15-21 severe): 0 Source: Developed by Drs. Christopher Vazquez, Majo Blanca, Compa No and colleagues, with an educational kassidy from [employer]. HEAVENLY-7 Assessment Billing HEAVENLY-7 Assessment Tool: HEAVENLY-7 Assessment 73899 Review of Systems Const Denies headache(s) Eyes Denies loss of vision ENT Denies vertigo, Denies dizziness, Denies headache(s) and Denies sore throat Card Denies chest pain, Denies leg edema and Denies lightheadedness Resp Denies cough, Denies hemoptysis and Denies wheezing GI Denies abdominal pain, Denies melena, Denies constipation, Denies diarrhea and Denies vomiting Denies dysuria, Denies urinary frequency and Denies urinary urgency Musc Denies arthralgias, Denies joint swelling, Denies numbness and Denies tingling Neuro Denies Abnormal speech present, Denies behavioral changes, Denies vertigo, Denies dizziness, Denies headache(s), Denies loss of vision, Denies memory loss, Denies numbness and Denies tingling Psych Denies anxiety, Denies behavioral changes, Denies depression, Denies memory loss and Denies panic attacks Kyree/Lymph Denies easy bleeding and Denies easy bruising Aller/Immun Denies wheezing Physical exam (Primary Care) Vital Signs: Last Vital Signs Pulse 89 10/30/23 08:41 BP 128/82 10/30/23 08:41 Pulse Ox 96 10/30/23 08:41 Oxygen Delivery Method Room Air 10/30/23 08:41 BMI result Body Mass Index 73.8 Tobacco/Smoking Status: Tobacco use Status Tobacco use date assessed 10/30/23 10/30/23 08:48 Patient Tobacco Use Status Former Tobacco user 10/30/23 08:41 Tobacco use type Cigarette 10/30/23 08:41 e-Cigarette/Vaping Use Never Used 10/30/23 08:41 PHQ-9: PHQ-9 Score PHQ-9: Total score 0 10/30/23 09:03 Depression Screening Interpretation: Negative Thrive Assessment: Date of Thrive Assessment Date Thrive assessed 10/30/23 10/30/23 08:48 Currently or been in a relationship where the following occur: No concerns reported Const General: healthy appearing, no acute distress, alert and awake Nutritional Appearance: well nourished Orientation/consciousness: oriented to person, oriented to place and oriented to time HENMT Ears: TM's normal bilaterally General nose exam: Normal nasal mucous membranes and turbinates present Eyes Conjunctivae: conjunctivae normal Sclerae: sclerae normal Pupils: Equal, round and reactive pupils present Neck Neck: Yes no lymphadenopathy and Yes no JVD Thyroid: Thyroid normal Carotids: no bruits Resp Effort & Inspection: normal respiratory effort and not tachypneic Auscultation: no crackles, no rales, no rhonchi and no wheezes Cardio Rate: regular rate Rhythm: regular rhythm Heart sounds: no murmurs and normal S1 and S2 GI Palpation (GI): Soft to palpation, nontender, no hepatomegaly and no splenomegaly Auscultation: normal bowel sounds Skin General skin exam: no rashes or lesions noted and dry skin Neuro General: oriented to person, oriented to place and oriented to time Cranial nerves: Yes Equal, round and reactive pupils present Speech: No Abnormal speech present Gait exam (Neuro): Normal gait present Motor exam (neuro): no tremor noted Extrem Right upper extremity: full ROM Left upper extremity: full ROM Right lower extremity: full ROM; no edema Left lower extremity: full ROM; no edema Psych Mental Status: mental status grossly normal Speech and movement: Normal speech and movement present Affect: normal affect Attitude: cooperative Thought process: Normal thought process present Assessment and Plan Assessment & Plan (1) Morbid obesity: Comment: He has super morbid obesity, gained a few more lb lately, current BMI 72.9 Code(s): E66.01 - Morbid (severe) obesity due to excess calories Plan: Patient continues to follow [facility] weight management program. Gained weight since last office visit due to dietary indiscretion over the holidays. He admits he has a problem with eating. Does have a mental therapist he speaks too. Has had difficulty finding Trulicity from the pharmacy Has recently started Wegovy He plans on getting more physically active (2) HTN (hypertension): Comment: Stable Code(s): I10 - Essential (primary) hypertension Qualifiers: Hypertension type: essential hypertension Qualified Code(s): I10 - Essential (primary) hypertension Plan: Patient's blood pressure acceptable today in office, was recently restarted on diuretics, does report urinary frequency though better blood pressure control. will continue his current dose of antihypertensive medication with goal blood pressure to be below 140/90 (3) BRET on CPAP: Comment: BRET is well treated with the application of CPAP, pressure of 16 cm. using Nasal Pillows HE IS VERY COMPLIANT AND BENEFITING.. Code(s): G47.33 - Obstructive sleep apnea (adult) (pediatric); Z99.89 - Dependence on other enabling machines and devices Plan: Continues to be compliant with his CPAP machine on a nightly basis. (4) Impaired glucose metabolism: Code(s): R73.09 - Other abnormal glucose Plan: Most recent A1c at 5.5 from 6.0 Recently started Jae P1 without any side effects. Anticipates up titrating dose of the GLP 1. Medications: New semaglutide (weight loss) (Wegovy) 0.5 mg (0.5 mL) subcut QWEEK 2 mL 0RF 4 weeks E66.01 - Morbid (severe) obesity due to excess calories Discontinued semaglutide (weight loss) (Wegovy) administer weeks 1 through 4 of therapy Discontinued Reason: Doctor's Order 0.25 mg (0.5 mL) subcut QWEEK 4 weeks 2 mL 0RF E66.01 - Morbid (severe) obesity due to excess calories, G47.33 - Obstructive sleep apnea (adult) (pediatric), I10 - Essential (primary) hypertension, Z99.89 - Dependence on other enabling machines and devices Patient Instructions: Goal: Blood pressure to remain below 140/90 Barriers: Adherence to physical activity and healthy eating habits Coding Level of Care Code Est Pt Level 4 (79724) Diagnoses Morbid obesity E66.01 Essential hypertension I10 Hypertension type: essential hypertension BRET on CPAP G47.33; Z99.89 Impaired glucose metabolism R73.09 Additional Codes HEAVENLY-7 Assessment Billing - HEAVENLY-7 Assessment Tool: HEAVENLY-7 Assessment 14142 ([id number])
== END 2023-10-30 09:26 | disposition home or self-care (01) ==
PROVIDERS: PCP Physician Assistant; Visit Provider Physician Assistant
DX: I10 Essential (primary) hypertension (principal); E66.01 Morbid (severe) obesity due to excess calories; Z68.45 Body mass index [BMI] 70 or greater, adult; G47.33 Obstructive sleep apnea (adult) (pediatric); Z99.89 Dependence on other enabling machines and devices; R73.09 Other abnormal glucose

== ENCOUNTER → 2023-10-30 08:31 | Outpatient (BNVA) | payer OTHER, SELFPAY | PROVIDERS: PCP Physician Assistant; Visit Provider Physician Assistant | DX: E66.01 Morbid (severe) obesity due to excess calories (principal); I10 Essential (primary) hypertension; R73.09 Other abnormal glucose; G47.33 Obstructive sleep apnea (adult) (pediatric); Z99.89 Dependence on other enabling machines and devices | CPT/HCPCS: 96127; 99212 ==

== ENCOUNTER 2024-02-02 06:37 | Outpatient (REF) | payer OTHER, SELFPAY ==
[2024-02-02 07:45] LABS: Hematocrit 42.9 % (42.0-52.0); Hemoglobin 14.1 g/dl (14.0-18.0); Mean Corpuscular HGB Conc 32.9 g/dl (31.0-36.0); Mean Corpuscular Hemoglobin 29.8 pg (27.0-33.0); Mean Corpuscular Volume 90.7 fL (80.0-98.0); Mean Platelet Volume 10.6 fL (9.4-12.4); Platelet Count 261 X10*3/uL (160-400); Red Blood Count 4.73 X10*6/uL (4.60-5.80); Red Cell Distribution Width 12.7 % (11.0-16.0); White Blood Count 8.2 X10*3/uL (4.8-10.8)
[2024-02-02 08:53] LABS: Alanine Aminotransferase 22 U/L (0-40); Albumin Level 4.1 g/dL (3.5-5.0); Alkaline Phosphatase 84 U/L (39-117); Anion Gap 11 (12-20); Aspartate Amino Transferase 27 U/L (5-37); Bilirubin Total 0.3 mg/dL (0.0-1.0); Blood Urea Nitrogen 9 mg/dL (9-16); Carbon Dioxide 28 mmol/L (22-29); Chloride 105 mmol/L (96-108); Estimated Glomerular Filt Rate > 60; Glucose Fasting 89 mg/dL (60-99); Potassium 3.9 mmol/L (3.3-5.1); Sodium 140 mmol/L (135-145); Total Protein 8.1 g/dL (6.5-8.0)
[2024-02-02 09:37] LABS: Prostate Specific Antigen Scr < 0.10 ng/mL (<0.05-4.0)
== END 2024-02-02 06:38 | disposition home or self-care (01) ==
LOC: HO.LAB 06:37
PROVIDERS: PCP Physician Assistant; Visit Provider Physician Assistant
DX: I10 Essential (primary) hypertension (principal); E11.9 Type 2 diabetes mellitus without complications; Z12.5 Encounter for screening for malignant neoplasm of prostate
CPT/HCPCS: 36415; 80053; 84153; 85027

== ENCOUNTER 2024-02-03 09:15 | Outpatient (AMB) | payer OTHER, SELFPAY ==
--- NOTE | 2024-02-03 09:18 | A.OFFPC_ITS ---
Vital Signs 02/03/24 09:19 Height 5 ft 7 in Weight 437 lb 6.354 oz BMI 68.5 BP 124/70 Blood Pressure Location Lt brachial Position Sitting Pulse 72 Pulse Source Pulse Oximeter Pulse Oximetry (%) 95 Oxygen Delivery Method Room Air Intake Visit Reasons: Annual Exam Intake Note: Patient is here today for a physical. Research Associate Molecular Biology Required: No Accompanied by: Self / Same As Patient Allergies No Known Allergies Allergy (Verified 02/03/24 09:32) Medication List - Last Reconciled 02/03/24 by Delmer Wilkinson PA-C cetirizine 10 mg PO DAILY 90 days chlorthalidone 25 mg PO DAILY cholecalciferol (vitamin D3) 50 mcg PO DAILY fluticasone propionate 50 mcg/actuation 1 spray intranasal DAILY PRN iron,carbonyl-vitamin C 65 mg iron- 125 mg (Vitron-C) 1 tab PO BEDTIME lisinopril 20 mg PO DAILY meloxicam 15 mg PO DAILY 30 days metoprolol succinate ER 50 mg PO DAILY semaglutide (weight loss) (Wegovy) 1.7 mg (0.75 mL) subcut QWEEK 4 weeks sennosides (Senna Lax) 17.2 mg (2 x 8.6 mg) PO BEDTIME PRN 90 days tizanidine 4 mg PO TID PRN 30 days Tobacco use date assessed: 10/30/23 Dental Screening Dental Screen Date: 10/30/23 [facility] Annual Exam HPI Details Wally is a 48 year old male here today for routine annual physical? . Patient has a pmhx significant for Morbid obesity, Sleep apnea, chronic knee/ lumbar spine pain, hypertension, major depressive disorder, ., . Impaired glucose metabolism: Noted most recent A1c has to 5.5 from 6. Has recently started GLP 1 as it has been approved by insurance. ? medical necessity for GLP 1 ? ? ? Morbid obesity:? Has started Wegovy and has lost significant amount of weight. BMI now at 68 from 72. Has lost more than 5% of his total body mass. He reports his mood is much better and he has adapted to better eating habits. He also reports he has been a bit more physically active doing more walks in his neighborhood. His fasting blood sugar has improved as well and also has chronic anemia has stabilized. He plans on going to highest dose of 2.4 mg of the Wegovy and stabilize on this dose. His goal weight is 330 lb. . ? BRET: Using CPAP on occasion nightly? , is followed by Dr. Zhou.? Headaches since resolved since using CPAP nightly. ? .. ? HTN:? Blood pressure today in office acceptable. Was recently placed back on diuretic and reports better control his blood pressure though does note urinary frequency.. He continues on metoprolol and lisinopril with good effect on his blood pressureas well..? He does monitor his blood pressures at home and does report normal readings.?Denies any vision issues, chest discomforts or headaches. Vaccines: Up-to-date with COVID vaccine, flu vaccine, tetanus vaccine, up to date with PCV Colon cancer screening: Done at [facility] in December of 2022, normal repeat 10 years Laboratory Tests 02/20/23 02/02/24 06:05 06:39 RBC 4.51 L 4.73 Hgb 13.2 L 14.1 Creatinine 0.91 Fasting Glucose 97 89 PSA Screen < 0.10 PFSH Medical History Restrictive lung disease Dyspnea on exertion Surgical History No pertinent past surgical history Family History Father Colon cancer Mother Heart attack, Onset Age: 48 Son Leukemia Social History Housing: House Alcohol intake: current Alcohol intake frequency: a few times a month Alcohol type: beer Patient Tobacco Use Status: Former Tobacco user Tobacco use type: Cigarette Years Smoked: 15 +/- e-Cigarette/Vaping Use: Never Used Second Hand Smoke Exposure: No service: No Current occupational status: unemployed Cognitive needs: No Hearing needs: No Vision needs: Yes Questionnaire PHQ-9 Over the last 2 weeks, how often have you been bothered by any of the following problems? 1. Little interest or pleasure in doing things: not at all 2. Feeling down, depressed, or hopeless: not at all 3. Trouble falling or staying asleep, or sleeping too much: not at all 4. Feeling tired or having little energy: not at all 5. Poor appetite or overeating: not at all 6. Feeling bad about yourself - or that you are a failure or have let yourself or your family down: not at all 7. Trouble concentrating on things, such as reading the newspaper or watching television: not at all 8. Moving or speaking so slowly that other people could have noticed. Or the opposite - being so fidgety or restless that you have been moving around a lot more than usual: not at all 9. Thoughts that you would be better off or of hurting yourself in some way: not at all Total score: 0 Depression Screening Interpretation: Negative Depression Screening Done: Yes 91540 - PHQ-9 Billing: Yes Source: Developed by Drs. Christopher Vazquez, Majo Blanca, Compa No and colleagues, with an educational kassidy from [employer]. Thrive Questionnaire Date Thrive assessed: 02/03/24 I am a: Patient What is your living situation today?: I have a steady place to live Within the past 12 months, did the food you bought not last and you didn't have the money to get more?: I choose not to answer this question Within the past 12 months, did you worry whether your food would run out before you got money to buy more?: Never true Do you have trouble paying for medicines?: No Do you have trouble getting transportation to medical appointments?: No Do you have trouble paying your heating and electricity bill?: No Do you have trouble taking care of your child, family member or friend?: No Do you have trouble with day-to-day activities such as bathing, preparing meals, shopping, managing finances, etc.?: No Are you currently unemployed and looking for a job?: Yes Are you interested in more education?: No Please select the resources that you would like help with: None Currently or been in a relationship where the following occur: No concerns reported THRIVE Score: 0 AUDIT C Alcohol Use Questionnaire (AUDIT-C) 1. How often do you have a drink containing alcohol?: Never 3. How often do you have six or more drinks on one occasion?: Never Total Score: 0 HEAVENLY-7 AMB Questionnaire HEAVENLY-7 Date HEAVENLY - 7 assessed: 02/03/24 Feeling nervous, anxious, or on edge: 0 = Not at all Not being able to stop or control worryin = Not at all Worrying too much about different things: 0 = Not at all Trouble relaxin = Not at all Being so restless that it is hard to sit still: 0 = Not at all Becoming easily annoyed or irritable: 0 = Not at all Feeling afraid as if something awful might happen: 0 = Not at all Total HEAVENLY-7 score (0-4 normal; 5-9 mild; 10-14 moderate; 15-21 severe): 0 Source: Developed by Drs. Christopher Vazquez, Majo Blanca, Compa No and colleagues, with an educational kassidy from [employer]. HEAVENLY-7 Assessment Billing HEAVENLY-7 Assessment Tool: HEAVENLY-7 Assessment 56604 Review of Systems Const Denies body aches, Denies chills, Denies excessive sweating, Denies fatigue, Denies fever(s) and Denies headache(s) Eyes Denies blurry vision ENT Denies dysphagia, Denies vertigo, Denies dizziness, Denies headache(s), Denies hearing loss and Denies tinnitus Card Denies chest pain, Denies chest pain with activity, Denies syncope, Denies irregular heart rhythm and Denies dyspnea Resp Denies chest congestion, Denies cough, Denies hemoptysis, Denies dyspnea and Denies wheezing GI Denies abdominal pain, Denies melena, Denies hematochezia, Denies coffee ground emesis, Denies dysphagia, Denies diarrhea, Denies nausea and Denies vomiting Denies difficulty urinating, Denies dysuria, Denies urinary frequency, Denies urinary hesitancy and Denies urinary urgency Musc Denies arthralgias, Denies limited range of motion, Denies muscle cramps and Denies muscle weakness Skin/Breast Denies rash and Denies skin ulcer Neuro Denies Abnormal speech present, Denies confusion, Denies vertigo, Denies dizziness, Denies syncope, Denies headache(s), Denies memory loss and Denies seizure-like activity Psych Denies anxiety, Denies confusion, Denies depression, Denies memory loss, Denies panic attacks and Denies paranoia Endo Denies excessive sweating, Denies fatigue, Denies flushing, Denies polydipsia and Denies polyuria Aller/Immun Denies wheezing Physical exam (Primary Care) Vital Signs: Last Vital Signs Pulse 72 02/03/24 09:19 BP 124/70 02/03/24 09:19 Pulse Ox 95 02/03/24 09:19 Oxygen Delivery Method Room Air 02/03/24 09:19 BMI result Body Mass Index 68.5 BMI Assessment/Plan discussion: High BMI High, discussed plan: lifestyle, weight reduction, dietary and physical activity Tobacco/Smoking Status: Tobacco use Status Tobacco use date assessed 10/30/23 02/03/24 09:22 Patient Tobacco Use Status Former Tobacco user 02/03/24 09:22 Tobacco use type Cigarette 02/03/24 09:22 e-Cigarette/Vaping Use Never Used 02/03/24 09:22 PHQ-9: PHQ-9 Score PHQ-9: Total score 0 02/03/24 09:29 Depression Screening Interpretation: Negative Thrive Assessment: Date of Thrive Assessment Date Thrive assessed 02/03/24 02/03/24 09:29 Currently or been in a relationship where the following occur: No concerns reported Const Other: MORBIDLY OBESE General: cooperative, comfortable, no acute distress, alert and awake; No confusion Orientation/consciousness: oriented to person, oriented to place, patient oriented x3 and No confusion HENMT Head: Yes normocephalic Ears: external ears normal and TM's normal bilaterally Face and sinus: No sinus tenderness Mouth: Normal oral and palatal mucosa present and tongue normal Teeth and gingiva: dentition normal and gingiva normal Throat: Yes posterior oropharynx normal, Yes tonsils normal and Yes uvula midline Eyes Conjunctivae: conjunctivae normal Sclerae: sclerae normal Pupils: Equal, round and reactive pupils present EOM: EOMs intact bilaterally Direct Ophthalmoscopy: No no photophobia Neck Neck: Yes no lymphadenopathy, No tender and Yes no JVD Thyroid: Thyroid normal Carotids: no bruits Chest Chest palpation & inspection: no tenderness Resp Effort & Inspection: normal respiratory effort, no audible wheezes, not labored and no stridor Auscultation: no crackles, no rales, no rhonchi and no wheezes Cardio Jugular venous distension: no JVD Rate: regular rate, not bradycardic and not tachycardic Rhythm: regular rhythm Bruits: no carotid bruits Peripheral pulses: Peripheral pulses 2+ throughout GI Inspection: Yes normal to inspection, No abdominal wall ecchymosis and No visible herniation Palpation (GI): Soft to palpation, nontender, no guarding, not rigid and No hepatosplenomegaly present Auscultation: normoactive bowel sounds General: Yes no CVA tenderness Back/Spine/Pelvis Back: no CVA tenderness and No back tenderness Cervical Spine: cervical ROM normal Thoracic/Lumbar Spine: thoracic and lumbar spine normal to inspection, straight leg raise negative bilaterally, No thoraco-lumbar ROM limited and No lumbar spinal tenderness Skin Lesions: no lesions Rashes: no rashes Wounds: no wounds Neuro General: oriented to person, oriented to place, patient oriented x3, CN's II-XI intact bilaterally and No confusion Cranial nerves: Yes Equal, round and reactive pupils present and Yes Normal accommodation reflex present Cognition (Neuro): normal cognition Speech: No Abnormal speech present Gait exam (Neuro): Normal gait present Motor exam (neuro): 5/5 motor strength present throughout Extrem Right upper extremity: full ROM; no cyanosis Left upper extremity: full ROM; no cyanosis Right lower extremity: no edema Left lower extremity: no edema Psych Appearance: grossly normal Mental Status: mental status grossly normal Affect: normal affect Attitude: cooperative Thought process: Normal thought process present Office Procedures Flu Questionnaire Does the patient have a severe egg allergy?: No Does the patient have severe life threatening allergies?: No Does the patient have a fever or illness today?: No Has the patient ever had Guillain-Ripon Syndrome?: No Has the patient ever had any past reaction to a flu shot?: No Immunizations Fluarix Triv [id number] (PF) 45 mcg (15 mcg x 3)/0.5 mL IM syringe Performing Provider: Delmer Wilkinson PA-C [facility] Administered by: CHAVEZ Kerns on 02/03/24 09:29 Dose Route Admin Location Dispensed Lot Number Expiration Date [facility] Sewer Inspector 0.5 mL IM Right Deltoid 0.5 mL [id number] 08/09/24 05083-852-06 [employer]API VIS Given Date VIS Provided VIS Publication Date 02/03/24 Single Vaccine 20 Eligibility Eligibility Date Funding Source Not [facility] Eligible 02/03/24 Private Coding Level of Care Code Est Pt Level 4 (06376) Est Pt Prev Care 40-64y(51656) Diagnoses Annual physical exam Z00.00 Morbid obesity E66.01 Essential hypertension I10 Hypertension type: essential hypertension Gastroesophageal reflux disease without esophagitis K21.9 Esophagitis presence: without esophagitis Additional Codes HEAVENLY-7 Assessment Billing - HEAVENLY-7 Assessment Tool: HEAVENLY-7 Assessment 10642 ([id number]) PHQ-9 - 21529 - PHQ-9 Billing: Yes ([id number]) Assessment & Plan Assessment & Plan (1) Annual physical exam: Code(s): Z00.00 - Encounter for general adult medical examination without abnormal findi ngs Category: Medical Plan: As per HPI (2) Morbid obesity: Comment: He has super morbid obesity, gained a few more lb lately, current BMI 72.9 Code(s): E66.01 - Morbid (severe) obesity due to excess calories Category: Surgical Plan: Has started Wegovy and has lost significant amount of weight. BMI now at 68 from 72. Has lost more than 5% of his total body mass. He reports his mood is much better and he has adapted to better eating habits. His fasting blood sugar has improved as well and also has chronic anemia has stabilized. He plans on going to highest dose of 2.4 mg of the Wegovy and stabilize on this dose. His goal weight is 330 lb. (3) HTN (hypertension): Comment: Stable Code(s): I10 - Essential (primary) hypertension Category: Medical Qualifiers: Hypertension type: essential hypertension Qualified Code(s): I10 - Essential (primary) hypertension Plan: Patient's blood pressure acceptable today in office. Will continue his current dose antihypertensive medication with goal blood pressure to remain below 140/90 (4) GERD (gastroesophageal reflux disease): Code(s): K21.9 - Gastro-esophageal reflux disease without esophagitis Category: Medical Qualifiers: Esophagitis presence: without esophagitis Qualified Code(s): K21.9 - Gastro-esophageal reflux disease without esophagitis Plan: Patient does report having some epigastric pain and burping. Will supply patient with pantoprazole to use for GERD like symptoms. Orders: Orders Influenza [id number] Immunization Today Z23 - Encounter for immunization Medications: New semaglutide (weight loss) (Wegovy) 2.4 mg (0.75 mL) subcut QWEEK 4 weeks 3 mL 6RF E66.01 - Morbid (severe) obesity due to excess calories pantoprazole 20 mg PO DAILY 30 days 30 tabs 1RF K21.9 - Gastro-esophageal reflux disease without esophagitis
[2024-02-03 09:19] VITALS: BP 124/70; PULSE 72; O2SAT 95; BMI 68.5
== END 2024-02-03 09:47 | disposition home or self-care (01) ==
PROVIDERS: PCP Physician Assistant; Visit Provider Physician Assistant
DX: Z00.00 Encounter for general adult medical examination without abnormal findings (principal); I10 Essential (primary) hypertension; E66.01 Morbid (severe) obesity due to excess calories; Z68.44 Body mass index [BMI] 60.0-69.9, adult; K21.9 Gastro-esophageal reflux disease without esophagitis; Z23 Encounter for immunization

== ENCOUNTER → 2024-02-03 09:15 | Outpatient (BNVA) | payer OTHER, SELFPAY | PROVIDERS: PCP Physician Assistant; Visit Provider Physician Assistant | DX: Z00.00 Encounter for general adult medical examination without abnormal findings (principal); E66.01 Morbid (severe) obesity due to excess calories; M54.50 Low back pain, unspecified; M25.569 Pain in unspecified knee; I10 Essential (primary) hypertension; G47.33 Obstructive sleep apnea (adult) (pediatric); K21.9 Gastro-esophageal reflux disease without esophagitis; Z23 Encounter for immunization; Z68.44 Body mass index [BMI] 60.0-69.9, adult; Z87.891 Personal history of nicotine dependence; Z99.89 Dependence on other enabling machines and devices | CPT/HCPCS: 90471; 90656; 96127; 99212; 99396 ==

== ENCOUNTER 2024-02-26 09:04 | Outpatient (AMB) | payer OTHER, SELFPAY ==
[2024-02-26 09:25] VITALS: BP 122/78; PULSE 65; O2SAT 97; BMI 67.3
--- NOTE | 2024-02-26 09:25 | A.OFFVIS_ITS ---
Vital Signs 02/26/24 09:25 Height 5 ft 7 in Weight 429 lb 14.422 oz BMI 67.3 BP 122/78 Blood Pressure Location Lt brachial Position Sitting Pulse 65 Pulse Source Pulse Oximeter Pulse Oximetry (%) 97 Oxygen Delivery Method Room Air Intake Visit Reasons: Obstructive sleep apnea Intake Note: pt is here for follow up and he is doing good, breating is good, would like a replacement machine. Staff Nurse Anesthetist Required: No Allergies No Known Allergies Allergy (Verified 02/26/24 09:37) Medication List - Last Reconciled 02/26/24 by Liliam Ramirez MD cetirizine 10 mg PO DAILY 90 days chlorthalidone 25 mg PO DAILY cholecalciferol (vitamin D3) 50 mcg PO DAILY fluticasone propionate 50 mcg/actuation 1 spray intranasal DAILY PRN iron,carbonyl-vitamin C 65 mg iron- 125 mg (Vitron-C) 1 tab PO BEDTIME lisinopril 20 mg PO DAILY meloxicam 15 mg PO DAILY 30 days metoprolol succinate ER 50 mg PO DAILY pantoprazole 20 mg PO DAILY 30 days semaglutide (weight loss) (Wegovy) 2.4 mg (0.75 mL) subcut QWEEK 4 weeks sennosides (Senna Lax) 17.2 mg (2 x 8.6 mg) PO BEDTIME PRN 90 days tizanidine 4 mg PO TID PRN 30 days Do you need a note to return to daycare/school/sports/work: No HPI HPI Obstructive sleep apnea: Details: This 48 years old gentleman is a case of super morbid obesity, and obstructive sleep apnea. He is being treated with CPAP which he uses religiously every night and up to 8 to 9 hours per night. CPAP machine is old and he needs replacement. He is very happy with the weight reduction caused by use of semaglutide injections ( Wagovy ) He is remaining very active and energetic during the daytime. He still concerned about his son who has an unusual lymphoma., getting more tests in [place] . [facility] Medical History Restrictive lung disease Dyspnea on exertion Surgical History No pertinent past surgical history Family History Father Colon cancer Mother Heart attack, Onset Age: 48 Son Leukemia Social History Housing: House Alcohol intake: current Alcohol intake frequency: a few times a month Alcohol type: beer Patient Tobacco Use Status: Former Tobacco user Tobacco use type: Cigarette Years Smoked: 15 +/- e-Cigarette/Vaping Use: Never Used Second Hand Smoke Exposure: No service: No Current occupational status: unemployed Cognitive needs: No Hearing needs: No Vision needs: Yes Review of Systems Const All systems reviewed & are unremarkable except as noted in HPI and below Eyes Reports no additional complaints ENT Reports nasal congestion (Mild intermittent) Card Denies chest pain, Denies irregular heart rhythm and Reports dyspnea on exertion Resp Reports dyspnea on exertion and Reports wheezing (Occasion) GI Reports no additional complaints Reports no additional complaints Musc Reports back pain Skin/Breast Reports system reviewed and no additional complaints, except as documented Neuro Reports no additional complaints Psych Reports no additional complaints Aller/Immun Reports wheezing (Occasion) Physical Exam He is grossly overweight, with a large round face, Const Other: WEIGHT IS DOWN BY 41 LB General: comfortable, no acute distress, alert and awake Orientation/consciousness: patient oriented x3 HEENT Head: Yes normal to inspection General nose exam: No nasal polyps present and No nasal discharge present Face and sinus: Yes sinuses nontender Mouth: oropharynx abnormals (Very narrow and crowded oropharynx, Mallampati class 4) Throat: Yes posterior oropharynx normal Eyes General: appearance normal, both eyes and all related structures Neck Neck: Yes normal visual inspection, Yes no lymphadenopathy, Yes trachea midline, Yes no JVD and Yes other (Grossly obese) Thyroid: Thyroid normal Chest Chest palpation & inspection: normal inspection of the chest, normal palpation of entire chest wall and no tenderness Resp Other: Percussion note is not perceptible, breath sounds are very distant, But no wheezes rhonchi or crepitations are heard . Cardio Palpation: normal PMI Rate: regular rate Rhythm: regular rhythm Heart sounds: no gallops and no murmurs Peripheral pulses: Peripheral pulses 2+ throughout GI Palpation (GI): Soft to palpation, nontender, No hepatosplenomegaly present, no masses and Other GI palpation findings present (Abdomen grossly obese and protuberant) Auscultation: normal bowel sounds Back/Spine/Pelvis Thoracic/Lumbar Spine: thoracic and lumbar spine normal to inspection and thoraco-lumbar ROM limited Skin General skin exam: no rashes or lesions noted Neuro General: patient oriented x3 and no focal motor deficits Cranial nerves: Yes CN's II-XII intact bilaterally Extrem General: Yes normal to inspection, Yes no clubbing, cyanosis or edema and Yes no calf tenderness Psych Appearance: grossly normal and well kempt Speech and movement: Normal speech and movement present Results Reviewed Results Reviewed: COMPLIANCE REPORT FOR THE LAST 30 NIGHTS IS REVIEWED AND HIS USAGE IS 100%, WITH AVERAGE USE IT PER NIGHT 9 HOURS 44 MINUTES. PRESSURE 16 CM. WITH FULLFACE MASK THERE IS SOME AIR LEAK. RESIDUAL AHI ONLY 0.8. Assessment & Plan Assessment & Plan (1) Morbid obesity: Comment: He has super morbid obesity, has been started on Wagovy injections, and has lost 41 lb of weight. He is excited about that. Code(s): E66.01 - Morbid (severe) obesity due to excess calories Category: Surgical Plan: Advised to continue the treatment (2) Restrictive lung disease: Comment: PER PREVIOUS PULMONARY FUNCTION TEST HE DOES HAVE SIGNIFICANT RESTRICTIVE LUNG DISEASE. THIS IS MAINLY BECAUSE OF HIS MORBID OBESITY, Code(s): J98.4 - Other disorders of lung Category: Medical Plan: Continue to lose weight and continue doing deep breathing exercises (3) BRET on CPAP: Comment: HE IS KNOWN TO HAVE SEVERE BRET WHICH IS WELL TREATED WITH CPAP, NASAL PILLOWS, PRESSURE 16 CM. HE IS VERY COMPLIANT AND BENEFITING.. Code(s): G47.33 - Obstructive sleep apnea (adult) (pediatric); Z99.89 - Dependence on other enabling machines and devices Category: Medical Plan: ADVISED TO CONTINUE USING THE CPAP REGULARLY. HIS CPAP DEVICE IS OLD AND WE WILL ORDER A REPLACEMENT UNIT Coding Level of Care Code Est Pt Level 3 (84394) Diagnoses Morbid obesity E66.01 Restrictive lung disease J98.4 BRET on CPAP G47.33; Z99.89
== END 2024-02-26 09:37 | disposition home or self-care (01) ==
PROVIDERS: PCP Physician Assistant; Visit Provider Internal Medicine
DX: E66.01 Morbid (severe) obesity due to excess calories (principal); J98.4 Other disorders of lung; G47.33 Obstructive sleep apnea (adult) (pediatric); Z99.89 Dependence on other enabling machines and devices
CPT/HCPCS: 99213

== ENCOUNTER → 2024-02-26 09:04 | Outpatient (BNVA) | payer OTHER, SELFPAY | PROVIDERS: PCP Physician Assistant; Visit Provider Internal Medicine | DX: G47.33 Obstructive sleep apnea (adult) (pediatric) (principal); J98.4 Other disorders of lung; E66.01 Morbid (severe) obesity due to excess calories; Z99.89 Dependence on other enabling machines and devices; Z68.44 Body mass index [BMI] 60.0-69.9, adult | CPT/HCPCS: 99212 ==

== ENCOUNTER 2024-05-06 08:05 | Outpatient (AMB) | payer OTHER, SELFPAY ==
--- NOTE | 2024-05-06 08:23 | MHC.PC.OV ---
Vital Signs 05/06/24 08:24 Height 5 ft 7 in Weight 447 lb 5.086 oz BMI 70.1 BP 132/82 Blood Pressure Location Lt brachial Position Sitting Pulse 64 Pulse Source Pulse Oximeter Pulse Oximetry (%) 98 Oxygen Delivery Method Room Air Intake Visit Reasons: FU weight check R/S from 05/03 Physical Education Aide Required: No Accompanied by: Self / Same As Patient Allergies No Known Allergies Allergy (Verified 05/06/24 08:37) Medication List - Last Reconciled 05/06/24 by Delmer Wilkinson PA-C cetirizine 10 mg PO DAILY 90 days chlorthalidone 25 mg PO DAILY cholecalciferol (vitamin D3) 50 mcg PO DAILY fluticasone propionate 50 mcg/actuation 1 spray intranasal DAILY PRN iron,carbonyl-vitamin C 65 mg iron- 125 mg (Vitron-C) 1 tab PO BEDTIME lisinopril 20 mg PO DAILY meloxicam 15 mg PO DAILY 30 days metoprolol succinate ER 50 mg PO DAILY pantoprazole 20 mg PO DAILY 30 days semaglutide (weight loss) (Wegovy) 2.4 mg (0.75 mL) subcut QWEEK 4 weeks sennosides (Senna Lax) 17.2 mg (2 x 8.6 mg) PO BEDTIME PRN 90 days tizanidine 4 mg PO TID PRN 30 days Tobacco use date assessed: 05/06/24 Dental Screening Dental Screen Date: 05/06/24 Did you have a dental visit in the last 12 months?: Yes Did you have a dental problem in the last 6 months where you did not have access to dental care?: No Was dental information given to patient?: Patient has dentist HPI FU weight check R/S from 05/03 HPI Details Wally is a 48 year old male here today for a follow-up visit . Patient has a pmhx significant for Morbid obesity, Sleep apnea, chronic knee/ lumbar spine pain, hypertension, major depressive disorder, ., . Impaired glucose metabolism: Has had. Glucose metabolism for quite some time likely related to his severe obesity. Did get some better glycemic control when he was on GLP 1. PLAN: Will try to restart GLP 1 ? medical necessity for GLP 1 ? ? ? Morbid obesity:? Has started Wegovy and has lost significant amount of weight. He was able to get his BMI down to 60 while on Wegovy. He did report a low weight of 410 lb at the time. Unfortunately insurance has not been covering Wegovy over last 2 months When taking Wegovy he reported he has been a bit more physically active doing more walks in his neighborhood. His fasting blood sugar has improved as well and also has chronic anemia has stabilized. . ? BRET: Using CPAP on nightly basis? , is followed by Dr. Zhou.? Headaches since resolved since using CPAP nightly. ? .. ? HTN:? Blood pressure today in office acceptable. Was recently placed back on diuretic and reports better control his blood pressure though does note urinary frequency.. He continues on metoprolol and lisinopril with good effect on his blood pressureas well..? He does monitor his blood pressures at home and does report normal readings.?Denies any vision issues, chest discomforts or headaches. [facility] Medical History Restrictive lung disease Dyspnea on exertion Surgical History No pertinent past surgical history Family History Father Colon cancer Mother Heart attack, Onset Age: 48 Son Leukemia Social History Housing: House Alcohol intake: current Alcohol intake frequency: a few times a month Alcohol type: beer Patient Tobacco Use Status: Former Tobacco user Tobacco use type: Cigarette Years Smoked: 15 +/- e-Cigarette/Vaping Use: Never Used Second Hand Smoke Exposure: No service: No Current occupational status: unemployed Cognitive needs: No Hearing needs: No Vision needs: Yes Questionnaire PHQ-9 Over the last 2 weeks, how often have you been bothered by any of the following problems? 1. Little interest or pleasure in doing things: not at all 2. Feeling down, depressed, or hopeless: not at all 3. Trouble falling or staying asleep, or sleeping too much: not at all 4. Feeling tired or having little energy: not at all 5. Poor appetite or overeating: not at all 6. Feeling bad about yourself - or that you are a failure or have let yourself or your family down: not at all 7. Trouble concentrating on things, such as reading the newspaper or watching television: not at all 8. Moving or speaking so slowly that other people could have noticed. Or the opposite - being so fidgety or restless that you have been moving around a lot more than usual: not at all 9. Thoughts that you would be better off or of hurting yourself in some way: not at all Total score: 0 Depression Screening Interpretation: Negative Depression Screening Done: Yes 33715 - PHQ-9 Billing: Yes Source: Developed by Drs. Christopher Vazquez, Majo Blanca, Compa No and colleagues, with an educational kassidy from [employer]. Thrive Questionnaire Date Thrive assessed: 05/06/24 I am a: Patient What is your living situation today?: I have a steady place to live Within the past 12 months, did the food you bought not last and you didn't have the money to get more?: Never true Within the past 12 months, did you worry whether your food would run out before you got money to buy more?: Never true Do you have trouble paying for medicines?: No Do you have trouble getting transportation to medical appointments?: No Do you have trouble paying your heating and electricity bill?: No Do you have trouble taking care of your child, family member or friend?: No Do you have trouble with day-to-day activities such as bathing, preparing meals, shopping, managing finances, etc.?: No Are you currently unemployed and looking for a job?: No Are you interested in more education?: No Please select the resources that you would like help with: None Currently or been in a relationship where the following occur: No concerns reported THRIVE Score: 0 AUDIT C Alcohol Use Questionnaire (AUDIT-C) 1. How often do you have a drink containing alcohol?: Never Total Score: 0 HEAVENLY-7 AMB Questionnaire HEAVENLY-7 Date HEAVENLY - 7 assessed: 05/06/24 Feeling nervous, anxious, or on edge: 0 = Not at all Not being able to stop or control worryin = Not at all Worrying too much about different things: 0 = Not at all Trouble relaxin = Not at all Being so restless that it is hard to sit still: 0 = Not at all Becoming easily annoyed or irritable: 0 = Not at all Feeling afraid as if something awful might happen: 0 = Not at all Total HEAVENLY-7 score (0-4 normal; 5-9 mild; 10-14 moderate; 15-21 severe): 0 Source: Developed by Drs. Christopher Vazquez, Majo Blanca, Compa No and colleagues, with an educational kassidy from [employer]. HEAVENLY-7 Assessment Billing HEAVENLY-7 Assessment Tool: HEAVENLY-7 Assessment 37881 Review of Systems Const Denies headache(s) Eyes Denies loss of vision ENT Denies vertigo, Denies dizziness, Denies headache(s) and Denies sore throat Card Denies chest pain, Denies leg edema and Denies lightheadedness Resp Denies cough, Denies hemoptysis and Denies wheezing GI Denies abdominal pain, Denies melena, Denies constipation, Denies diarrhea and Denies vomiting Denies dysuria, Denies urinary frequency and Denies urinary urgency Musc Denies arthralgias, Denies joint swelling, Denies numbness and Denies tingling Neuro Denies Abnormal speech present, Denies behavioral changes, Denies vertigo, Denies dizziness, Denies headache(s), Denies loss of vision, Denies memory loss, Denies numbness and Denies tingling Psych Denies anxiety, Denies behavioral changes, Denies depression, Denies memory loss and Denies panic attacks Kyree/Lymph Denies easy bleeding and Denies easy bruising Aller/Immun Denies wheezing Physical exam (Primary Care) Vital Signs: Last Vital Signs Pulse 64 05/06/24 08:24 BP 132/82 05/06/24 08:24 Pulse Ox 98 05/06/24 08:24 Oxygen Delivery Method Room Air 05/06/24 08:24 BMI result Body Mass Index 70.1 BMI Assessment/Plan discussion: High BMI High, discussed plan: lifestyle, weight reduction, dietary and physical activity Tobacco/Smoking Status: Tobacco use Status Tobacco use date assessed 05/06/24 05/06/24 08:31 Patient Tobacco Use Status Former Tobacco user 05/06/24 08:24 Tobacco use type Cigarette 03/27/25 08:24 e-Cigarette/Vaping Use Never Used 05/06/24 08:24 PHQ-9: PHQ-9 Score PHQ-9: Total score 0 05/06/24 08:31 Depression Screening Interpretation: Negative Thrive Assessment: Date of Thrive Assessment Date Thrive assessed 05/06/24 05/06/24 08:24 Currently or been in a relationship where the following occur: No concerns reported Const General: healthy appearing, no acute distress, alert and awake Nutritional Appearance: well nourished Orientation/consciousness: oriented to person, oriented to place and oriented to time HENMT Ears: TM's normal bilaterally General nose exam: Normal nasal mucous membranes and turbinates present Eyes Conjunctivae: conjunctivae normal Sclerae: sclerae normal Pupils: Equal, round and reactive pupils present Neck Neck: Yes no lymphadenopathy and Yes no JVD Thyroid: Thyroid normal Carotids: no bruits Resp Effort & Inspection: normal respiratory effort and not tachypneic Auscultation: no crackles, no rales, no rhonchi and no wheezes Cardio Rate: regular rate Rhythm: regular rhythm Heart sounds: no murmurs and normal S1 and S2 GI Palpation (GI): Soft to palpation, nontender, no hepatomegaly and no splenomegaly Auscultation: normal bowel sounds Skin General skin exam: no rashes or lesions noted and dry skin Neuro General: oriented to person, oriented to place and oriented to time Cranial nerves: Yes Equal, round and reactive pupils present Speech: No Abnormal speech present Gait exam (Neuro): Normal gait present Motor exam (neuro): no tremor noted Extrem Right upper extremity: full ROM Left upper extremity: full ROM Right lower extremity: full ROM; no edema Left lower extremity: full ROM; no edema Psych Mental Status: mental status grossly normal Speech and movement: Normal speech and movement present Affect: normal affect Attitude: cooperative Thought process: Normal thought process present Coding Level of Care Code Est Pt Level 4 (50797) Diagnoses Class 3 obesity E66.813 Essential hypertension I10 Hypertension type: essential hypertension BRET on CPAP G47.33; Z99.89 Additional Codes PHQ-9 - 42401 - PHQ-9 Billing: Yes ([id number]) HEAVENLY-7 Assessment Billing - HEAVENLY-7 Assessment Tool: HEAVENLY-7 Assessment 92992 ([id number]) Assessment & Plan Assessment & Plan (1) Class 3 obesity: Code(s): E66.813 - Obesity, class 3 Category: Medical Plan: Patient was previously and Wegovy which had allow him to lose more than 5% of his total body mass. His BMI was down his 60 aid in he reports a all time low weight at 410lbs unfortunately he reports insurance was not covering Wegovy anymore over last 2 months his hunger has come back and has gained weight. Due to his comorbidity of obstructive sleep apnea will try zepbound 2.5 mg and up titrate per protocol. Will follow-up in 8 weeks to evaluate the effectiveness of the medication. (2) HTN (hypertension): Comment: Stable Code(s): I10 - Essential (primary) hypertension Category: Medical Qualifiers: Hypertension type: essential hypertension Qualified Code(s): I10 - Essential (primary) hypertension Plan: Patient's blood pressure acceptable today in office. Will continue his current dose antihypertensive medication with goal blood pressure to remain below 140/90 (3) BRET on CPAP: Comment: HE IS KNOWN TO HAVE SEVERE BRET WHICH IS WELL TREATED WITH CPAP, NASAL PILLOWS, PRESSURE 16 CM. HE IS VERY COMPLIANT AND BENEFITING.. Code(s): G47.33 - Obstructive sleep apnea (adult) (pediatric); Z99.89 - Dependence on other enabling machines and devices Category: Medical Plan: Ed is followed by pulmonology here in [place]. Continues to use a CPAP machine on a nightly basis with good effect. Orders: Orders Hemoglobin A1c Today R73.09 - Other abnormal glucose Complete Blood Count no Diff Today E11.9 - Type 2 diabetes mellitus without complications Prostate Specific Antigen Scr Today I10 - Essential (primary) hypertension, Z12.5 - Encounter for screening for malignant neoplasm of prostate Comprehensive Kramer. Panel Fast Today E11.9 - Type 2 diabetes mellitus without complications Lipid Panel Today I10 - Essential (primary) hypertension Medications: New tirzepatide (weight loss) (Zepbound) for 4 weeks 2.5 mg (0.5 mL) subcut QWEEK 4 weeks 2 mL 0RF E66.813 - Obesity, class 3, G47.33 - Obstructive sleep apnea (adult) (pediatric), Z99.89 - Dependence on other enabling machines and devices Discontinued semaglutide (weight loss) (Wegovy) Discontinued Reason: Doctor's Order 2.4 mg (0.75 mL) subcut QWEEK 4 weeks 3 mL 6RF E66.01 - Morbid (severe) obesity due to excess calories
[2024-05-06 08:24] VITALS: BP 132/82; PULSE 64; O2SAT 98; BMI 70.1
== END 2024-05-06 08:49 | disposition home or self-care (01) ==
LOC: HO.HMCH 08:06
PROVIDERS: PCP Physician Assistant; Visit Provider Physician Assistant
DX: I10 Essential (primary) hypertension (principal); E66.813 Obesity, class 3; Z68.45 Body mass index [BMI] 70 or greater, adult; G47.33 Obstructive sleep apnea (adult) (pediatric); Z99.89 Dependence on other enabling machines and devices

== ENCOUNTER → 2024-05-06 08:05 | Outpatient (BNVA) | payer OTHER, SELFPAY | PROVIDERS: PCP Physician Assistant; Visit Provider Physician Assistant | DX: E66.01 Morbid (severe) obesity due to excess calories (principal); E66.813 Obesity, class 3; I10 Essential (primary) hypertension; F32.9 Major depressive disorder, single episode, unspecified; G47.33 Obstructive sleep apnea (adult) (pediatric); E11.9 Type 2 diabetes mellitus without complications; Z68.45 Body mass index [BMI] 70 or greater, adult; Z87.891 Personal history of nicotine dependence; Z99.89 Dependence on other enabling machines and devices | CPT/HCPCS: 96127; 99212 ==

== ENCOUNTER 2024-08-24 09:23 | Outpatient (AMB) | payer OTHER, SELFPAY ==
[2024-08-24 09:25] VITALS: BP 124/62; PULSE 77; O2SAT 97; BMI 74.6
--- NOTE | 2024-08-24 09:25 | A.OFFVIS_ITS ---
Vital Signs 08/24/24 09:25 Height 5 ft 7 in Weight 476 lb 3.175 oz BMI 74.6 BP 124/62 Blood Pressure Location Lt radial Position Sitting Pulse 77 Pulse Source Pulse Oximeter Pulse Oximetry (%) 97 Oxygen Delivery Method Room Air Intake Visit Reasons: Obstructive sleep apnea Intake Note: Patient is here for a routine follow up, patient stated he has gained weight and feels SOB, patient stated he has not received supplies for his CPAP Machine. Allergies No Known Allergies Allergy (Verified 08/24/24 09:31) Do you need a note to return to daycare/school/sports/work: No HPI HPI Obstructive sleep apnea: Details: MIMI IS 48 YEARS OLD GENTLEMAN WITH SUPER MORBID OBESITY. FOR A WHILE WITH THE INJECTIONS OF ZEPBOUND HE HAD LOST ABOUT 30 LB OF WEIGHT BUT, THEN SOME HER OTHER IT WAS NOT COVERED BY INSURANCE SO HE HAS NOT RECEIVED THE INJECTIONS IN THE LAST 3-4 MONTHS. UNFORTUNATELY HE HAS REGAINED ALL THAT WEIGHT CURRENT BMI BEING 74.6 HE DOES USE THE CPAP VERY REGULARLY EVERY NIGHT AND SLEEPS WELL. THERE WAS A BREECH IN INSURANCE FOR A ,FEW MONTHS AND HE COULD NOT GET SUPPLIES. NOW HE HAS COMPLETED THE INFORMATION FOR INSURANCE , AND THINKS THAT HE WILL BE ABLE TO GET THE SUPPLIES WELL ZEPBOUND INJECTIONS. HE USES CPAP EVERY NIGHT UP TO 8 HOURS PER NIGHT AND SLEEPS WELL. [facility] Medical History Restrictive lung disease Dyspnea on exertion Surgical History No pertinent past surgical history Family History Father Colon cancer Mother Heart attack, Onset Age: 48 Son Leukemia Social History Housing: House Alcohol intake: current Alcohol intake frequency: a few times a month Alcohol type: beer Patient Tobacco Use Status: Former Tobacco user Tobacco use type: Cigarette Years Smoked: 15 +/- e-Cigarette/Vaping Use: Never Used Second Hand Smoke Exposure: No service: No Current occupational status: unemployed Cognitive needs: No Hearing needs: No Vision needs: Yes Review of Systems Const All systems reviewed & are unremarkable except as noted in HPI and below Eyes Reports no additional complaints ENT Reports nasal congestion (Mild intermittent) Card Denies chest pain, Denies irregular heart rhythm and Reports dyspnea on exertion Resp Reports dyspnea on exertion and Reports wheezing (Occasion) GI Reports no additional complaints Reports no additional complaints Musc Reports back pain Skin/Breast Reports system reviewed and no additional complaints, except as documented Neuro Reports no additional complaints Psych Reports no additional complaints Aller/Immun Reports wheezing (Occasion) Physical Exam Vital Signs: Last Vital Signs Pulse 77 08/24/24 09:25 BP 124/62 08/24/24 09:25 Pulse Ox 97 08/24/24 09:25 Oxygen Delivery Method Room Air 08/24/24 09:25 BMI result Body Mass Index 74.6 He is grossly overweight, with a large round face, Const Other: WEIGHT IS DOWN BY 41 LB General: comfortable, no acute distress, alert and awake Orientation/consciousness: patient oriented x3 HEENT Head: Yes normal to inspection General nose exam: No nasal polyps present and No nasal discharge present Face and sinus: Yes sinuses nontender Mouth: oropharynx abnormals (Very narrow and crowded oropharynx, Mallampati class 4) Throat: Yes posterior oropharynx normal Eyes General: appearance normal, both eyes and all related structures Neck Neck: Yes normal visual inspection, Yes no lymphadenopathy, Yes trachea midline, Yes no JVD and Yes other (Grossly obese) Thyroid: Thyroid normal Chest Chest palpation & inspection: normal inspection of the chest, normal palpation of entire chest wall and no tenderness Resp Other: Percussion note is not perceptible, breath sounds are very distant, But no wheezes rhonchi or crepitations are heard . Cardio Palpation: normal PMI Rate: regular rate Rhythm: regular rhythm Heart sounds: no gallops and no murmurs Peripheral pulses: Peripheral pulses 2+ throughout GI Palpation (GI): Soft to palpation, nontender, No hepatosplenomegaly present, no masses and Other GI palpation findings present (Abdomen grossly obese and protuberant) Auscultation: normal bowel sounds Back/Spine/Pelvis Thoracic/Lumbar Spine: thoracic and lumbar spine normal to inspection and thoraco-lumbar ROM limited Skin General skin exam: no rashes or lesions noted Neuro General: patient oriented x3 and no focal motor deficits Cranial nerves: Yes CN's II-XII intact bilaterally Extrem General: Yes normal to inspection, Yes no clubbing, cyanosis or edema and Yes no calf tenderness Psych Appearance: grossly normal and well kempt Speech and movement: Normal speech and movement present Results Reviewed Results Reviewed: THE COMPLIANCE REPORT IS FROM MARCH 12 TO APRIL 10 AND AFTERWARD THERE HAS BEEN NO TRANSMISSION. IN THIS REPORT HIS USAGE HAS BEEN 90% OF THE NIGHTS WITH AVERAGE USE PER NIGHT 8 HOURS 39 MINUTES, AND RESIDUAL AHI ONLY 0.5 HE DOES CLAIMS THAT HE HAS BEEN USING THE CPAP UP UNTIL NOW Assessment & Plan Assessment & Plan (1) Morbid obesity: Comment: He has super morbid obesity, has was started on Zepbound injections, and lost 41 lb of weight. but subsequently he is not been able to get the injection due to insura.nce issues . he has regained all that weight back and current BMI 74.6. this is. terrible Code(s): E66.01 - Morbid (severe) obesity due to excess calories Category: Surgical Plan: I advised him to have a visit with the primary care physician, discuss this issue and try to get back on the injections. he should also join a weight management program. (2) BRET on CPAP: Comment: HE IS KNOWN TO HAVE SEVERE BRET WHICH IS WELL TREATED WITH CPAP, NASAL PILLOWS, PRESSURE 16 CM. HE IS VERY COMPLIANT AND BENEFITING.. Most recent compliance report is not available. Code(s): G47.33 - Obstructive sleep apnea (adult) (pediatric); Z99.89 - Dependence on other enabling machines and devices Category: Medical Plan: Advise that he should use CPAP very regularly. we will send order for new supplies. (3) Restrictive lung disease: Comment: PER PREVIOUS PULMONARY FUNCTION TEST HE DOES HAVE SIGNIFICANT RESTRICTIVE LUNG DISEASE. THIS IS MAINLY BECAUSE OF HIS MORBID OBESITY, Code(s): J98.4 - Other disorders of lung Category: Medical Plan: Again discussed about weight loss program. He needs to continue doing deep breathing exercises 3 times a day. Coding Level of Care Code Est Pt Level 3 (51087) Diagnoses Morbid obesity E66.01 BRET on CPAP G47.33; Z99.89 Restrictive lung disease J98.4
--- OUTSIDE RECORDS SUMMARY | 2024-08-24 09:53 | XMS_ITS | Patient Health Record ---
Author Organization [facility] Address [address] [place] [address] Care Team Providers Care Water Tester Name Role Phone Norris Keller Jr Reason For Referral No Information Plan Of Treatment No Information
--- OUTSIDE RECORDS SUMMARY | 2024-08-24 09:53 | XMS_ITS | Encounter Summary ---
Author Organization [facility] Address [address] [place] [address] Care Team Providers Care Bore Miner Operator Name Role Phone Unavailable Primary Care Provider Unavailabl e Encounter Details Date Type Department Care Team (Latest Contact Info) Description 04/16/2021 Abstract [facility] CONVERSIONS Dental, Provider, DDS Social History Tobacco Use Types Packs/Day Years Used Date Smoking Tobacco: Never Assessed Sex and Gender Information Value Date Recorded Sex Assigned at Male 12/10/2021 10:15 AM EDT Legal Sex Male 10:15 AM EDT Gender Identity Male 12/10/2021 10:15 AM EDT Sexual Orientation Straight 12/10/2021 10 :15 AM EDT documented as of this encounter Plan of Treatment Not on file documented as of this encounter Visit Diagnoses Not on filedocumented in this encounter
== END 2024-08-24 09:47 | disposition home or self-care (01) ==
LOC: HO.HPS 09:23
PROVIDERS: PCP Physician Assistant; Visit Provider Internal Medicine
DX: E66.01 Morbid (severe) obesity due to excess calories (principal); G47.33 Obstructive sleep apnea (adult) (pediatric); Z99.89 Dependence on other enabling machines and devices; J98.4 Other disorders of lung
CPT/HCPCS: 99213

== ENCOUNTER → 2024-08-24 09:23 | Outpatient (BNVA) | payer OTHER, SELFPAY | PROVIDERS: PCP Physician Assistant; Visit Provider Internal Medicine | DX: G47.33 Obstructive sleep apnea (adult) (pediatric) (principal); E66.01 Morbid (severe) obesity due to excess calories; J98.4 Other disorders of lung | CPT/HCPCS: 99212 ==

== ENCOUNTER 2024-09-06 08:54 | Outpatient (REF) | payer OTHER, SELFPAY ==
[2024-09-06 09:25] LABS: Hematocrit 40.8 % (42.0-52.0); Hemoglobin 13.4 g/dl (14.0-18.0); Mean Corpuscular HGB Conc 32.8 g/dl (31.0-36.0); Mean Corpuscular Hemoglobin 29.6 pg (27.0-33.0); Mean Corpuscular Volume 90.3 fL (80.0-98.0); NRBC Abs Auto 0.000 X10*3/uL (0.0-0.012); NRBC Pct Auto 0.0 /100WBC (0.0-0.2); Platelet Count 233 X10*3/uL (160-400); Red Blood Count 4.52 X10*6/uL (4.60-5.80); White Blood Count 7.0 X10*3/uL (4.8-10.8)
--- OUTSIDE RECORDS SUMMARY | 2024-09-06 09:28 | XMS_ITS | Patient Health Record ---
Author Organization [facility] Address [address] [place] [address] Care Team Providers Care Denture Technician Name Role Phone Norris Keller Jr Reason For Referral No Information Plan Of Treatment No Information
--- OUTSIDE RECORDS SUMMARY | 2024-09-06 09:28 | XMS_ITS | Encounter Summary ---
Author Organization [facility] Address [address] [place] [address] Care Team Providers Care Shield Cleaner Name Role Phone Unavailable Primary Care Provider [...]
[2024-09-06 09:32] LABS: Hemoglobin A1C 146.6816 umol/L; Total Hemoglobin (HGBA1C) 3551.9598 umol/L
[2024-09-06 09:55] LABS: Alanine Aminotransferase 26 U/L (0-40); Albumin Level 4.1 g/dL (3.5-5.0); Alkaline Phosphatase 75 U/L (39-117); Anion Gap 11 (12-20); Aspartate Amino Transferase 33 U/L (5-37); Blood Urea Nitrogen 10 mg/dL (9-16); Calcium 9.2 mg/dL (8.4-10.2); Carbon Dioxide 28 mmol/L (22-29); Chloride 107 mmol/L (96-108); Cholesterol 176 mg/dL (<200); Estimated Glomerular Filt Rate > 60; HDL Cholesterol 36 mg/dL (>40); Potassium 4.4 mmol/L (3.3-5.1); Sodium 142 mmol/L (135-145); Total Protein 7.6 g/dL (6.5-8.0); Triglycerides 149 mg/dL (<150)
== END 2024-09-06 08:55 | disposition home or self-care (01) ==
LOC: HO.LAB 08:54
PROVIDERS: PCP Physician Assistant; Visit Provider Physician Assistant
DX: Z12.5 Encounter for screening for malignant neoplasm of prostate (principal); I10 Essential (primary) hypertension; E11.9 Type 2 diabetes mellitus without complications
CPT/HCPCS: 36415; 80053; 80061; 83036; 84153; 85027

== ENCOUNTER 2024-09-09 08:19 | Outpatient (AMB) | payer OTHER, SELFPAY ==
--- NOTE | 2024-09-09 08:23 | A.OFFPC_ITS ---
Vital Signs 3 09/09/24 08:24 Height 5 ft 7 in Weight 474 lb 3.429 oz BMI 74.3 BP 130/60 Blood Pressure Location Lt brachial Position Sitting Pulse 66 Pulse Source Pulse Oximeter Temp 97.1 F Temp Source Temporal Artery Scan Pulse Oximetry (%) 95 Oxygen Delivery Method Room Air Intake Visit Reasons: f/u weight check A1C needed Intake Note: Patient is here to follow up on Weight check. Catering And Events Manager Required: No Distribution Clerk: Not Required per policy Accompanied by: Self / Same As Patient Allergies No Known Allergies Allergy (Verified 09/09/24 08:34) Medication List - Last Reconciled 09/09/24 by Delmer Wilkinson PA-C cetirizine 10 mg PO DAILY 90 days chlorthalidone 25 mg PO DAILY cholecalciferol (vitamin D3) 50 mcg PO DAILY fluticasone propionate 50 mcg/actuation 1 spray intranasal DAILY PRN iron,carbonyl-vitamin C 65 mg iron- 125 mg (Vitron-C) 1 tab PO BEDTIME lisinopril 20 mg PO DAILY meloxicam 15 mg PO DAILY 30 days metoprolol succinate ER 50 mg PO DAILY pantoprazole 20 mg PO DAILY sennosides (Senna Lax) 17.2 mg (2 x 8.6 mg) PO BEDTIME PRN 90 days tizanidine 4 mg PO TID PRN 30 days Tobacco use date assessed: 09/09/24 Dental Screening Dental Screen Date: 05/06/24 HPI f/u weight check A1C needed 2 HPI0 Details Wally is a 48 year old male here today for a follow-up visit . Patient has a pmhx significant for Morbid obesity, Sleep apnea, chronic knee/ lumbar spine pain, hypertension, major depressive disorder, Concern--> The patient experiences discomfort due to a large mass on his side, suspected to be lymphedema, which causes pain and rashes during physical activity. He has attempted to manage this with compression garments and powder, but the issue persists. ., . Morbid obesity and obstructive sleep apnea: Patient's BMI is at 74, he is 474 lb. He was previously on GLP 1 and was were able to lose 30-50 lb and did not report any side effects from GL put 1 therapy. Did get some better glycemic control when he was on GLP 1. PLAN: Will try to restart GLP 1 (Zepbound) ? medical necessity for GLP 1 ? ? ? Morbid obesity:? Has started Wegovy previously and has lost significant amount of weight. He was able to get his BMI down to 60 while on Wegovy. He did report a low weight of 410 lb at the time. Unfortunately insurance has not been covering Wegovy over last 2 months . Unfortunately since being off of GLP 1 therapy has gained as her plus amount of weight back. Patient's current BMI is 74 and now 474 lb When taking Wegovy he reported he has been a bit more physically active doing more walks in his neighborhood. His fasting blood sugar has improved as well and also has chronic anemia has stabilized. . ? BRET: Using CPAP on nightly basis? , is followed by Dr. Zhou.? Headaches since resolved since using CPAP nightly. ? .. ? HTN:? Blood pressure today in office acceptable. Was recently placed back on diuretic and reports better control his blood pressure though does note urinary frequency.. He continues on metoprolol and lisinopril with good effect on his blood pressureas well..? He does monitor his blood pressures at home and does report normal readings.?Denies any vision issues, chest discomforts or headaches. [facility] Medical History Restrictive lung disease Dyspnea on exertion Surgical History No pertinent past surgical history Family History Father Colon cancer Mother Heart attack, Onset Age: 48 Son Leukemia Social History Housing: House Alcohol intake: current Alcohol intake frequency: a few times a month Alcohol type: beer Patient Tobacco Use Status: Former Tobacco user Tobacco use type: Cigarette Years Smoked: 15 +/- e-Cigarette/Vaping Use: Never Used Second Hand Smoke Exposure: Yes service: No Current occupational status: unemployed Cognitive needs: No Hearing needs: No Vision needs: Yes Questionnaire PHQ-9 Over the last 2 weeks, how often have you been bothered by any of the following problems? 1. Little interest or pleasure in doing things: several days 2. Feeling down, depressed, or hopeless: not at all 3. Trouble falling or staying asleep, or sleeping too much: not at all 4. Feeling tired or having little energy: not at all 5. Poor appetite or overeating: not at all 6. Feeling bad about yourself - or that you are a failure or have let yourself or your family down: not at all 7. Trouble concentrating on things, such as reading the newspaper or watching television: not at all 8. Moving or speaking so slowly that other people could have noticed. Or the opposite - being so fidgety or restless that you have been moving around a lot more than usual: not at all 9. Thoughts that you would be better off or of hurting yourself in some way: not at all Total score: 1 Depression Screening Interpretation: Positive Depression Screening Done: Yes Source: Developed by Drs. Christopher Vazquez, Majo Blanca, Compa No and colleagues, with an educational kassidy from [employer]. Thrive Questionnaire Date Thrive assessed: 09/09/24 I am a: Patient What is your living situation today?: I have a steady place to live Within the past 12 months, did the food you bought not last and you didn't have the money to get more?: I choose not to answer this question Within the past 12 months, did you worry whether your food would run out before you got money to buy more?: Sometimes True Do you have trouble paying for medicines?: Yes Do you have trouble getting transportation to medical appointments?: Yes Do you have trouble paying your heating and electricity bill?: Yes Do you have trouble taking care of your child, family member or friend?: Yes Do you have trouble with day-to-day activities such as bathing, preparing meals, shopping, managing finances, etc.?: Yes Are you currently unemployed and looking for a job?: Yes Are you interested in more education?: No Please select the resources that you would like help with: Daily support Currently or been in a relationship where the following occur: I choose not to answer THRIVE Score: 3 AUDIT C Alcohol Use Questionnaire (AUDIT-C) 1. How often do you have a drink containing alcohol?: Never Total Score: 0 HEAVENLY-7 AMB Questionnaire HEAVENLY-7 Date HEAVENLY - 7 assessed: 09/09/24 Feeling nervous, anxious, or on edge: 0 = Not at all Not being able to stop or control worryin = Not at all Worrying too much about different things: 0 = Not at all Trouble relaxin = Not at all Being so restless that it is hard to sit still: 0 = Not at all Becoming easily annoyed or irritable: 0 = Not at all Feeling afraid as if something awful might happen: 0 = Not at all Total HEAVENLY-7 score (0-4 normal; 5-9 mild; 10-14 moderate; 15-21 severe): 0 Source: Developed by Drs. Christopher Vazquez, Majo Blanca, Compa No and colleagues, with an educational kassidy from [employer]. Review of Systems Const Denies headache(s) Eyes Denies loss of vision ENT Denies vertigo, Denies dizziness, Denies headache(s) and Denies sore throat Card Denies chest pain, Denies leg edema and Denies lightheadedness Resp Denies cough, Denies hemoptysis and Denies wheezing GI Denies abdominal pain, Denies melena, Denies constipation, Denies diarrhea and Denies vomiting Denies dysuria, Denies urinary frequency and Denies urinary urgency Musc Denies arthralgias, Denies joint swelling, Denies numbness and Denies tingling Neuro Denies Abnormal speech present, Denies behavioral changes, Denies vertigo, Denies dizziness, Denies headache(s), Denies loss of vision, Denies memory loss, Denies numbness and Denies tingling Psych Denies anxiety, Denies behavioral changes, Denies depression, Denies memory loss and Denies panic attacks Kyree/Lymph Denies easy bleeding and Denies easy bruising Aller/Immun Denies wheezing Physical exam (Primary Care) Vital Signs: Last Vital Signs Temp 97.1 F 09/09/24 08:24 Pulse 66 09/09/24 08:24 BP 130/60 09/09/24 08:24 Pulse Ox 95 09/09/24 08:24 Oxygen Delivery Method Room Air 09/09/24 08:24 BMI result Body Mass Index 74.3 BMI Assessment/Plan discussion: High BMI High, discussed plan: lifestyle, weight reduction, dietary and physical activity Tobacco/Smoking Status: Tobacco use Status Tobacco use date assessed 09/09/24 09/09/24 08:29 Patient Tobacco Use Status Former Tobacco user 09/09/24 08:24 Tobacco use type Cigarette 09/09/24 08:24 e-Cigarette/Vaping Use Never Used 09/09/24 08:24 PHQ-9: PHQ-9 Score PHQ-9: Total score 1 09/09/24 08:29 Depression Screening Interpretation: Positive Thrive Assessment: Date of Thrive Assessment Date Thrive assessed 09/09/24 09/09/24 08:29 Currently or been in a relationship where the following occur: I choose not to answer Const Other: MorbidlyObese General: healthy appearing, no acute distress, alert and awake Nutritional Appearance: well nourished Orientation/consciousness: oriented to person, oriented to place and oriented to time HENMT Ears: TM's normal bilaterally General nose exam: Normal nasal mucous membranes and turbinates present Eyes Conjunctivae: conjunctivae normal Sclerae: sclerae normal Pupils: Equal, round and reactive pupils present Neck Neck: Yes no lymphadenopathy and Yes no JVD Thyroid: Thyroid normal Carotids: no bruits Resp Effort & Inspection: normal respiratory effort and not tachypneic Auscultation: no crackles, no rales, no rhonchi and no wheezes Cardio Rate: regular rate Rhythm: regular rhythm Heart sounds: no murmurs and normal S1 and S2 GI Palpation (GI): Soft to palpation, nontender, no hepatomegaly and no splenomegaly Auscultation: normal bowel sounds Skin General skin exam: no rashes or lesions noted and dry skin Neuro General: oriented to person, oriented to place and oriented to time Cranial nerves: Yes Equal, round and reactive pupils present Speech: No Abnormal speech present Gait exam (Neuro): Normal gait present Motor exam (neuro): no tremor noted Extrem Right upper extremity: full ROM Left upper extremity: full ROM Right lower extremity: full ROM; no edema Left lower extremity: full ROM; no edema Upper/lower leg/hip images: 2 1. LARGE LOCALIZED LYMPHEDEMA NOTED IN THE RIGHT UPPER/INNER THIGH Psych Mental Status: mental status grossly normal Speech and movement: Normal speech and movement present Affect: normal affect Attitude: cooperative Thought process: Normal thought process present Coding Level of Care Code Est Pt Level 4 (61884) Diagnoses Class 3 obesity E66.813 BRET on CPAP G47.33; Z99.89 Lymphedema I89.0 Essential hypertension I10 Hypertension type: essential hypertension Assessment & Plan Assessment & Plan (1) Class 3 obesity: Code(s): E66.813 - Obesity, class 3 Category: Medical Plan: The patient is considering Zepbound injections to aid in weight lossAND CONTROL OF HIS OBSTRUCTIVE SLEEP APNEA, and a gradual increase in dosage was discussed. Aquatic exercise was recommended to reduce physical discomfort and promote weight loss. (2) BRET on CPAP: Comment: HE IS KNOWN TO HAVE SEVERE BRET WHICH IS WELL TREATED WITH CPAP, NASAL PILLOWS, PRESSURE 16 CM. HE IS VERY COMPLIANT AND BENEFITING.. Most recent compliance report is not available. Code(s): G47.33 - Obstructive sleep apnea (adult) (pediatric); Z99.89 - Dependence on other enabling machines and devices Category: Medical Plan: Obstructive sleep apnea is a contributing factor to the patient's anemia and weight issues. No specific treatment changes were discussed during this visit. (3) Lymphedema: Code(s): I89.0 - Lymphedema, not elsewhere classified Category: Medical Plan: The patient experiences discomfort due to lymphedema, and a vascular referral for lymphedema massage and wrappings was suggested. (4) HTN (hypertension): Comment: Stable Code(s): I10 - Essential (primary) hypertension Category: Medical Qualifiers: Hypertension type: essential hypertension Qualified Code(s): I10 - Essential (primary) hypertension Plan: Patient's blood pressure acceptable today in office. Will continue his current dose antihypertensive medication with goal blood pressure to remain below 140/90 Orders: Orders 2 Comprehensive [place]. Panel Fast Today R73.09 - Other abnormal glucose Hemoglobin A1c Today R73.09 - Other abnormal glucose Complete Blood Count no Diff Today R73.09 - Other abnormal glucose Referrals 2 Vascular Surgery Referral I89.0 - Lymphedema, not elsewhere classified Medications: New 2 tirzepatide (weight loss) (Zepbound) for 4 weeks 2.5 mg (0.5 mL) subcut QWEEK 2 mL 0RF 4 weeks E66.813 - Obesity, class 3, G47.33 - Obstructive sleep apnea (adult) (pediatric), Z99.89 - Dependence on other enabling machines and devices
[2024-09-09 08:24] VITALS: BP 130/60; PULSE 66; TEMP 36.2; O2SAT 95; BMI 74.3
--- OUTSIDE RECORDS SUMMARY | 2024-09-09 08:28 | XMS_ITS | Encounter Summary ---
Author Organization [facility] Address [address] [place] [address] Care Team Providers Care Public Speaking Coach Name Role Phone Unavailable Primary Care Provider [...]
--- OUTSIDE RECORDS SUMMARY | 2024-09-09 08:28 | XMS_ITS | Patient Health Record ---
Author Organization [facility] Address [address] [place] [address] Care Team Providers Care Hall Clerk Name Role Phone Norris Keller Jr Reason For Referral No Information Plan Of Treatment No Information
== END 2024-09-09 08:56 | disposition home or self-care (01) ==
LOC: HO.HMCH 08:20
PROVIDERS: PCP Physician Assistant; Visit Provider Physician Assistant
DX: G47.33 Obstructive sleep apnea (adult) (pediatric) (principal); E66.813 Obesity, class 3; Z68.45 Body mass index [BMI] 70 or greater, adult; Z99.89 Dependence on other enabling machines and devices; I89.0 Lymphedema, not elsewhere classified; I10 Essential (primary) hypertension

== ENCOUNTER → 2024-09-09 08:19 | Outpatient (BNVA) | payer OTHER, SELFPAY | PROVIDERS: PCP Physician Assistant; Visit Provider Physician Assistant | DX: E66.813 Obesity, class 3 (principal); Z68.45 Body mass index [BMI] 70 or greater, adult; G47.33 Obstructive sleep apnea (adult) (pediatric); I89.0 Lymphedema, not elsewhere classified; I10 Essential (primary) hypertension; Z79.899 Other long term (current) drug therapy; Z99.89 Dependence on other enabling machines and devices; Z13.31 Encounter for screening for depression; Z13.39 Encounter for screening examination for other mental health and behavioral disorders | CPT/HCPCS: 99212 ==

== ENCOUNTER 2024-09-29 09:13 | Outpatient (AMB) | payer OTHER, SELFPAY ==
--- NOTE | 2024-09-29 09:29 | A.OFFVIS_ITS ---
Vital Signs 09/29/24 09:32 Height 5 ft 7 in Weight 477 lb 8.34 oz BMI 74.8 BP 130/70 Blood Pressure Location Lt radial Position Sitting Pulse 69 Pulse Source Monitor Intake Visit Reasons: 1 yr follow up Intake Note: 1 yr f/up Sewing Machine Adjuster Required: No Accompanied by: Self / Same As Patient Allergies No Known Allergies Allergy (Verified 09/09/24 08:34) Medication List - Last Reconciled 09/29/24 by Jun Romero MD cetirizine 10 mg PO DAILY 90 days chlorthalidone 25 mg PO DAILY cholecalciferol (vitamin D3) 50 mcg PO DAILY fluticasone propionate 50 mcg/actuation 1 spray intranasal DAILY PRN iron,carbonyl-vitamin C 65 mg iron- 125 mg (Vitron-C) 1 tab PO BEDTIME lisinopril 20 mg PO DAILY meloxicam 15 mg PO DAILY 30 days metoprolol succinate ER 50 mg PO DAILY pantoprazole 20 mg PO DAILY sennosides (Senna Lax) 17.2 mg (2 x 8.6 mg) PO BEDTIME PRN 90 days tirzepatide (weight loss) (Zepbound) 2.5 mg (0.5 mL) subcut QWEEK 4 weeks tizanidine 4 mg PO TID PRN 30 days HPI Comments Details: Pleasant 47-year-old gentleman with morbid obesity here for follow-up. Blood pressure control is good. He is denying any chest discomfort. He is saying he is back in to exercise and has been regularly exercising and has lost some weight. Denying any worsening shortness of breath. Overall clinically stable. He previously had exercise stress testing which was abnormal and underwent cardiac catheterization which showed no coronary artery disease. 09/25/2022: He is here for perioperative cardiovascular risk assessment. He previously was following with bariatric surgery but developed depression and decided not to undergo bariatric surgery. He is now returning and has been following closely with weight management program. He has lost a lot of weight with diet and exercise this point. Denying any chest discomfort. Blood pressure control is also good at this point. He is motivated what weight loss and is seriously considering bariatric surgery at this point. : He returns for follow-up. He has been using Wegovy but he has not lost any weight. His blood pressure is elevated. He previously was on a thiazide diuretic but it appears he has not been on that recently. Denying any chest pain or shortness of breath. 09/29/24: Here for follow-up. He has gained significant more weight. He said his son was diagnosed with cancer and he was under stress and was eating more. Taking medications regularly. No concerns otherwise to report. [facility] Medical History Restrictive lung disease Dyspnea on exertion Surgical History No pertinent past surgical history Family History Father Colon cancer Mother Heart attack, Onset Age: 48 Son Leukemia Social History Housing: House Alcohol intake: current Alcohol intake frequency: a few times a month Alcohol type: beer Patient Tobacco Use Status: Former Tobacco user Tobacco use type: Cigarette Years Smoked: 15 +/- e-Cigarette/Vaping Use: Never Used Second Hand Smoke Exposure: Yes service: No Current occupational status: unemployed Cognitive needs: No Hearing needs: No Vision needs: Yes Review of Systems Const Denies chills, Denies fatigue, Denies fever(s), Denies frequent falls, Denies weakness, Denies weight gain and Denies weight loss ENT Denies dizziness Card Denies chest pain, Denies leg edema, Denies lightheadedness, Denies palpitations, Denies dyspnea and Denies dyspnea on exertion Resp Denies cough, Denies dyspnea and Denies dyspnea on exertion GI Denies hematochezia Musc Denies abnormal gait, Denies muscle weakness, Denies numbness, Denies radiating pain into limb and Denies tingling Neuro Denies abnormal gait, Denies dizziness, Denies frequent falls, Denies numbness, Denies tingling and Denies weakness Endo Denies fatigue and Denies palpitations Physical Exam Vital Signs: Last Vital Signs Pulse 69 09/29/24 09:32 BP 130/70 09/29/24 09:32 BMI result Body Mass Index 74.8 GENERAL APPEARANCE: in no acute distress, morbidly obese. NECK/THYROID: no carotid bruit, no jugular venous distention. SKIN: no suspicious lesions, warm and dry. HEART: no murmurs, regular rate and rhythm, S1, S2 normal. LUNGS: clear to auscultation bilaterally. ABDOMEN: normal, bowel sounds present, soft, nontender, distended. EXTREMITIES: no clubbing, cyanosis. Trace edema. PERIPHERAL PULSES: equal. NEUROLOGIC: nonfocal, alert and oriented. PSYCH: mood/affect full range. Office Procedures EKG Details: Sinus rhythm 69 beats per minute, normal axis, normal EKG, QTC is 441 milliseconds [id number], Complete Assessment & Plan Assessment & Plan (1) HTN (hypertension): Comment: Stable Code(s): I10 - Essential (primary) hypertension Category: Medical Qualifiers: Hypertension type: essential hypertension Qualified Code(s): I10 - Essential (primary) hypertension (2) Morbid obesity: Comment: Code(s): E66.01 - Morbid (severe) obesity due to excess calories Category: Surgical Plan [age] year gentleman who is here for follow-up. He has morbid obesity and hypertension. He also sleep apnea and uses CPAP. His blood pressure is reasonably controlled currently and he is taking chlorthalidone, metoprolol succinate and lisinopril. He has gained significant more weight unfortunately. His son got diagnosed with cancer and under stress he was eating more. We discussed again that his main problem currently is morbid obesity and if he can lose weight a lot of his medical problems can improve. I am referring him again to weight management program. I have tried to motivate him to start dieting and exercise. He will follow up with us as before. Thank you for allowing me to participate in the care of your patient. Please feel free to contact me if you have any questions. Orders: Referrals Medical Weight Management Referral E66.01 - Morbid (severe) obesity due to excess calories Coding Level of Care Code Est Pt Level 3 (38249) Diagnoses Essential hypertension I10 Hypertension type: essential hypertension Morbid obesity E66.01 CPT Codes EKG - CPT: 44700-[id number], Complete ([id number])
[2024-09-29 09:32] VITALS: BP 130/70; PULSE 69; BMI 74.8
--- OUTSIDE RECORDS SUMMARY | 2024-09-29 09:55 | XMS_ITS | Encounter Summary ---
Author Organization [facility] Address [address] [place] [address] Care Team Providers Care Regulatory Consultant Name Role Phone Unavailable Primary Care Provider [...]
--- OUTSIDE RECORDS SUMMARY | 2024-09-29 09:55 | XMS_ITS | Patient Health Record ---
Author Organization [facility] Address [address] [place] [address] Care Team Providers Care Flake Cutter Operator Name Role Phone Norris Keller Jr Reason For Referral No Information Plan Of Treatment No Information
== END 2024-09-29 09:54 | disposition home or self-care (01) ==
LOC: HO.HCS 09:14
PROVIDERS: PCP Physician Assistant; Visit Provider Internal Medicine Cardiovascular Disease
DX: I10 Essential (primary) hypertension (principal); E66.01 Morbid (severe) obesity due to excess calories
CPT/HCPCS: 93010; 99213

== ENCOUNTER → 2024-09-29 09:13 | Outpatient (BNVA) | payer OTHER, SELFPAY | PROVIDERS: PCP Physician Assistant; Visit Provider Internal Medicine Cardiovascular Disease | DX: I10 Essential (primary) hypertension (principal); E66.01 Morbid (severe) obesity due to excess calories | CPT/HCPCS: 93005; 99212 ==

== ENCOUNTER 2024-11-11 09:37 | Outpatient (AMB) | payer OTHER, SELFPAY ==
--- NOTE | 2024-11-11 09:41 | A.OFFVIS_ITS ---
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 Patient states he has a large bump on the right inner thigh, also on the left. Bilateral foot tingling, swelling. 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 He is morbidly obese with a BMI of 74.3. The swelling has been associated with a sensation of the legs falling asleep and tingling, particularly noticeable during sleep. The patient reports a history of multiple lipomas, with four or five previously removed from the back by Dr. Rao. The patient denies current smoking and diabetes, although he has a history of smoking in the past. It has been affecting there daily activities including walking. It is noted more so in right leg. Patient denies any previous venous surgery or injections. Patient denies any history of DVT/ PE. Patient denies any history of phlebitis. Trial of compression includes - non They now present for vascular evaluation regarding their varicose veins. [facility] Medical History Restrictive lung disease Dyspnea on exertion Surgical History No pertinent past surgical history Family History Father Colon cancer Mother Heart attack, Onset Age: 48 Son Leukemia Social History Housing: House Alcohol intake: current Alcohol intake frequency: a few times a month Alcohol type: beer Patient Tobacco Use Status: Former Tobacco user Tobacco use type: Cigarette Years Smoked: 15 +/- e-Cigarette/Vaping Use: Never Used Second Hand Smoke Exposure: Yes service: No Current occupational status: unemployed Cognitive needs: No Hearing needs: No Vision needs: Yes Review of Systems Const All systems reviewed & are unremarkable except as noted in HPI and below Reports no additional complaints ENT Reports Normal hearing present Card Denies chest pain, Denies chest pain at rest, Denies chest pain with activity and Denies pedal edema Resp Denies cough GI Denies abdominal pain Musc Denies abnormal gait, Denies muscle cramps and Denies radiating pain into limb Skin/Breast Denies skin ulcer and Denies wounds Neuro Reports Normal hearing present and Denies abnormal gait Psych Reports no additional complaints Physical Exam Const General: cooperative, healthy appearing and comfortable Orientation/consciousness: oriented to person, oriented to place and oriented to time HEENT Head: Yes normal to inspection Neck Neck: Yes normal visual inspection Carotids: no bruits Chest Chest palpation & inspection: normal inspection of the chest Resp Effort & Inspection: normal respiratory effort and able to speak in complete sentences Auscultation: clear to auscultation bilaterally, no crackles, no rales, no rhonchi and no wheezes Cardio Rate: regular rate Rhythm: regular rhythm Heart sounds: S1 normal heart sound present and S2 normal heart sound present Bruits: no carotid bruits Peripheral pulses: Peripheral pulses 2+ throughout GI Inspection: Yes normal to inspection Skin Wounds: no wounds Hair: normal Neuro General: oriented to person, oriented to place and oriented to time Cranial nerves: Yes CN's II-XII intact bilaterally and Yes Normal hearing present Cognition (Neuro): normal cognition Motor exam (neuro): 5/5 motor strength present throughout Extrem Other: venous exam: No significant superficial varicosities or spider telangiectasias, minimal edema General: No clubbing, No cyanosis and No edema Psych Appearance: grossly normal Mental Status: mental status grossly normal Speech and movement: Normal speech and movement present Assessment & Plan Assessment & Plan (1) Varicose veins of right lower extremity with inflammation: Code(s): I83.11 - Varicose veins of right lower extremity with inflammation Category: Medical Plan: In short patient has swelling of the right leg. The concern here is that may he may have an underlying lipoma in this area. I have taken the liberty of ordering right lower extremity venous insufficiency testing to rule that out. Should that prove to be negative he may need rereferral to Dr. Rao for evaluation of a lipoma. He will follow up with us after testing. Thank you for allowing us to assist in his care. Orders: Orders US venous duplex LE RT Today I83.11 - Varicose veins of right lower extremity with inflammation Coding Level of Care Code New Pt Level 4 (20177) Diagnoses Varicose veins of right lower extremity with inflammation I83.11
--- OUTSIDE RECORDS SUMMARY | 2024-11-11 10:38 | XMS_ITS | Patient Health Record ---
Author Organization [facility] Address [address] [place] [address] Care Team Providers Care Drum Handler Name Role Phone Norris Keller Jr Reason For Referral No Information Plan Of Treatment No Information
--- OUTSIDE RECORDS SUMMARY | 2024-11-11 10:38 | XMS_ITS | Clinical Summary ---
Author Organization [employer] Address [address] [place] [address] Care Team Providers Care Wood Filler Name Role Phone Unavailable Primary Care Provider Unavailabl e Allergies No known active allergies Medications lisinopril 10 MG tablet Take by mouth Once per day. Active Active Problems Problem Noted Date Diagnosed Date Fracture of complete denture 02/06/2024 Ill-fitting dentures 02/05/2024 Social History Tobacco Use Types Packs/Day Years Used Date Smoking Tobacco: Never Passive Smoke Exposure: Never Smokeless Tobacco: Never Tobacco Cessation:Counseling Given: No Alcohol Use Standard Drinks/Week Comments Never 0 (1 standard drink = 0.6 oz pur e alcohol) Sex and Gender Information Value Date Recorded Sex Assigned at Male 12/10/2021 10:15 AM EDT Legal Sex Male 10:15 AM EDT Gender Identity Male 12/10/2021 10:15 AM EDT Sexual Orientation Straight 12/10/2021 10 :15 AM EDT Last Filed Vital Signs Vital Sign Reading Time Taken Comments Blood Pressure 138/74 02/06/2024 3:45 PM EST Pulse - - Temperature - - Respiratory Rate - - Oxygen Saturation - - Inhaled Oxygen Concentration - - Weight - - Height - - Body Mass Index - - Plan of Treatment Health Maintenance Due Date Last Done Comments CT Colonography 1973 Colonoscopy 1973 Colorectal Cancer Screening 1973 Depression Screening 1973 FIT DNA/Cologuard 1973 FIT 1973 FOBT 1973 HIV Screening 1973 Lipid Panel 1973 SDOH Screening 1973 Sigmoidoscopy 1973 Disability Screening 1973 Alcohol/Substance Use Screening 1985 Family Planning (PISQ) 1988 Hepatitis C Screening 11/01/1991 Hepatitis B Vaccines (1 of 3 - 19+ 3-dose series) 1992 Dental X-Ray: Bitewings 10/01/2019 09/29/2018 Dental Oral Exam 09/27/2021 03/29/2021, 09/29/2018 Dental X-Ray: Full Mouth 09/30/2021 09/29/2018, 04/10 Dental Prophylaxis 10/18/2021 04/16/2021 Zoster Vaccines (1 of 2) 11/01/2023 COVID-19 Vaccine (3 - 2024- season) 2024 02/14/2021, 05/19/2020 Influenza Vaccine (#1) 2024 , 12/17/2022, 11/12/2021, Additional history exists Tobacco Screening 02/05/2025 02/06/2024 DTaP/Tdap/Td Vaccines (2 - Td or Tdap) 08/16/2027 08/15/2017 RSV Patients and Patients Aged 60 years or older (1 - 1-dose 75+ series) 2048 Pneumococcal Vaccine: 50+ Years Completed 12/17/2022, 01/16/2018 HIB Vaccines Aged Out No longer eligi ble based on patient's age to complete this topic HPV Vaccines Aged Out No longer eligi ble based on patient's age to complete this topic Hepatitis A Vaccines Aged Out No long er eligible based on patient's age to complete this topic IPV Vaccines Aged Out No longer eligi ble based on patient's age to complete this topic Meningococcal B Vaccine Aged Out No l onger eligible based on patient's age to complete this topic Meningococcal Vaccine Aged Out No alireza davis eligible based on patient's age to complete this topic RSV under 20 months Aged Out No longe r eligible based on patient's age to complete this topic Rotavirus Vaccines Aged Out No longer eligible based on patient's age to complete this topic Procedures Procedure Name Priority Date/Time Associated Diagnosis Comments PROPHYLAXIS - ADULT Routine 04/16/2021 1 2:00 AM EST PERIODIC ORAL EVALUATION - ESTABLISHED PATIENT Routine 03/29/2021 12:00 AM EST INTRAORAL - COMPLETE SERIES OF RADIOGRAPHIC IMAGES Routine 09/29/2018 12:00 AM EDT from Last 3 Months or Most Recently Relevant to Health Maintenance Insurance [place] [employer] [place] ADULT
--- OUTSIDE RECORDS SUMMARY | 2024-11-11 10:38 | XMS_ITS | Encounter Summary ---
Author Organization [facility] Address [address] [place] [address] Care Team Providers Care Jack [employer] All Trades Name Role Phone Unavailable Primary Care Provider [...]
== END 2024-11-11 09:54 | disposition home or self-care (01) ==
LOC: HO.HVS 09:38
PROVIDERS: PCP Physician Assistant; Visit Provider Surgery Vascular Surgery
DX: I83.11 Varicose veins of right lower extremity with inflammation (principal)
CPT/HCPCS: 99204

== ENCOUNTER → 2024-11-11 09:37 | Outpatient (BNVA) | payer OTHER, SELFPAY | PROVIDERS: PCP Physician Assistant; Visit Provider Surgery Vascular Surgery | DX: I83.11 Varicose veins of right lower extremity with inflammation (principal) | CPT/HCPCS: 99202 ==

== ENCOUNTER 2024-12-21 09:30 | Outpatient (AMB) | payer OTHER, SELFPAY ==
--- NOTE | 2024-12-21 09:48 | MHC.OFFVIS ---
Vital Signs 12/21/24 09:51 Height 5 ft 7 in Weight 498 lb 3.915 oz BMI 78.0 BP 120/62 Blood Pressure Location Lt brachial Position Sitting Pulse 78 Pulse Source Pulse Oximeter Pulse Oximetry (%) 98 Oxygen Delivery Method Room Air Intake Visit Reasons: Obstructive sleep apnea Intake Note: pt is here for follow up and received a new machine in February, and needs supplies sent to [facility] Product Marketing Programs Manager Required: No Search Engine Optimization Manager: Search Engine Optimization Manager offered & declined Allergies No Known Allergies Allergy (Verified 12/21/24 09:53) Medication List - Last Reconciled 12/21/24 by Liliam Ramirez MD cetirizine 10 mg PO DAILY 90 days chlorthalidone 25 mg PO DAILY cholecalciferol (vitamin D3) 50 mcg PO DAILY fluticasone propionate 50 mcg/actuation 1 spray intranasal DAILY PRN iron,carbonyl-vitamin C 65 mg iron- 125 mg (Vitron-C) 1 tab PO BEDTIME lisinopril 20 mg PO DAILY meloxicam 15 mg PO DAILY 30 days metoprolol succinate ER 50 mg PO DAILY pantoprazole 20 mg PO DAILY sennosides (Senna Lax) 17.2 mg (2 x 8.6 mg) PO BEDTIME PRN 90 days tirzepatide (weight loss) (Zepbound) 2.5 mg (0.5 mL) subcut QWEEK 4 weeks tizanidine 4 mg PO TID PRN 30 days Do you need a note to return to daycare/school/sports/work: No HPI HPI Obstructive sleep apnea: Details: MIMI COMES FOR FOLLOW-UP AFTER 4 MONTHS HE USES CPAP VERY REGULARLY AND HE CLAIMS THAT HE JUST CAN NOT SLEEP WITHOUT THE CPAP. HE HAS A NEW CPAP DEVICE SINCE MARCH OF THIS YEAR AND IS WORKING WELL. FAR WEIGHT IS CONCERNED UNFORTUNATELY HE HAS PUT ON A FEW MORE LB. HE WAS ON WEIGHT REDUCTION MEDICINE TIRZEPATIDE, FOR A WHILE AND LOST SIGNIFICANT AMOUNT OF WEIGHT, BUT THEN DUE TO NON COVERAGE BY THE INSURANCE HE HAS NOT BEEN ABLE TO GET THIS MEDICINE. AND HE HAS PUT ALL THE WEIGHT BACK. DUE TO HIS MORBID OBESITY AND CHRONIC BACK PAIN HE HAS IMPAIRED LOCOMOTION. AND CAN NOT EXERCISE TO BURN THE CALORIES. [facility] Medical History Restrictive lung disease Dyspnea on exertion Surgical History No pertinent past surgical history Family History Father Colon cancer Mother Heart attack, Onset Age: 48 Son Leukemia Social History Housing: House Alcohol intake: current Alcohol intake frequency: a few times a month Alcohol type: beer Patient Tobacco Use Status: Former Tobacco user Tobacco use type: Cigarette Years Smoked: 15 +/- e-Cigarette/Vaping Use: Never Used Second Hand Smoke Exposure: Yes service: No Current occupational status: unemployed Cognitive needs: No Hearing needs: No Vision needs: Yes Review of Systems Const All systems reviewed & are unremarkable except as noted in HPI and below Eyes Reports no additional complaints ENT Reports nasal congestion (Mild intermittent) Card Denies chest pain, Denies irregular heart rhythm and Reports dyspnea on exertion Resp Reports dyspnea on exertion and Reports wheezing (Occasion) GI Reports no additional complaints Reports no additional complaints Musc Reports back pain Skin/Breast Reports system reviewed and no additional complaints, except as documented Neuro Reports no additional complaints Psych Reports no additional complaints Aller/Immun Reports wheezing (Occasion) Physical Exam Vital Signs: Last Vital Signs Pulse 78 12/21/24 09:51 BP 120/62 12/21/24 09:51 Pulse Ox 98 12/21/24 09:51 Oxygen Delivery Method Room Air 12/21/24 09:51 BMI result Body Mass Index 78.0 He is grossly overweight, with a large round face, Const Other: WEIGHT IS DOWN BY 41 LB General: comfortable, no acute distress, alert and awake Orientation/consciousness: patient oriented x3 HEENT Head: Yes normal to inspection General nose exam: No nasal polyps present and No nasal discharge present Face and sinus: Yes sinuses nontender Mouth: oropharynx abnormals (Very narrow and crowded oropharynx, Mallampati class 4) Throat: Yes posterior oropharynx normal Eyes General: appearance normal, both eyes and all related structures Neck Neck: Yes normal visual inspection, Yes no lymphadenopathy, Yes trachea midline, Yes no JVD and Yes other (Grossly obese) Thyroid: Thyroid normal Chest Chest palpation & inspection: normal inspection of the chest, normal palpation of entire chest wall and no tenderness Resp Other: Percussion note is not perceptible, breath sounds are very distant, But no wheezes rhonchi or crepitations are heard . Cardio Palpation: normal PMI Rate: regular rate Rhythm: regular rhythm Heart sounds: no gallops and no murmurs Peripheral pulses: Peripheral pulses 2+ throughout GI Palpation (GI): Soft to palpation, nontender, No hepatosplenomegaly present, no masses and Other GI palpation findings present (Abdomen grossly obese and protuberant) Auscultation: normal bowel sounds Back/Spine/Pelvis Thoracic/Lumbar Spine: thoracic and lumbar spine normal to inspection and thoraco-lumbar ROM limited Skin General skin exam: no rashes or lesions noted Neuro General: patient oriented x3 and no focal motor deficits Cranial nerves: Yes CN's II-XII intact bilaterally Extrem General: Yes normal to inspection, Yes no clubbing, cyanosis or edema and Yes no calf tenderness Psych Appearance: grossly normal and well kempt Speech and movement: Normal speech and movement present Results Reviewed Results Reviewed: THE COMPLIANCE REPORT FOR THE LAST 30 NIGHTS IS REVIEWED . HE HAS USED 30/30 NIGHTS,. 100% AVERAGE USE IT PER NIGHT 8 HOURS 47 MINUTES. CPAP SETTING 16 CM. .NO SIGNIFICANT AIR LEAK RESIDUAL AHI 0.3 Assessment & Plan Assessment & Plan (1) Morbid obesity: Comment: CURRENT BMI 78.0. WEIGHT HAS INCREASED SINCE HE IS OFF TIRZEPATIDE INJECTIONS Code(s): E66.01 - Morbid (severe) obesity due to excess calories Category: Surgical Plan: DISCUSSED ABOUT THE NEED TO LOSE WEIGHT. HE SHOULD SEEK REFERRAL TO THE WEIGHT MANAGEMENT PROGRAM. HOPEFULLY HIS PCP WILL TRY TO GET HIM BACK ON ANTI OBESITY MEDICATION. HE HAS TO START LOSING WEIGHT (2) Restrictive lung disease: Comment: PER PREVIOUS PULMONARY FUNCTION TEST HE DOES HAVE SIGNIFICANT RESTRICTIVE LUNG DISEASE. THIS IS MAINLY BECAUSE OF HIS MORBID OBESITY, Code(s): J98.4 - Other disorders of lung Category: Medical Plan: WEIGHT REDUCTION AND DEEP BREATHING EXERCISES, STRESSED. (3) BRET on CPAP: Comment: HE IS KNOWN TO HAVE SEVERE BRET WHICH IS WELL TREATED WITH CPAP, NASAL PILLOWS, PRESSURE 16 CM. HE IS VERY COMPLIANT AND BENEFITING.. HAS A NEW CPAP MACHINE SINCE FEBRUARY OF THIS YEAR IT IS FUNCTIONING VERY WELL. Code(s): G47.33 - Obstructive sleep apnea (adult) (pediatric); Z99.89 - Dependence on other enabling machines and devices Category: Medical Plan: ADVISED TO CONTINUE USING THE CPAP EVERY NIGHT. Coding Level of Care Code Est Pt Level 3 (76371) Diagnoses Morbid obesity E66.01 Restrictive lung disease J98.4 BRET on CPAP G47.33; Z99.89
[2024-12-21 09:51] VITALS: BP 120/62; PULSE 78; O2SAT 98; BMI 78.0
--- OUTSIDE RECORDS SUMMARY | 2024-12-21 10:26 | XMS_ITS | Clinical Summary ---
Author Organization [facility] Address [address] [place] [address] Care Team Providers Care Carroting Machine Operator Name Role Phone Oneida Betancourt PA-C Primary Care Provider [phone] Allergies No known active allergies Medications methocarbamol (ROBAXIN) 750 MG tablet Take 1 tablet (750 mg total) by mouth 4 times daily (every 6 hours) as needed for muscle spasms. 20 tablet 5 Active lidocaine (LIDODERM) 5 % patch Place 1 patch on the skin daily. Apply patch and leave on for 12 hours then remove. Patch may remain on skin for 12 hours per day. 20 patch 5 Active methocarbamol (ROBAXIN) 750 MG tablet Take 1 tablet (750 mg total) by mouth 4 times daily (every 6 hours) as needed for muscle spasms. 20 tablet 5 12/12/19 25 Discontinued lidocaine (LIDODERM) 5 % patch Place 1 patch on the skin daily. Apply patch and leave on for 12 hours then remove. Patch may remain on skin for 12 hours per day. 20 patch 5 12/12/19 25 Discontinued Encounters Date Type Department Care Team Description 12/11/2024 1:14 AM EDT - 12/11/2024 6:[address] [facility] Emergency Department [address] [place] [address] Jose Howell III, DO Back pain (Primary Dx) Discharge Disposition: Home or Self Care 12/11/2024 Travel from Last 3 Months Social History Tobacco Use Types Packs/Day Years Used Date Smoking Tobacco: Never Assessed Sex and Gender Information Value Date Recorded Sex Assigned at Male 12/11/2024 1:41 AM EDT Legal Sex Male 8:14 PM EDT Gender Identity Male 12/11/2024 1:41 AM EDT Sexual Orientation Heterosexual (straight) 12/11 1:41 AM EDT Last Filed Vital Signs Vital Sign Reading Time Taken Comments Blood Pressure 123/56 12/11/2024 5:10 AM EDT Pulse 73 12/11/2024 5:10 AM EDT Temperature 36.3 C (97.3 F) 12/11/2024 5:10 AM EDT Respiratory Rate 16 12/11/2024 5:10 AM EDT Oxygen Saturation 100% 12/11/2024 5:10 AM EDT Inhaled Oxygen Concentration - - Weight 223 kg (491 lb) 12/11/2024 2:16 AM EDT Height 172.7 cm (5' 8 ) 12/11/2024 2:18 AM EDT Body Mass Index 74.66 12/11/2024 2:16 AM EDT Plan of Treatment Health Maintenance Due Date Last Done Comments Hepatitis C Virus Screening 1973 HIV Screening 1986 DTaP/Tdap/Td Vaccines (1 - Tdap) 1992 Hepatitis B Vaccines (1 of 3 - 19+ 3-dose series) 10/12 Colonoscopy 2018 Pneumococcal Vaccines 50+ (1 of 1 - PCV) 11/01/2023 RSV Vaccine 50 years and old er and Patients (1 - Risk 50-74 years 1-dose series) 11/01/2023 Zoster (Shingles) Vaccine (1 of 2) 11/01/2023 Influenza Vaccine 09/10/2024 COVID-19 Vaccine ( - season) 2024 Procedures Procedure Name Priority Date/Time Associated Diagnosis Comments CT THORACIC SPINE W/O CONTRAST STAT 12/11/2024 3:[address] LUMBAR SPINE W/O CONTRAST STAT 12/11/2024 3:43 AM EDT COMPREHENSIVE METABOLIC PANEL STAT 12/11/2024 1:41 AM EDT COMPLETE BLOOD COUNT, WITH DIFFERENTIAL STAT 12/11/2024 1:41 AM EDT POCT GLUCOSE, FINGERSTICK (CHARGE) Routine 12/11/2024 1:19 AM EDT from Last 3 Months Results * CT Thoracic spine w/o contrast (12/11/2024 3:43 AM EDT) Anatomical Region Laterality Modality T-spine Computed Tomogra phy 12/11/2024 3:37 AM EDT Impressions 12/11/2024 5:17 AM EDT 1. No acute findings. 2. Mild degenerative spondylosis throughout the thoracolumbar spine. I personally reviewed the images and the resident's preliminary report and AGREE with the report as it is now presented (RADPAL1). Narrative 12/11/2024 5:17 AM EDT EXAMINATION: CT THORACOLUMBAR SPINE WITHOUT CONTRAST CLINICAL INFORMATION: Atraumatic acute low back pain x 5 days with urinary incontinence, no numbness or weakness COMPARISON: None TECHNIQUE: Axial thin section CT slices were obtained from the thoracic inlet to the lower sacrum. Sagittal and coronal reconstructions were also produced and reviewed. DLP: 2061 mGy-cm FINDINGS: Vertebral body heights are maintained without compression deformity. Mild dextroscoliosis. Mild degenerative spondylosis throughout the lumbar spine with minimal loss of disc space, endplate change and mild osteophyte formation associated with mild facet osteoarthritic hypertrophic change. No paravertebral or prevertebral collections/swelling. No fractures throughout the partially imaged pelvis, ribs, or clavicles. Procedure Note Lisandro Martinez MD - 12/11/2024 EXAMINATION: CT THORACOLUMBAR SPINE WITHOUT CONTRAST CLINICAL INFORMATION: Atraumatic acute low back pain x 5 days with urinary incontinence, no numbness or weakness COMPARISON: None TECHNIQUE: Axial thin section CT slices were obtained from the thoracic inlet to the lower sacrum. Sagittal and coronal reconstructions were also produced and reviewed. DLP: 2061 mGy-cm FINDINGS: Vertebral body heights are maintained without compression deformity. Mild dextroscoliosis. Mild degenerative spondylosis throughout the lumbar spine with minimal loss of disc space, endplate change and mild osteophyte formation associated with mild facet osteoarthritic hypertrophic change. No paravertebral or prevertebral collections/swelling. No fractures throughout the partially imaged pelvis, ribs, or clavicles. IMPRESSION: 1. No acute findings. 2. Mild degenerative spondylosis throughout the thoracolumbar spine. I personally reviewed the images and the resident's preliminary report and AGREE with the report as it is now presented (RADPAL1). us Jose Howell III, DO IMG CT ORDERABLES Final R esult * CT Lumbar spine w/o contrast (12/11/2024 3:43 AM EDT) Anatomical Region Laterality Modality L-spine Computed Tomogra phy 12/11/2024 3:37 AM EDT Impressions 12/11/2024 5:17 AM EDT 1. No acute findings. 2. Mild degenerative spondylosis throughout the thoracolumbar spine. I personally reviewed the images and the resident's preliminary report and AGREE with the report as it is now presented (RADPAL1). Narrative 12/11/2024 5:17 AM EDT EXAMINATION: CT THORACOLUMBAR SPINE WITHOUT CONTRAST CLINICAL INFORMATION: Atraumatic acute low back pain x 5 days with urinary incontinence, no numbness or weakness COMPARISON: None TECHNIQUE: Axial thin section CT slices were obtained from the thoracic inlet to the lower sacrum. Sagittal and coronal reconstructions were also produced and reviewed. DLP: 2061 mGy-cm FINDINGS: Vertebral body heights are maintained without compression deformity. Mild dextroscoliosis. Mild degenerative spondylosis throughout the lumbar spine with minimal loss of disc space, endplate change and mild osteophyte formation associated with mild facet osteoarthritic hypertrophic change. No paravertebral or prevertebral collections/swelling. No fractures throughout the partially imaged pelvis, ribs, or clavicles. Procedure Note Lisandro Martinez MD - 12/11/2024 EXAMINATION: CT THORACOLUMBAR SPINE WITHOUT CONTRAST CLINICAL INFORMATION: Atraumatic acute low back pain x 5 days with urinary incontinence, no numbness or weakness COMPARISON: None TECHNIQUE: Axial thin section CT slices were obtained from the thoracic inlet to the lower sacrum. Sagittal and coronal reconstructions were also produced and reviewed. DLP: 2061 mGy-cm FINDINGS: Vertebral body heights are maintained without compression deformity. Mild dextroscoliosis. Mild degenerative spondylosis throughout the lumbar spine with minimal loss of disc space, endplate change and mild osteophyte formation associated with mild facet osteoarthritic hypertrophic change. No paravertebral or prevertebral collections/swelling. No fractures throughout the partially imaged pelvis, ribs, or clavicles. IMPRESSION: 1. No acute findings. 2. Mild degenerative spondylosis throughout the thoracolumbar spine. I personally reviewed the images and the resident's preliminary report and AGREE with the report as it is now presented (RADPAL1). us Jose Howell III, DO IMG CT ORDERABLES Final R esult * Complete Blood Count, with Differential (12/11/2024 1:41 AM EDT) White Blood Cell Count 9.5 4.0 - 11.0 Thou/uL 12/11/2024 2:07 AM [facility] Platelet Count 236 150 - 450 Thou/uL 12/11/2024 2:07 AM [facility] Hemoglobin 13.7 13.0 - 17.7 g/dL 12/11/2024 2:07 AM [facility] Hematocrit 41.2 39.0 - 54.0 % 12/11/2024 2:07 AM [facility] Red Blood Cell Count 4.61 4.50 - 6.20 Mil/uL 12/11/2024 2:07 AM [facility] MCV 89 80 - 100 fL 12/11/2024 2:07 AM [facility] MCH 29.7 27.0 - 31.0 pg 12/11/2024 2:07 AM [facility] MCHC 33.3 30.0 - 36.0 g/dL 12/11/2024 2:07 AM [facility] RDW 12.6 11.5 - 14.5 % 12/11/2024 2:07 AM [facility] MPV 9.8 7.5 - 12.5 fL 12/11/2024 2:07 AM [facility] Neutrophils Auto 55.8 % 12/12/19 2:07 AM [facility] Immature Granulocytes 0.4 % 12/11/2024 2:07 AM [facility] Lymphocytes Auto 33.9 % 12/12/19 2:[address] [facility] Monocytes Auto 7.2 % 12/11/2024 2:[address] [facility] Eosinophils Auto 2.2 % 12/12/19 2:[address] [facility] Basophils Auto 0.5 % 12/11/2024 2:[address] [facility] Abs Neutrophils Auto 5.32 2.00 - 7.50 Thou/uL 12/11/2024 2:[address] [facility] Abs Immature Granulocytes 0.04 0.00 - 0.10 Thou/uL 12/11/2024 2:[address] [facility] Abs Lymphocytes Auto 3.23 1.50 - 4.50 Thou/uL 12/11/2024 2:[address] [facility] Abs Monocytes Auto 0.69 0.20 - 1.50 Thou/uL 12/[facility] Eosinophils Auto 0.21 0.00 - 0.70 Thou/uL 12/11/2024 2:[address] [facility] Abs Basophils Auto 0.05 0.00 - 0.20 Thou/uL 12/11/2024 2:07 AM [facility] Blood Blood specimen / Unknown 12/11/2024 1:41 AM EDT 12/11/2024 2:02 AM EDT us Jose Howell III, DO LAB BLOOD ORDERABLES [place] [address], [place] [address] * (ABNORMAL) Comprehensive Metabolic Panel (12/11/2024 1:41 AM EDT) Glucose 100(H) 65 - 99 mg/dL 12/11/2024 2:[address] [facility] Comment:Fasting: <100 mg/dL, Non-Fasting: <200 mg/dL (ADA 2005) Blood Urea Nitrogen (BUN) 12 8 - 21 mg/dL 12/11/2024 2:[address] [facility] Creatinine 0.67 0.50 - 1.30 mg/dL 12/11/2024 2:27 AM [facility] eGFR >90 >59 12/11/2024 2:27 AM [facility] Comment:CKD-EPI (2020) in mL /min/1.73 sq meters. Sodium 134(L) 136 - 145 mmol/L 12/11/2024 2:27 AM [facility] Potassium 4.3 3.4 - 5.3 mmol/L 12/11/2024 2:27 AM [facility] Chloride 98 98 - 107 mmol/L 12/11/2024 2:27 AM [facility] CO2 24 22 - 33 mmol/L 12/11/2024 2:27 AM [facility] Calcium 9.2 8.7 - 10.5 mg/dL 12/11/2024 2:27 AM [facility] Alkaline Phosphatase 81 45 - 128 U/L 12/11/2024 2:27 AM [facility] Aspartate Aminotrans (AST) 22 10 - 55 U/L 12/11/2024 2:27 AM [facility] Alanine Aminotrans (ALT) 15 10 - 55 U/L 12/11/2024 2:27 AM [facility] Bilirubin, Total 0.4 0.2 - 1.0 mg/dL 12/11/2024 2:27 AM [facility] Protein, Total 7.3 6.3 - 8.3 g/dL 12/11/2024 2:27 AM [facility] Albumin 3.9 3.5 - 5.0 g/dL 12/11/2024 2:27 AM [facility] BUN/Creatinine Ratio 18 10.0 - 25.0 Ratio 12/11/2024 2:27 AM [facility] Globulin 3.4 1.5 - 3.9 g/dL 12/11/2024 2:27 AM [facility] Albumin/Globulin Ratio 1.1 1.0 - 3.0 Ratio 12/11/2024 2:27 AM [facility] Anion Gap 12 7 - 17 12/11/2024 2:27 AM [facility] Blood Blood specimen / Unknown 12/11/2024 1:41 AM EDT 12/11/2024 2:02 AM EDT us Jose Howell III, DO LAB BLOOD ORDERABLES Ashlee l Result [address] [address], [address] [address] * POCT Glucose, Fingerstick (12/11/2024 1:19 AM EDT) POC Glucose 98 65 - 99 mg/dL 12/11/2024 1:19 AM EDT Blood specimen / Unknown 12/11/2024 1:19 AM EDT 12/11/2024 1:20 AM EDT us Generic Provider POINT OF CARE TEST ORDERABLES F inal Result HOSPITAL LAB See Below from Last 3 Months Insurance MEDICAID OUT OF STATE [facility] Care Teams Carroting Machine Operator Relationship Specialty Start Date End Date Oneida Betancourt PA-C [address] [place] [address] PCP - General 12/11/24
--- OUTSIDE RECORDS SUMMARY | 2024-12-21 10:26 | XMS_ITS | Encounter Summary ---
Author Organization [employer] [facility] Address [address] [place] [address] Care Team Providers Care Supervisor Pile Driving Name Role Phone Unavailable Primary Care Provider [...]
--- OUTSIDE RECORDS SUMMARY | 2024-12-21 10:27 | XMS_ITS | Patient Health Record ---
Author Organization [facility] Address [address] [place] [address] Care Team Providers Care Medical Assistant Supervisor Name Role Phone Norris Keller Jr Reason For Referral No Information Plan Of Treatment No Information
--- OUTSIDE RECORDS SUMMARY | 2024-12-21 10:27 | XMS_ITS | Clinical Summary ---
Author Organization [employer] Address [address] [place] [address] Care Team Providers Care Setter Up Name Role Phone Unavailable Primary Care Provider [...]
== END 2024-12-21 10:03 | disposition home or self-care (01) ==
LOC: HO.HPS 09:31
PROVIDERS: PCP Physician Assistant; Visit Provider Internal Medicine
DX: E66.01 Morbid (severe) obesity due to excess calories (principal); J98.4 Other disorders of lung; G47.33 Obstructive sleep apnea (adult) (pediatric); Z99.89 Dependence on other enabling machines and devices
CPT/HCPCS: 99213

== ENCOUNTER → 2024-12-21 09:30 | Outpatient (BNVA) | payer OTHER, SELFPAY | PROVIDERS: PCP Physician Assistant; Visit Provider Internal Medicine | DX: M54.50 Low back pain, unspecified (principal); R35.0 Frequency of micturition; I10 Essential (primary) hypertension; E66.01 Morbid (severe) obesity due to excess calories; Z68.45 Body mass index [BMI] 70 or greater, adult; J98.4 Other disorders of lung; G47.33 Obstructive sleep apnea (adult) (pediatric); Z79.899 Other long term (current) drug therapy; Z99.89 Dependence on other enabling machines and devices | CPT/HCPCS: 99212 ==

== ENCOUNTER 2024-12-21 10:39 | Outpatient (AMB) | payer OTHER, SELFPAY ==
--- NOTE | 2024-12-21 11:27 | MHC.PC.OV ---
Vital Signs 12/21/24 11:28 Height 5 ft 7 in Weight 495 lb 6.059 oz BMI 77.6 BP 160/72 H Blood Pressure Location Lt brachial Position Sitting Pulse 72 Pulse Source Pulse Oximeter Temp 97.3 F Temp Source Temporal Artery Scan Pulse Oximetry (%) 96 Oxygen Delivery Method Room Air Intake Visit Reasons: discharge [facility] 12/11 Intake Note: Patient is here for hospital discharge follow up. Patient was discharged from [facility] on 12/11/24. Client Service Consultant Required: No Emd Teacher: Not Required per policy Accompanied by: Self / Same As Patient Allergies No Known Allergies Allergy (Verified 12/21/24 11:28) Medication List - Last Reconciled 12/21/24 by Tita Reyez MD cetirizine 10 mg PO DAILY 90 days chlorthalidone 25 mg PO DAILY cholecalciferol (vitamin D3) 50 mcg PO DAILY fluticasone propionate 50 mcg/actuation 1 spray intranasal DAILY PRN iron,carbonyl-vitamin C 65 mg iron- 125 mg (Vitron-C) 1 tab PO BEDTIME lisinopril 20 mg PO DAILY meloxicam 15 mg PO DAILY 30 days metoprolol succinate ER 50 mg PO DAILY pantoprazole 20 mg PO DAILY tizanidine 4 mg PO TID PRN 30 days Tobacco use date assessed: 12/21/24 Dental Screening Dental Screen Date: 05/06/24 HPI HPI Comments History of Present Illness Details The patient is a 49-year-old male with PMH of SUSAN, morbid obesity, HTN, GERD presenting for follow-up after a recent emergency department visit for back pain. He presented to the ED on December 11 with back pain so severe he was unable to walk, and was also experiencing urinary incontinence, which raised suspicion for cauda equina syndrome. He was transferred from [facility] to [facility] because the CT machine at the initial facility could not accommodate his size. CT scans of the lumbar and thoracic spine revealed degenerative spondylosis without acute findings. Neurosurgery reviewed the imaging and determined there were no emergent issues. Labs from the ED visit were normal. The patient reports he did not have a urine test performed during his ED visit. Currently, the patient is ambulatory but continues to experience back pain. His urinary symptoms persist, including urinary urgency, episodes of incontinence which he sometimes does not feel, and occasional dysuria. He also reports having the urge to urinate but being unable to void at times. His medical history is significant for hypertension and obstructive sleep apnea, for which he sees a guitar maker hand and uses a CPAP machine. His blood pressure at today's visit was 160/72 mmHg, though he reports a recent reading of 123/60 mmHg at his guitar maker hand's office. Current medications include cetirizine, chlorthalidone, vitamin D, iron, vitamin C, lisinopril, metoprolol, pantoprazole, and tizanidine as needed. He also takes meloxicam as needed for pain, which he finds effective but has run out of. [facility] Medical History Restrictive lung disease Dyspnea on exertion Surgical History (Reviewed 12/21/24 @ 11: by ANDREW Richardson) No pertinent past surgical history Family History (Reviewed 12/21/24 @ 11: by ANDREW Richardson) Father Colon cancer Mother Heart attack, Onset Age: 48 Son Leukemia Social History Housing: House Alcohol intake: current Alcohol intake frequency: a few times a month Alcohol type: beer Patient Tobacco Use Status: Former Tobacco user Tobacco use type: Cigarette Years Smoked: 15 +/- e-Cigarette/Vaping Use: Never Used Second Hand Smoke Exposure: Yes service: No Current occupational status: unemployed Cognitive needs: No Hearing needs: No Vision needs: Yes Questionnaire Thrive Questionnaire Date Thrive assessed: 09/09/24 I am a: Patient What is your living situation today?: I have a steady place to live Within the past 12 months, did the food you bought not last and you didn't have the money to get more?: I choose not to answer this question Within the past 12 months, did you worry whether your food would run out before you got money to buy more?: Sometimes True Do you have trouble paying for medicines?: Yes Do you have trouble getting transportation to medical appointments?: Yes Do you have trouble paying your heating and electricity bill?: Yes Do you have trouble taking care of your child, family member or friend?: Yes Do you have trouble with day-to-day activities such as bathing, preparing meals, shopping, managing finances, etc.?: Yes Are you currently unemployed and looking for a job?: Yes Are you interested in more education?: No Please select the resources that you would like help with: Daily support Currently or been in a relationship where the following occur: I choose not to answer THRIVE Score: 3 HEAVENLY-7 AMB Questionnaire HEAVENLY-7 Date HEAVENLY - 7 assessed: 09/09/24 Source: Developed by Drs. Christopher Vazquez, Majo Blanca, Compa No and colleagues, with an educational kassidy from [employer]. Review of Systems Const Details: As per HPI. Physical exam (Primary Care) Vital Signs: Last Vital Signs Temp 97.3 F 12/21/24 11:28 Pulse 72 12/21/24 11:28 BP 160/72 H 12/21/24 11:28 Pulse Ox 96 12/21/24 11:28 Oxygen Delivery Method Room Air 12/21/24 11:28 BMI result Body Mass Index 77.6 Tobacco/Smoking Status: Tobacco use Status Tobacco use date assessed 12/21/24 12/21/24 11:33 Patient Tobacco Use Status Former Tobacco user 12/21/24 11:33 Tobacco use type Cigarette 12/21/24 11:33 e-Cigarette/Vaping Use Never Used 12/21/24 11:33 Thrive Assessment: Date of Thrive Assessment Date Thrive assessed 09/09/24 12/21/24 11:33 Currently or been in a relationship where the following occur: I choose not to answer Const Other: Pertinent findings are in BOLD GENERAL APPEARANCE Morbid obseity, NAD, activity normal for age, well developed/ well nourished, no cyanosis, pallor, or diaphoresis. EYES lids/conjunctiva normal. EARS/NOSE/THROAT Mucous membranes moist, nares normal, lips/teeth normal uvula midline without oral pharyngeal erythema, exudate or swelling TMs normal bilaterally. No lymphangitis/lymphedema. HEAD/NECK normocephalic atraumatic, no facial trauma, neck is supple. RESPIRATORY respiratory effort normal, speaks in full sentences, no tripod position, no accessory muscle use. Lungs clear to auscultation without rhonchi, wheezes, rales CARDIAC Regular rate and rhythm, no edema. ABDOMINAL Soft, ND/NT. No evidence of fluid wave. No pulsatile masses on exam, rebound tenderness, Sweet sign or pain over Mcburney's point. MUSCLES/EXTREMITIES No abnormal range of motion, no swelling. Low back muscle spasm bilaterally. SKIN Warm, pink and dry. No rashes, dermatoses, petechiae or lesions. NEUROLOGICAL Speech is clear and appropriate. Normal level of consciousness. Gait and coordination are normal. 5/5 strength in all extremities. PSYCH Normal mood and affect. Judgement/competence is appropriate Coding Level of Care Code Est Pt Level 4 (84300) Diagnoses Acute bilateral low back pain without sciatica M54.50 Back pain location: low back pain Chronicity: acute Back pain laterality: bilateral Sciatica presence: without sciatica Urinary frequency R35.0 Elevated BP without diagnosis of hypertension R03.0 Time Spent (min) 30 Assessment & Plan Assessment & Plan (1) Back pain: Code(s): M54.9 - Dorsalgia, unspecified Category: Medical Qualifiers: Back pain location: low back pain Chronicity: acute Back pain laterality: bilateral Sciatica presence: without sciatica Qualified Code(s): M54.50 - Low back pain, unspecified Plan: - The back pain is thought to be most likely muscular in nature or related to severe muscle spasm, given the reassuring CT scan results which ruled out an acute process. - Meloxicam will be discontinued. - Ibuprofen 400 mg will be prescribed, to be taken up to three times per day for pain. - Adjunctive treatments such as massage therapy and heating pads are recommended. (2) Urinary frequency: Code(s): R35.0 - Frequency of micturition Category: Medical Plan: - The patient's symptoms of urinary incontinence, urgency, and dysuria are suspicious for a urinary tract infection, especially given the absence of spinal cord compression on imaging. - A urine test will be deferred, and empiric treatment will be initiated based on high clinical suspicion. - A prescription for nitrofurantoin 100 mg twice daily for 7 days will be sent. (3) Elevated BP without diagnosis of hypertension: Code(s): R03.0 - Elevated blood-pressure reading, without diagnosis of hypertension Category: Medical Plan: - The patient's blood pressure was elevated in the office at 160/72 mmHg, but he reported a recent normal reading of 123/68 mmHg elsewhere. - For now, will continue to monitor blood pressure without making changes to his current regimen, which includes lisinopril and metoprolol. Plan I explained to the patient that his recent CT scans of the spine were reassuring and did not show any emergent problems like spinal cord compression. I informed him that the urinary symptoms he is experiencing are likely due to a urinary tract infection, and we would start a course of antibiotics. We discussed that for his back pain, which is likely from a severe muscle spasm, I would be prescribing ibuprofen to be taken up to three times a day, and discontinuing the meloxicam. I also recommended non-pharmacologic treatments like heating pads and massage therapy. We will follow up in one week to assess his response to these treatments. Medications: New nitrofurantoin macrocrystal must administer with a meal/food 100 mg PO BID 14 caps 0RF ibuprofen 400 mg PO Q8H PRN 60 tabs 0RF pain Discontinued meloxicam Discontinued Reason: Doctor's Order 15 mg PO DAILY 30 days 30 tabs 1RF M17.0 - Bilateral primary osteoarthritis of knee
[2024-12-21 11:28] VITALS: BP 160/72; PULSE 72; TEMP 36.3; O2SAT 96; BMI 77.6
== END 2024-12-21 11:54 | disposition home or self-care (01) ==
LOC: HO.HMCH 10:40
PROVIDERS: PCP Physician Assistant; Visit Provider Internal Medicine
DX: M54.50 Low back pain, unspecified (principal); R35.0 Frequency of micturition; R03.0 Elevated blood-pressure reading, without diagnosis of hypertension

== ENCOUNTER 2024-12-28 10:29 | Outpatient (AMB) | payer OTHER, SELFPAY ==
--- NOTE | 2024-12-28 10:33 | MHC.PC.OV ---
Vital Signs 12/28/24 10:34 Height 5 ft 7 in Weight 507 lb 1.011 oz BMI 79.4 BP 164/84 H Blood Pressure Location Lt brachial Position Sitting Pulse 77 Pulse Source Pulse Oximeter Temp 97.3 F Temp Source Temporal Artery Scan Pulse Oximetry (%) 97 Oxygen Delivery Method Room Air Intake Visit Reasons: 1 week f/u Lugger Required: No Car Rental Clerk: Not Required per policy Accompanied by: Self / Same As Patient Allergies No Known Allergies Allergy (Verified 12/28/24 10:33) Tobacco use date assessed: 12/28/24 Dental Screening Dental Screen Date: 05/06/24 HPI HPI Comments History of Present Illness Details The patient is a 49-year-old male with PMH of SUSAN, morbid obesity, HTN, GERD presenting for follow-up after a recent emergency department visit for back pain. He presented to the ED on December 11 with back pain so severe he was unable to walk, and was also experiencing urinary incontinence, which raised suspicion for cauda equina syndrome. He was transferred from [facility] to [facility] because the CT machine at the initial facility could not accommodate his size. CT scans of the lumbar and thoracic spine revealed degenerative spondylosis without acute findings. Neurosurgery reviewed the imaging and determined there were no emergent issues. Labs from the ED visit were normal. The patient reports he did not have a urine test performed during his ED visit. He is presenting today for follow-up of back pain and urinary incontinence. He reports his back pain is improving, with the pain level decreasing from a 10/10 to a 7/10. At its worst, he was unable to walk. The pain is exacerbated by movement, such as getting out of bed, and is effectively managed with ibuprofen. Regarding his urinary urgency, the patient recently completed a course of antibiotics without any change in his symptoms. A previous workup included a CT scan from [place], during which cauda equina syndrome was considered but ultimately ruled out. [facility] Medical History Restrictive lung disease Dyspnea on exertion Surgical History No pertinent past surgical history Family History Father Colon cancer Mother Heart attack, Onset Age: 48 Son Leukemia Social History Housing: House Alcohol intake: current Alcohol intake frequency: a few times a month Alcohol type: beer Patient Tobacco Use Status: Former Tobacco user Tobacco use type: Cigarette Years Smoked: 15 +/- e-Cigarette/Vaping Use: Never Used Second Hand Smoke Exposure: Yes service: No Current occupational status: unemployed Cognitive needs: No Hearing needs: No Vision needs: Yes Questionnaire Thrive Questionnaire Date Thrive assessed: 09/09/24 I am a: Patient What is your living situation today?: I have a steady place to live Within the past 12 months, did the food you bought not last and you didn't have the money to get more?: I choose not to answer this question Within the past 12 months, did you worry whether your food would run out before you got money to buy more?: Sometimes True Do you have trouble paying for medicines?: Yes Do you have trouble getting transportation to medical appointments?: Yes Do you have trouble paying your heating and electricity bill?: Yes Do you have trouble taking care of your child, family member or friend?: Yes Do you have trouble with day-to-day activities such as bathing, preparing meals, shopping, managing finances, etc.?: Yes Are you currently unemployed and looking for a job?: Yes Are you interested in more education?: No Please select the resources that you would like help with: Daily support Currently or been in a relationship where the following occur: I choose not to answer THRIVE Score: 3 HEAVENLY-7 AMB Questionnaire HEAVENLY-7 Date HEAVENLY - 7 assessed: 09/09/24 Source: Developed by Drs. Christopher Vazquez, Majo Blanca, Compa No and colleagues, with an educational kassidy from [employer]. Review of Systems Const Details: As per HPI. Physical exam (Primary Care) Vital Signs: Last Vital Signs Temp 97.3 F 12/28/24 10:34 Pulse 77 12/28/24 10:34 BP 164/84 H 12/28/24 10:34 Pulse Ox 97 12/28/24 10:34 Oxygen Delivery Method Room Air 12/28/24 10:34 BMI result Body Mass Index 79.4 Tobacco/Smoking Status: Tobacco use Status Tobacco use date assessed 12/28/24 12/28/24 10:41 Patient Tobacco Use Status Former Tobacco user 12/28/24 10:41 Tobacco use type Cigarette 12/28/24 10:41 e-Cigarette/Vaping Use Never Used 12/28/24 10:41 Thrive Assessment: Date of Thrive Assessment Date Thrive assessed 09/09/24 12/28/24 10:41 Currently or been in a relationship where the following occur: I choose not to answer Const Other: Pertinent findings are in BOLD GENERAL APPEARANCE NAD, activity normal for age, well developed/ well nourished, no cyanosis, pallor, or diaphoresis. EYES lids/conjunctiva normal. EARS/NOSE/THROAT Mucous membranes moist, nares normal, lips/teeth normal uvula midline without oral pharyngeal erythema, exudate or swelling TMs normal bilaterally. No lymphangitis/lymphedema. HEAD/NECK normocephalic atraumatic, no facial trauma, neck is supple. RESPIRATORY respiratory effort normal, speaks in full sentences, no tripod position, no accessory muscle use. Lungs clear to auscultation without rhonchi, wheezes, rales CARDIAC Regular rate and rhythm, no edema. ABDOMINAL Soft, ND/NT. No evidence of fluid wave. No pulsatile masses on exam, rebound tenderness, Sweet sign or pain over Mcburney's point. MUSCLES/EXTREMITIES No abnormal range of motion, no swelling. Low back tenderness. SKIN Warm, pink and dry. No rashes, dermatoses, petechiae or lesions. NEUROLOGICAL Speech is clear and appropriate. Normal level of consciousness. Gait and coordination are normal. 5/5 strength in all extremities. PSYCH Normal mood and affect. Judgement/competence is appropriate Coding Level of Care Code Est Pt Level 3 (93781) Diagnoses Urinary incontinence, unspecified type R32 Urinary Incontinence type: unspecified incontinence Acute bilateral low back pain without sciatica M54.50 Back pain location: low back pain Chronicity: acute Back pain laterality: bilateral Sciatica presence: without sciatica Time Spent (min) 20 Assessment & Plan Assessment & Plan (1) Urinary incontinence: Code(s): R32 - Unspecified urinary incontinence Category: Medical Qualifiers: Urinary Incontinence type: unspecified incontinence Qualified Code(s): R32 - Unspecified urinary incontinence Plan: - The patient's symptoms have not resolved after a course of antibiotics. - A referral will be placed for the patient to see a urologist for further evaluation. - The patient was instructed to obtain and bring his prior CT scan from [place] to the urology appointment to provide context on the previous workup, which had ruled out cauda equina syndrome. (2) Back pain: Code(s): M54.9 - Dorsalgia, unspecified Category: Medical Qualifiers: Back pain location: low back pain Chronicity: acute Back pain laterality: bilateral Sciatica presence: without sciatica Qualified Code(s): M54.50 - Low back pain, unspecified Plan: - The patient's back pain is improving, decreasing from 10/10 to 7/10 severity, and is managed with ibuprofen. - The patient will follow up with his primary care physician, Christoph Wilkinson, at the end of January to re-evaluate if pain persists. Plan I discussed with the patient that his back pain is showing improvement. He should follow up with his primary care physician, Christoph Wilkinson, at the end of January if the pain does not resolve. Due to the lack of improvement in his other symptoms despite antibiotic treatment, I am referring him to a urologist. I advised him to bring his previous CT scan images to the urology appointment. Orders: Referrals Urology Referral R32 - Unspecified urinary incontinence
[2024-12-28 10:34] VITALS: BP 164/84; PULSE 77; TEMP 36.3; O2SAT 97; BMI 79.4
== END 2024-12-28 10:55 | disposition home or self-care (01) ==
LOC: HO.HMCH 10:30
PROVIDERS: PCP Physician Assistant; Visit Provider Internal Medicine
DX: R32 Unspecified urinary incontinence (principal); M54.50 Low back pain, unspecified

== ENCOUNTER → 2024-12-28 10:29 | Outpatient (BNVA) | payer OTHER, SELFPAY | PROVIDERS: PCP Physician Assistant; Visit Provider Internal Medicine | DX: M54.59 Other low back pain (principal); R32 Unspecified urinary incontinence | CPT/HCPCS: 99212 ==

== ENCOUNTER 2025-01-19 08:07 | Outpatient (REF) | payer OTHER, SELFPAY ==
--- NOTE | ~2025-01-19 | US_ITS ---
EXAMINATION: US LOWER EXTREMITY VENOUS (REFLUX EXAM), BILATERAL CLINICAL INFORMATION: Varicose veins of the right lower extremity with inflammation COMPARISON: None. TECHNIQUE: Color flow triplex imaging and compression Doppler was performed to evaluate both the deep and the superficial systems bilaterally. To evaluate the superficial system, the examination was performed in the upright position. Color-flow Doppler ultrasound and compression ultrasound were utilized. In addition, maneuvers were utilized to demonstrate reflux. FINDINGS: Study is moderately limited by body habitus. 1. DEEP VENOUS ULTRASOUND OF THE RIGHT LOWER EXTREMITY: Common Femoral Vein: Compressible, normal respiratory variation and augmented flow. Femoral Vein: Compressible, normal color flow and augmentation. Popliteal Vein: Compressible, normal augmentation. Deep Reflux: There is no evidence of reflux in the deep system in either the common femoral vein, superficial femoral or the popliteal vein. 2. SUPERFICIAL ULTRASOUND WITH DOPPLER OF RIGHT LOWER EXTREMITY: GREAT SAPHENOUS VEIN: Saphenofemoral Junction: 1.5 cm; Reflux: 0 ms Proximal Thigh: 0.8 cm; Reflux: 0 ms Mid Thigh: 0.7 cm; Reflux: 0 ms Distal Thigh: 0.5 cm; Reflux: 0 ms At Knee: 0.7 cm; Reflux: 0 ms Below Knee/Proximal Calf: 0.3 cm; Reflux: 0 ms Mid Calf: 0.3 cm; Reflux: 0 ms Ankle/Distal Calf: 0.3 cm; Reflux: 0 ms Medial accessory GREAT SAPHENOUS VEIN: Saphenofemoral Junction: 0.6 cm; Reflux: 0 ms SMALL SAPHENOUS VEIN: Drainage: Not clearly demonstrated due to body habitus Saphenopopliteal Junction: 0.4 cm; Reflux: 0 ms Mid calf: 0.4 cm; Reflux: 0 ms Distal: 0.3 cm; Reflux: 0 ms VEIN OF GIACOMINI: Size: NA cm Reflux: NA ms PERFORATORS: Location: Small saphenous vein, proximal calf Size: 0.3 cm Reflux: 0 ms Location: Greater saphenous vein, mid calf Size: 0.3 cm Reflux: 0 ms VARICOSITIES > 3mm: Location: Great saphenous vein, mid thigh Size: 0.5 cm Reflux: 0 ms Location: Great saphenous vein, mid thigh Size: 0.4 cm Reflux: 0 ms Location: Great saphenous vein, proximal calf Size: 0.7 cm Reflux: 0 ms Location: Great saphenous vein, mid calf Size: 0.5 cm Reflux: 0 ms US/US venous duplex LE RT IMPRESSION: Study was limited due to body habitus. Right: No venous reflux is demonstrated. Electronically signed by: Gio Goetz MD 01/19/2025 09:26 AM [facility]
== END 2025-01-19 08:08 | disposition home or self-care (01) ==
LOC: HO.US 08:07
PROVIDERS: PCP Physician Assistant; Visit Provider Surgery Vascular Surgery
DX: I83.11 Varicose veins of right lower extremity with inflammation (principal)
CPT/HCPCS: 93971

== ENCOUNTER → 2025-01-19 08:09 | Outpatient (BNV) | payer OTHER, SELFPAY | PROVIDERS: PCP Physician Assistant; Visit Provider Radiology Diagnostic Radiology | DX: I83.11 Varicose veins of right lower extremity with inflammation (principal) | CPT/HCPCS: 93971 ==

== ENCOUNTER 2025-02-09 08:29 | Outpatient (AMB) | payer OTHER, SELFPAY ==
--- OUTSIDE RECORDS SUMMARY | 2025-02-09 08:33 | XMS_ITS ---
Author Name [facility] Organization Unknown Results Test Name/Text Value Interpretation Date Range Source Albumin/Glob SerPl 1.1 Ratio 12/11/2024 1 - 3 [facility] Chloride SerPl-sCnc 98.0 mmol/L 12/11/2024 98 - 10 7 [facility] Potassium SerPl-sCnc 4.3 mmol/L 12/11/2024 3.4 - 5 .3 [facility] BUN/Creat SerPl 18.0 Ratio 12/11/2024 10 - 25 HH CCT Prot SerPl-mCnc 7.3 g/dL 12/11/2024 6.3 - 8.[address] BUN SerPl-mCnc 12.0 mg/dL 12/11/2024 8 - [address] Globulin Ser Calc-mCnc 3.4 g/dL 12/11/2024 1.5 - 3.9 [facility] Glucose SerPl-mCnc 100.0 mg/dL Above high normal 12/11/2024 65 - 99 [facility] Creat SerPl-mCnc 0.67 mg/dL 12/11/2024 0.5 - 1.3 H [facility]CT Calcium SerPl-mCnc 9.2 mg/dL 12/11/2024 8.7 - 10.5 [facility] ALT SerPl-cCnc 15.0 U/L 12/11/2024 10 - 55 [facility] T Sodium SerPl-sCnc 134.0 mmol/L Below low normal 12/11/2024 1 36 - 145 [facility] CO2 SerPl-sCnc 24.0 mmol/L 12/11/2024 22 - 33 HH CCT GFR/BSA.pred SerPlBld RYL-MEZ-YjORly >90.0 12/11/2024 59 - [facility] ALP SerPl-cCnc 81.0 U/L 12/11/2024 45 - 128 [facility] T Anion Gap Bld-sCnc 12.0 12/11/2024 7 - 17 [facility] AST SerPl-cCnc 22.0 U/L 12/11/2024 10 - 55 [facility] T Albumin SerPl-mCnc 3.9 g/dL 12/11/2024 3.5 - 5 [facility] Bilirub SerPl-mCnc 0.4 mg/dL 12/11/2024 0.2 - 1 [facility] Hct VFr Bld Auto 41.2 % 12/11/2024 39 - 54 HH CCT MCHC RBC Auto-mCnc 33.3 g/dL 12/11/2024 30 - 36 [facility] Lymphocytes/leuk NFr Bld Auto 33.9 % 12/11/2024 [facility] Lymphocytes num Bld Auto 3.23 Thou/uL 12/11/2024 1.5 - 4.5 [facility] MCV RBC Auto 89.0 fL 12/11/2024 80 - 100 [facility] RDW RBC Auto-Rto 12.6 % 12/11/2024 11.5 - 14.5 [facility] PMV Bld Auto 9.8 fL 12/11/2024 7.5 - 12.5 [facility] Imm Granulocytes num Bld Auto 0.04 Thou/uL 12/11/2024 0 - 0.1 [facility] Neutrophils num Bld Auto 5.32 Thou/uL 12/11/2024 2 - 7.5 [facility] RBC num Bld Auto 4.61 Mil/uL 12/11/2024 4.5 - 6.2 [facility] Platelet num Bld Auto 236.0 Thou/uL 12/11/2024 150 - 450 [facility] Imm Granulocytes/leuk NFr Bld Auto 0.4 % 12/11/2024 [facility] Eosinophil/leuk NFr Bld Auto 2.2 % 12/11/2024 [facility] Hgb Bld-mCnc 13.7 g/dL 12/11/2024 13 - 17.7 [facility] Eosinophil num Bld Auto 0.21 Thou/uL 12/11/2024 0 - 0.7 [facility] Basophils num Bld Auto 0.05 Thou/uL 12/11/2024 0 - 0.2 [facility] Neutrophils/leuk NFr Bld Auto 55.8 % 12/11/2024 [facility] WBC num Bld Auto 9.5 Thou/uL 12/11/2024 4 - 11 [facility] Monocytes/leuk NFr Bld Auto 7.2 % 12/11/2024 [facility] RBC Qn Auto 29.7 pg 12/11/2024 27 - [address] [facility] [address] Basophils/leuk NFr Bld Auto 0.5 % 12/11/2024 [facility] Monocytes num Bld Auto 0.69 Thou/uL 12/11/2024 0.2 - 1.5 [facility] POC Glucose 98.0 mg/dL 12/11/2024 65 - 99 [facility] Encounters Encounter Type Encounter Reason Primary Diagnosis Location Date Emergency Dorsalgia, unspecified Dorsalgia, unspecified [facility] 12/11/2024 Care Team Organization Name Specialty Phone Email Start Date End Da shantelle [facility] TANYA MARCUS Primary Care 12/11/2024 [employer] [facility] 12/11/2024 01/09/2025 [employer] 12/11/2024
--- OUTSIDE RECORDS SUMMARY | 2025-02-09 08:33 | XMS_ITS | Patient Health Record ---
Author Organization [facility] Address [address] [place] [address] Care Team Providers Care Milk Route Supervisor Name Role Phone Norris Keller Jr [phone] Reason For Referral No Information Plan Of Treatment No Information
--- OUTSIDE RECORDS SUMMARY | 2025-02-09 08:33 | XMS_ITS | Clinical Summary ---
Author Organization [facility] Address [address] [place] [address] Care Team Providers Care Fiber Optics Engineer Name Role Phone Oneida Betancourt PA-C Primary Care Provider [phone] Allergies No known active allergies Medications methocarbamol (ROBAXIN) 750 MG tablet Take 1 tablet (750 mg total) by mouth 4 times daily (every 6 hours) as needed for muscle spasms. 20 tablet 12/11/2024 Active lidocaine (LIDODERM) 5 % patch Place 1 patch on the skin daily. Apply patch and leave on for 12 hours then remove. Patch may remain on skin for 12 hours per day. 20 patch 12/11/2024 Active Encounters Date Type Department Care Team Description 12/11/2024 1:14 AM EDT - 12/11/2024 6:10 AM EDT Emergency [facility] Emergency Department [address] [place] [address] Jose Howell III, DO Back pain (Primary Dx) Discharge Disposition: Home or Self Care from Last 3 Months Social History Tobacco [...] 2) 11/01/2023 Influenza Vaccine 09/10/2024 COVID-19 Vaccine (1 - season) 2024 Procedures Procedure Name Priority [...] reconstructions were also produced and reviewed. DLP: 2060 mGy-cm FINDINGS: Vertebral body heights are maintained [...] it is now presented (RADPAL1). us Jose Moore Ashlis III, DO IMG CT ORDERABLES Final R esult * Complete Blood Count, with Differential (12/11/2024 1:41 AM EDT) White Blood Cell Count 9.5 4.0 - 11.0 Thou/uL 12/11/2024 2:07 AM [facility] Platelet Count 236 150 - 450 Thou/uL 12/11/2024 2:07 AM [facility] Hemoglobin 13.7 13.0 - 17.7 g/dL 12/11/2024 2:07 AM [facility] Hematocrit 41.2 39.0 - 54.0 % 12/11/2024 2:07 AM [facility] Red Blood Cell Count 4.61 4.50 - 6.20 Mil/uL 12/11/2024 2:07 AM [facility] MCV 89 80 - 100 fL 12/11/2024 2:07 AM [facility] MCH 29.7 27.0 - 31.0 pg 12/11/2024 2:07 AM [facility] MCHC 33.3 30.0 - 36.0 g/dL 12/11/2024 2:07 AM [facility] RDW 12.6 11.5 - 14.5 % 12/11/2024 2:07 AM [facility] MPV 9.8 7.5 - 12.5 fL 12/11/2024 2:07 AM [facility] Neutrophils Auto 55.8 % 12/12/19 2:07 AM [facility] Immature Granulocytes 0.4 % 12/11/2024 2:07 AM [facility] Lymphocytes Auto 33.9 % 12/12/19 2:07 AM [facility] Monocytes Auto 7.2 % 12/11/2024 2:07 AM [facility] Eosinophils Auto 2.2 % 12/12/19 2:07 AM [facility] Basophils Auto 0.5 % 12/11/2024 2:07 AM [facility] Abs Neutrophils Auto 5.32 2.00 - 7.50 Thou/uL 12/11/2024 2:07 AM [facility] Abs Immature Granulocytes 0.04 0.00 - 0.10 Thou/uL 12/11/2024 2:[address] [facility] Abs Lymphocytes Auto 3.23 1.50 - 4.50 Thou/uL 12/11/2024 2:[address] [facility] Abs Monocytes Auto 0.69 0.20 - 1.50 Thou/uL 12/11/2024 2:[address] [facility] Abs Eosinophils Auto 0.21 0.00 - 0.70 Thou/uL 12/11/2024 2:[address] [facility] Abs Basophils Auto 0.05 0.00 - 0.20 Thou/uL 12/11/2024 2:[address] [facility] Blood Blood specimen / Unknown 12/11/2024 1:41 AM EDT 12/11/2024 2:02 AM EDT Jose Howell III, DO LAB BLOOD ORDERABLES [place] [address], [place] [address] * (ABNORMAL) Comprehensive Metabolic Panel (12/11/2024 1:41 AM EDT) Glucose 100(H) 65 - 99 mg/dL 12/11/2024 2:[address] [facility] Comment:Fasting: <100 mg/dL, Non-Fasting: <200 mg/dL (ADA 2005) Blood Urea Nitrogen (BUN) 12 8 - 21 mg/dL [facility] Creatinine 0.67 0.50 - 1.30 mg/dL 12/11/2024 2:27 AM [facility] eGFR >90 >59 12/11/2024 2:27 AM [facility] Comment:CKD-EPI (2020) in mL /min/1.73 sq meters. Sodium 134(L) 136 - 145 mmol/L 12/11/2024 2:[address] [facility] Potassium 4.3 3.4 - 5.3 mmol/L 12/11/2024 2:27 AM [facility] Chloride 98 98 - 107 mmol/L 12/11/2024 2:27 AM [facility] CO2 24 22 - 33 mmol/L 12/11/2024 2:27 AM [facility] Calcium 9.2 8.7 - 10.5 mg/dL 12/11/2024 2:27 AM [facility] Alkaline Phosphatase 81 45 - 128 U/L 12/11/2024 2:27 AM [facility] Aspartate Aminotrans (AST) 22 10 - 55 U/L 12/11/2024 2:27 AM [facility] Alanine Aminotrans (ALT) 15 10 - 55 U/L 12/11/2024 2:27 AM [facility] Bilirubin, Total 0.4 0.2 - 1.0 mg/dL 12/11/2024 2:27 AM [facility] Protein, Total 7.3 6.3 - 8.3 g/dL 12/11/2024 2:27 AM [facility] Albumin 3.9 3.5 - 5.0 g/dL 12/11/2024 2:27 AM [facility] BUN/Creatinine Ratio 18 10.0 - 25.0 Ratio 12/11/2024 2:27 AM [facility] Globulin 3.4 1.5 - 3.9 g/dL 12/11/2024 2:27 AM [facility] Albumin/Globulin Ratio 1.1 1.0 - 3.0 Ratio 12/11/2024 2:27 AM [facility] Anion Gap 12 7 - 17 12/11/2024 2:27 AM [facility] Blood Blood specimen / Unknown 12/11/2024 1:41 AM EDT 12/11/2024 2:02 AM EDT us Jose Howell III, DO LAB BLOOD ORDERABLES [place] [address], [place] [address] * POCT Glucose, Fingerstick (12/11/2024 1:19 AM EDT) POC Glucose 98 65 - 99 mg/dL 12/11/2024 1:19 AM EDT Blood specimen / Unknown 12/11/2024 1:19 AM EDT 12/11/2024 1:20 AM EDT us Generic Provider POINT OF CARE TEST ORDERABLES F inal Result [facility] See Below from Last 3 Months Insurance [place] OUT OF [place] [facility] [place] Teams Fiber Optics Engineer Relationship Specialty Start Date End Date Oneida Betancourt PA-C [address] [place] [address] [place] [address] PCP - General 12/11/24
--- OUTSIDE RECORDS SUMMARY | 2025-02-09 08:33 | XMS_ITS | Encounter Summary ---
Author Organization [employer] [facility] Address [address] [place] [address] Care Team Providers Care Director Of Curriculum Name Role Phone Unavailable Primary Care Provider [...]
--- OUTSIDE RECORDS SUMMARY | 2025-02-09 08:33 | XMS_ITS | Clinical Summary ---
Author Organization [employer] Address [address] [place] [address] Care Team Providers Care Automotive Teacher Name Role Phone Unavailable Primary Care Provider [...]
[2025-02-09 08:43] VITALS: BP 156/82; PULSE 67; TEMP 36.1; O2SAT 96; BMI 79.8
--- NOTE | 2025-02-09 08:43 | MHC.PC.OV ---
Vital Signs 02/09/25 08:43 Height 5 ft 7 in Weight 509 lb 4.285 oz BMI 79.8 BP 156/82 H Blood Pressure Location Lt brachial Position Sitting Pulse 67 Pulse Source Pulse Oximeter Temp 97.0 F Temp Source Temporal Artery Scan Pulse Oximetry (%) 96 Oxygen Delivery Method Room Air Intake Visit Reasons: Annual Exam- repeat A1C Allergies No Known Allergies Allergy (Verified 02/09/25 09:01) Medication List - Last Reconciled 02/09/25 by Delmer Wilkinson PA-C cetirizine 10 mg PO DAILY 90 days chlorthalidone 25 mg PO DAILY cholecalciferol (vitamin D3) 50 mcg PO DAILY fluticasone propionate 50 mcg/actuation 1 spray intranasal DAILY PRN ibuprofen 400 mg PO Q8H PRN iron,carbonyl-vitamin C 65 mg iron- 125 mg (Vitron-C) 1 tab PO BEDTIME lisinopril 20 mg PO DAILY metoprolol succinate ER 50 mg PO DAILY pantoprazole 20 mg PO DAILY 90 days tizanidine 4 mg PO TID PRN 30 days Tobacco use date assessed: 02/09/25 Dental Screening Dental Screen Date: 02/09/25 Did you have a dental visit in the last 12 months?: Yes Did you have a dental problem in the last 6 months where you did not have access to dental care?: No Was dental information given to patient?: Patient has dentist HPI Annual Exam- repeat A1C HPI Details Wally is a 49 year old male here today for a routine annual physical. Patient has a pmhx significant for Morbid obesity, Sleep apnea, chronic knee/ lumbar spine pain, hypertension, major depressive disorder, Concern--> The patient experiences discomfort due to a large mass on his side, suspected to be lymphedema, which causes pain and rashes during physical activity. He has attempted to manage this with compression garments and powder, but the issue persists. ., . Morbid obesity and obstructive sleep apnea: Patient's BMI is at 74, he is 474 lb. He was previously on GLP 1 and was were able to lose 30-50 lb and did not report any side effects from GL put 1 therapy. Did get some better glycemic control when he was on GLP 1. PLAN: Will try to restart GLP 1 (Zepbound) ? medical necessity for GLP 1 ? ? ? Morbid obesity:? Has started Wegovy previously and has lost significant amount of weight. He was able to get his BMI down to 60 while on Wegovy. He did report a low weight of 410 lb at the time. Unfortunately insurance has not been covering Wegovy over last 2 months . Unfortunately since being off of GLP 1 therapy has gained as her plus amount of weight back. Patient's current BMI is 74 and now 474 lb When taking Wegovy he reported he has been a bit more physically active doing more walks in his neighborhood. His fasting blood sugar has improved as well and also has chronic anemia has stabilized. . ? BRET: Using CPAP on nightly basis? , is followed by Dr. Zhou.? Headaches since resolved since using CPAP nightly. ? .. ? HTN:? Blood pressure today in office acceptable. Was recently placed back on diuretic and reports better control his blood pressure though does note urinary frequency.. He continues on metoprolol and lisinopril with good effect on his blood pressureas well..? He does monitor his blood pressures at home and does report normal readings.?Denies any vision issues, chest discomforts or headaches Vaccines: Up-to-date with COVID vaccine, flu vaccine, tetanus vaccine, up to date with PCV Colon cancer screening: Done at [facility] in December of 2022, normal repeat 10 years [facility] Medical History Restrictive lung disease Dyspnea on exertion Surgical History No pertinent past surgical history Family History Father Colon cancer Mother Heart attack, Onset Age: 48 Son Leukemia Social History Housing: House Alcohol intake: current Alcohol intake frequency: a few times a month Alcohol type: beer Patient Tobacco Use Status: Former Tobacco user Tobacco use type: Cigarette Years Smoked: 15 +/- e-Cigarette/Vaping Use: Never Used Second Hand Smoke Exposure: Yes service: No Current occupational status: unemployed Cognitive needs: No Hearing needs: No Vision needs: Yes Questionnaire PHQ-9 Over the last 2 weeks, how often have you been bothered by any of the following problems? 1. Little interest or pleasure in doing things: several days 2. Feeling down, depressed, or hopeless: not at all 3. Trouble falling or staying asleep, or sleeping too much: not at all 4. Feeling tired or having little energy: not at all 5. Poor appetite or overeating: not at all 6. Feeling bad about yourself - or that you are a failure or have let yourself or your family down: not at all 7. Trouble concentrating on things, such as reading the newspaper or watching television: not at all 8. Moving or speaking so slowly that other people could have noticed. Or the opposite - being so fidgety or restless that you have been moving around a lot more than usual: not at all 9. Thoughts that you would be better off or of hurting yourself in some way: not at all Total score: 1 Depression Screening Interpretation: Positive Depression Screening Done: Yes 43984 - PHQ-9 Billing: Yes Source: Developed by Drs. Christopher Vazquez, Majo Blanca, Compa No and colleagues, with an educational kassidy from [email or web address]. Thrive Questionnaire Date Thrive assessed: 09/09/24 I am a: Patient What is your living situation today?: I have a steady place to live Within the past 12 months, did the food you bought not last and you didn't have the money to get more?: I choose not to answer this question Within the past 12 months, did you worry whether your food would run out before you got money to buy more?: Sometimes True Do you have trouble paying for medicines?: Yes Do you have trouble getting transportation to medical appointments?: Yes Do you have trouble paying your heating and electricity bill?: Yes Do you have trouble taking care of your child, family member or friend?: Yes Do you have trouble with day-to-day activities such as bathing, preparing meals, shopping, managing finances, etc.?: Yes Are you currently unemployed and looking for a job?: Yes Are you interested in more education?: No Currently or been in a relationship where the following occur: I choose not to answer THRIVE Score: 3 AUDIT C Alcohol Use Questionnaire (AUDIT-C) 1. How often do you have a drink containing alcohol?: Never 3. How often do you have six or more drinks on one occasion?: Never Total Score: 0 HEAVENLY-7 AMB Questionnaire HEAVENLY-7 Date HEAVENLY - 7 assessed: 09/09/24 Feeling nervous, anxious, or on edge: 0 = Not at all Not being able to stop or control worryin = Not at all Worrying too much about different things: 0 = Not at all Trouble relaxin = Not at all Being so restless that it is hard to sit still: 0 = Not at all Becoming easily annoyed or irritable: 0 = Not at all Feeling afraid as if something awful might happen: 0 = Not at all Total HEAVENLY-7 score (0-4 normal; 5-9 mild; 10-14 moderate; 15-21 severe): 0 Source: Developed by Drs. Christopher Vazquez, Majo Blanca, Compa No and colleagues, with an educational kassidy from [email or web address]. HEAVENLY-7 Assessment Billing HEAVENLY-7 Assessment Tool: HEAVENLY-7 Assessment 96968 Physical exam (Primary Care) Vital Signs: Last Vital Signs Temp 97.0 F 02/09/25 08:43 Pulse 67 02/09/25 08:43 BP 156/82 H 02/09/25 08:43 Pulse Ox 96 02/09/25 08:43 Oxygen Delivery Method Room Air 02/09/25 08:43 BMI result Body Mass Index 79.8 Tobacco/Smoking Status: Tobacco use Status Tobacco use date assessed 02/09/25 02/09/25 08:46 Patient Tobacco Use Status Former Tobacco user 02/09/25 08:46 Tobacco use type Cigarette 02/09/25 08:46 e-Cigarette/Vaping Use Never Used 02/09/25 08:46 PHQ-9: PHQ-9 Score PHQ-9: Total score 1 02/09/25 09:17 Depression Screening Interpretation: Positive Thrive Assessment: Date of Thrive Assessment Date Thrive assessed 09/09/24 02/09/25 08:46 Currently or been in a relationship where the following occur: I choose not to answer Office Procedures Flu Questionnaire Does the patient have a severe egg allergy?: No Does the patient have severe life threatening allergies?: No Does the patient have a fever or illness today?: No Has the patient ever had Guillain-Edna Syndrome?: No Has the patient ever had any past reaction to a flu shot?: No Immunizations Fluarix [id number] (PF) 45 mcg (15 mcg x 3)/0.5 mL IM syringe Performing Provider: Delmer Wilkinson PA-C [facility] [facility] Administered by: Vani Parr CMA on 02/09/25 09:29 Dose Route Admin Location Dispensed Lot Number Expiration Date ND Vendor Management Associate 0.5 mL IM Left Deltoid 0.5 mL [id number] 08/09/25 [id number] [employer] VIS Given Date VIS Provided VIS Publication Date 02/09/25 Single Vaccine 24 Eligibility Eligibility Date Funding Source Not [facility] Eligible 02/09/25 Private Coding Diagnoses Class 3 obesity E66.813 BRET on CPAP G47.33; Z99.89 Essential hypertension I10 Hypertension type: essential hypertension Additional Codes HEAVENLY-7 Assessment Billing - HEAVENLY-7 Assessment Tool: HEAVENLY-7 Assessment 86406 ([id number]) PHQ-9 - 60618 - PHQ-9 Billing: Yes ([id number]) Assessment & Plan Assessment & Plan (1) Class 3 obesity: Code(s): E66.813 - Obesity, class 3 Category: Medical Plan: The patient is considering Zepbound injections to aid in weight lossAND CONTROL OF HIS OBSTRUCTIVE SLEEP APNEA, and a gradual increase in dosage was discussed. Aquatic exercise was recommended to reduce physical discomfort and promote weight loss. (2) BRET on CPAP: Comment: HE IS KNOWN TO HAVE SEVERE BRET WHICH IS WELL TREATED WITH CPAP, NASAL PILLOWS, PRESSURE 16 CM. HE IS VERY COMPLIANT AND BENEFITING.. HAS A NEW CPAP MACHINE SINCE FEBRUARY OF THIS YEAR IT IS FUNCTIONING VERY WELL. Code(s): G47.33 - Obstructive sleep apnea (adult) (pediatric); Z99.89 - Dependence on other enabling machines and devices Category: Medical Plan: Obstructive sleep apnea is a contributing factor to the patient's anemia and weight issues. No specific treatment changes were discussed during this visit. (3) HTN (hypertension): Comment: Stable Code(s): I10 - Essential (primary) hypertension Category: Medical Qualifiers: Hypertension type: essential hypertension Qualified Code(s): I10 - Essential (primary) hypertension Plan: Patient's blood pressure acceptable today in office. Will continue his current dose antihypertensive medication with goal blood pressure to remain below 140/90 Orders: Orders Influenza [id number] Immunization Today Z23 - Encounter for immunization Referrals Medical Weight Management Referral E66.01 - Morbid (severe) obesity due to excess calories Medications: New ibuprofen 800 mg PO Q8H PRN 90 tabs 0RF pain 30 days E66.01 - Morbid (severe) obesity due to excess calories, M54.50 - Low back pain, unspecified acetaminophen 500 mg PO TID PRN 90 tabs 0RF fever 30 days M54.50 - Low back pain, unspecified tirzepatide (weight loss) (Zepbound) for 4 weeks 2.5 mg (0.5 mL) subcut QWEEK 2 mL 0RF 4 weeks E66.813 - Obesity, class 3, G47.33 - Obstructive sleep apnea (adult) (pediatric), Z99.89 - Dependence on other enabling machines and devices Refilled tizanidine 4 mg PO TID PRN 30 tabs 0RF muscle spasticity 30 days E11.9 - Type 2 diabetes mellitus without complications Discontinued ibuprofen Discontinued Reason: Doctor's Order 400 mg PO Q8H PRN 60 tabs 0RF pain
== END 2025-02-09 09:32 | disposition home or self-care (01) ==
LOC: HO.HMCH 08:30
PROVIDERS: PCP Physician Assistant; Visit Provider Physician Assistant
DX: Z23 Encounter for immunization (principal)

== ENCOUNTER → 2025-02-09 08:29 | Outpatient (BNVA) | payer OTHER, SELFPAY | PROVIDERS: PCP Physician Assistant; Visit Provider Physician Assistant | DX: Z00.00 Encounter for general adult medical examination without abnormal findings (principal); E66.813 Obesity, class 3; G47.33 Obstructive sleep apnea (adult) (pediatric); Z99.89 Dependence on other enabling machines and devices; I10 Essential (primary) hypertension; R32 Unspecified urinary incontinence; M47.816 Spondylosis without myelopathy or radiculopathy, lumbar region; Z13.39 Encounter for screening examination for other mental health and behavioral disorders; Z23 Encounter for immunization | CPT/HCPCS: 90471; 90656; 96127; 99396 ==